=== PATIENT | male | born 1960 | race Caucasian/White ===

== ENCOUNTER 2020-07-27 15:31 | Outpatient (REF) | payer OTHER, SELFPAY ==
--- NOTE | ~2020-07-27 | XR_ITS ---
EXAMINATION: XR ANKLE, RIGHT CLINICAL INFORMATION: Pain and right ankle and right foot. COMPARISON: None TECHNIQUE: AP, lateral, and mortise views of the right ankle. FINDINGS: There is mild lateral malleolar soft tissue swelling. Ankle mortise and subtalar joints are normal. There is small calcaneal heel and retrocalcaneal enthesophytes. XR/XR ankle RT min 3V IMPRESSION: Small calcaneal heel and retrocalcaneal enthesophytes. No visible acute fracture or dislocation. Mild lateral malleolar soft tissue swelling.
== END 2020-07-27 15:32 | disposition home or self-care (01) ==
LOC: HO.HMGCX 15:31
PROVIDERS: PCP Nurse Practitioner Family; Visit Provider Nurse Practitioner Family
DX: M25.571 Pain in right ankle and joints of right foot (principal)
CPT/HCPCS: 73610

== ENCOUNTER 2020-08-01 06:09 | Outpatient (REF) | payer MEDICARE, SELFPAY ==
[2020-08-01 11:32] LABS: Alanine Aminotransferase 35 U/L (0-40); Albumin Level 4.3 g/dL (3.5-5.0); Alkaline Phosphatase 80 U/L (39-117); Anion Gap 16 (12-20); Aspartate Amino Transferase 25 U/L (5-37); Bilirubin Total 0.7 mg/dL (0.0-1.0); Blood Urea Nitrogen 18 mg/dL (9-16); Calcium 9.2 mg/dL (8.4-10.2); Carbon Dioxide 24 mmol/L (22-29); Chloride 106 mmol/L (96-108); Cholesterol 185 mg/dL; Estimated Glomerular Filt Rate > 60; Glucose Fasting 90 mg/dL (60-99); HDL Cholesterol 33 mg/dL; LDL Cholesterol Calculated 135 mg/dl; Potassium 4.5 mmol/L (3.3-5.1); Sodium 141 mmol/L (135-145); Total Protein 7.4 g/dL (6.5-8.0); Triglycerides 89 mg/dL
[2020-08-01 11:57] LABS: Prostate Specific Antigen Scr 5.77 ng/mL (<0.05-4.0); TSH reflex Free T4 3.51 uIU/mL (0.32-4.0)
== END 2020-08-01 06:10 | disposition home or self-care (01) ==
LOC: HO.HMGCLDS 06:09
PROVIDERS: PCP Nurse Practitioner Family; Visit Provider Nurse Practitioner Family
DX: I10 Essential (primary) hypertension (principal); Z12.5 Encounter for screening for malignant neoplasm of prostate
CPT/HCPCS: 36415; 80053; 80061; 84153; 84443

== ENCOUNTER → 2020-09-29 10:08 | Outpatient (BNVA) | payer MEDICARE, SELFPAY | PROVIDERS: PCP Nurse Practitioner Family; Visit Provider Internal Medicine | DX: E66.01 Morbid (severe) obesity due to excess calories (principal); G47.30 Sleep apnea, unspecified | CPT/HCPCS: 99202 ==

== ENCOUNTER 2020-10-05 06:10 | Outpatient (REF) | payer MEDICARE, SELFPAY ==
[2020-10-05 12:26] LABS: Alanine Aminotransferase 29 U/L (0-40); Albumin Level 4.4 g/dL (3.5-5.0); Alkaline Phosphatase 79 U/L (39-117); Anion Gap 16 (12-20); Aspartate Amino Transferase 23 U/L (5-37); Bilirubin Total 0.5 mg/dL (0.0-1.0); Blood Urea Nitrogen 31 mg/dL (9-16); Calcium 9.5 mg/dL (8.4-10.2); Carbon Dioxide 21 mmol/L (22-29); Chloride 109 mmol/L (96-108); Cholesterol 183 mg/dL; Estimated Glomerular Filt Rate > 60; Glucose Fasting 107 mg/dL (60-99); HDL Cholesterol 32 mg/dL; LDL Cholesterol Calculated 134 mg/dl; Potassium 4.7 mmol/L (3.3-5.1); Sodium 141 mmol/L (135-145); Total Protein 7.4 g/dL (6.5-8.0); Triglycerides 85 mg/dL
[2020-10-05 12:39] LABS: Prostate Specific Antigen Scr 7.94 ng/mL (<0.05-4.0); TSH reflex Free T4 2.17 uIU/mL (0.32-4.0)
== END 2020-10-05 06:11 | disposition home or self-care (01) ==
LOC: HO.HMGCLDS 06:10
PROVIDERS: PCP Nurse Practitioner Family; Visit Provider Nurse Practitioner Family
DX: Z00.00 Encounter for general adult medical examination without abnormal findings (principal); Z12.5 Encounter for screening for malignant neoplasm of prostate
CPT/HCPCS: 36415; 80053; 80061; 84153; 84443

== ENCOUNTER → 2020-10-11 12:49 | Outpatient (REF) | payer OTHER, SELFPAY | LOC: HO.SL 12:49 | PROVIDERS: PCP Nurse Practitioner Family; Visit Provider Internal Medicine | DX: G47.33 Obstructive sleep apnea (adult) (pediatric) (principal); E66.01 Morbid (severe) obesity due to excess calories | CPT/HCPCS: 95806 ==

== ENCOUNTER → 2020-11-14 14:11 | Outpatient (BNVA) | payer OTHER, SELFPAY | PROVIDERS: PCP Nurse Practitioner Family; Visit Provider Internal Medicine | DX: E66.01 Morbid (severe) obesity due to excess calories (principal); G47.30 Sleep apnea, unspecified | CPT/HCPCS: 99212 ==

== ENCOUNTER 2021-04-07 06:10 | Outpatient (REF) | payer OTHER, SELFPAY ==
[2021-04-07 11:50] LABS: Appearance Urine CLEAR; Color Urine YELLOW; Glucose Urine UA NEG (NEG); Leukocyte Esterase Urine NEG (NEG); Nitrite Urine NEG (NEG); PH 5.5 (5.0-8.0); Specific Gravity - Urine >= 1.030 (1.005-1.025); UACC Culture Trigger NO; Urine Blood NEG (NEG); Urine Ketones NEG (NEG); Urine Protein 1+ MG/DL (NEG-TRACE)
[2021-04-07 12:20] LABS: Alanine Aminotransferase 36 U/L (0-40); Albumin Level 4.2 g/dL (3.5-5.0); Alkaline Phosphatase 73 U/L (39-117); Anion Gap 13 (12-20); Aspartate Amino Transferase 24 U/L (5-37); Bilirubin Total 0.5 mg/dL (0.0-1.0); Blood Urea Nitrogen 17 mg/dL (9-16); Calcium 9.4 mg/dL (8.4-10.2); Carbon Dioxide 23 mmol/L (22-29); Chloride 111 mmol/L (96-108); Cholesterol 165 mg/dL; Estimated Glomerular Filt Rate > 60; Glucose Fasting 98 mg/dL (60-99); HDL Cholesterol 28 mg/dL; LDL Cholesterol Calculated 118 mg/dl; Potassium 4.2 mmol/L (3.3-5.1); Sodium 143 mmol/L (135-145); Total Protein 7.2 g/dL (6.5-8.0); Triglycerides 99 mg/dL
[2021-04-07 12:29] LABS: RBC Urine 0 /HPF (0); WBC Urine 0 /HPF (0-4)
[2021-04-07 12:30] LABS: Mucus Urine 1+ /LPF; Squamous Epithelial Cell Urine TRACE /LPF
[2021-04-07 12:40] LABS: TSH reflex Free T4 2.95 uIU/mL (0.32-4.0)
== END 2021-04-07 06:11 | disposition home or self-care (01) ==
LOC: HO.HMGCLDS 06:10
PROVIDERS: PCP Nurse Practitioner Family; Visit Provider Nurse Practitioner Family
DX: I10 Essential (primary) hypertension (principal)
CPT/HCPCS: 36415; 80053; 80061; 81001; 81003; 84443

== ENCOUNTER 2021-05-15 11:52 | Outpatient (REF) | payer OTHER, SELFPAY ==
[2021-05-15 14:37] LABS: Prostate Specific Antigen Scr 7.42 ng/mL (<0.05-4.0)
== END 2021-05-15 11:53 | disposition home or self-care (01) ==
LOC: HO.HMGCLDS 11:52
PROVIDERS: PCP Nurse Practitioner Family; Visit Provider Nurse Practitioner Family
DX: Z12.5 Encounter for screening for malignant neoplasm of prostate (principal)
CPT/HCPCS: 36415; 84153

== ENCOUNTER 2021-12-25 10:02 | Outpatient (REF) | payer OTHER, SELFPAY ==
--- NOTE | ~2021-12-25 | XR_ITS ---
EXAMINATION: XR KNEE AP STANDING CLINICAL INFORMATION: Bilateral knee pain COMPARISON: None TECHNIQUE: AP bilateral standing view of the knees was obtained. Weightbearing lateral view left knee FINDINGS: There is severe loss of medial compartment joint space with bone versus bone apposition and moderate periarticular spurring. There is genu varus deformity of both knees. No lytic or sclerotic process seen. There is mild superior patellar spurring. Mild suprapatellar joint effusion is noted on weightbearing lateral view. XR/XR knee standing BI IMPRESSION: Severe degenerative changes bilateral knee medial compartments with sclerosis. Genu of varus deformity bilateral knee. Mild suprapatellar joint effusion with a moderate-sized superior patellar spur.
== END 2021-12-25 10:03 | disposition home or self-care (01) ==
LOC: HO.HMGCX 10:02
PROVIDERS: PCP Nurse Practitioner Family; Visit Provider Nurse Practitioner Family
DX: M25.561 Pain in right knee (principal); M25.562 Pain in left knee
CPT/HCPCS: 73565

== ENCOUNTER → 2022-02-06 08:48 | Outpatient (BNVA) | payer OTHER, SELFPAY | PROVIDERS: PCP Nurse Practitioner Family; Visit Provider Physician Assistant | DX: M17.0 Bilateral primary osteoarthritis of knee (principal) | CPT/HCPCS: 20610; 99202; J1040 ==

== ENCOUNTER 2022-03-06 07:54 | Outpatient (REF) | payer OTHER, SELFPAY ==
[2022-03-06 11:41] LABS: Appearance Urine Clear; Color Urine Yellow; Glucose Urine UA Negative (Negative); Leukocyte Esterase Urine Negative (Negative); Nitrite Urine Negative (Negative); PH 5.5 (5.0-9.0); Urine Blood Negative (Negative); Urine Ketones Negative (Negative); Urine Protein Negative (Neg-Trace)
[2022-03-06 11:49] LABS: MANUAL DIFF FLAG NO
[2022-03-06 11:56] LABS: Basophils Absolute Auto 0.1 X10*3/uL (0.0-0.2); Basophils Percent Auto 1.1 % (0-2); Eosinophils Absolute Auto 0.3 X10*3/uL (0.0-0.4); Eosinophils Percent Auto 4.1 % (0-4); Hematocrit 48.2 % (42.0-52.0); Imm Gran Abs Auto 0.01 X10*3/uL (0.00-0.03); Imm Gran Pct Auto 0.2 % (0.0-0.4); Lymphocytes Absolute Auto 1.7 X10*3/uL (1.2-4.9); Lymphocytes Percent Auto 24.9 % (20-40); Mean Corpuscular HGB Conc 33.2 g/dl (31.0-36.0); Mean Corpuscular Hemoglobin 28.2 pg (27.0-33.0); Mean Platelet Volume 9.4 fL (9.4-12.4); Monocytes Absolute Auto 0.5 X10*3/uL (0.1-1.2); Monocytes Percent Auto 7.5 % (2-11); Neutrophils Absolute Auto 4.2 x10*3/uL (2.0-8.3); Neutrophils Percent Auto 62.2 % (45-73); Platelet Count 203 X10*3/uL (160-400); Red Blood Count 5.67 X10*6/uL (4.60-5.80); Red Cell Distribution Width 14.1 % (11.0-16.0); White Blood Count 6.7 X10*3/uL (4.8-10.8)
[2022-03-06 12:36] LABS: Alanine Aminotransferase 19 U/L (0-40); Albumin Level 4.3 g/dL (3.5-5.0); Alkaline Phosphatase 78 U/L (39-117); Anion Gap 16 (12-20); Aspartate Amino Transferase 17 U/L (5-37); Bilirubin Total 0.4 mg/dL (0.0-1.0); Blood Urea Nitrogen 22 mg/dL (9-16); Calcium 9.5 mg/dL (8.4-10.2); Carbon Dioxide 23 mmol/L (22-29); Chloride 106 mmol/L (96-108); Cholesterol 182 mg/dL; Estimated Glomerular Filt Rate > 60; Glucose Fasting 93 mg/dL (60-99); HDL Cholesterol 38 mg/dL; LDL Cholesterol Calculated 133 mg/dl; Potassium 4.9 mmol/L (3.3-5.1); Sodium 140 mmol/L (135-145); Total Protein 7.5 g/dL (6.5-8.0); Triglycerides 55 mg/dL
[2022-03-06 13:20] LABS: TSH reflex Free T4 2.72 uIU/mL (0.32-4.0)
== END 2022-03-06 07:55 | disposition home or self-care (01) ==
LOC: HO.CHCLDS 07:54
PROVIDERS: PCP Nurse Practitioner Family; Visit Provider Nurse Practitioner Family
DX: I10 Essential (primary) hypertension (principal)
CPT/HCPCS: 36415; 80053; 80061; 81003; 84443; 85025

== ENCOUNTER → 2022-03-23 12:18 | Outpatient (BNVA) | payer OTHER, SELFPAY | PROVIDERS: PCP Nurse Practitioner Family; Visit Provider Physician Assistant | DX: M17.11 Unilateral primary osteoarthritis, right knee (principal); M17.12 Unilateral primary osteoarthritis, left knee | CPT/HCPCS: 20610; J7318 ==

== ENCOUNTER → 2022-08-07 08:01 | Outpatient (BNVA) | payer OTHER, SELFPAY | PROVIDERS: PCP Nurse Practitioner Family; Visit Provider Physician Assistant | DX: M17.0 Bilateral primary osteoarthritis of knee (principal); M21.162 Varus deformity, not elsewhere classified, left knee; M21.161 Varus deformity, not elsewhere classified, right knee; E66.01 Morbid (severe) obesity due to excess calories; Z68.42 Body mass index [BMI] 45.0-49.9, adult | CPT/HCPCS: 20610; 99212; J1040 ==

== ENCOUNTER 2022-09-24 06:03 | Outpatient (REF) | payer OTHER, SELFPAY ==
[2022-09-24 11:30] LABS: MANUAL DIFF FLAG NO
[2022-09-24 11:43] LABS: Appearance Urine Clear; Color Urine Yellow; Glucose Urine UA Negative (Negative); Leukocyte Esterase Urine Negative (Negative); Nitrite Urine Negative (Negative); PH 5.5 (5.0-9.0); UMIC TRIGGER UACC YES; Urine Blood Negative (Negative); Urine Ketones Negative (Negative); Urine Protein 30 (1+) mg/dL (Neg-Trace)
[2022-09-24 11:50] LABS: Bacteria Urine None Seen (None Seen); Basophils Absolute Auto 0.1 X10*3/uL (0.0-0.2); Basophils Percent Auto 1.4 % (0-2); Eosinophils Absolute Auto 0.3 X10*3/uL (0.0-0.4); Eosinophils Percent Auto 4.3 % (0-4); Hematocrit 48.7 % (42.0-52.0); Hemoglobin 16.1 g/dl (14.0-18.0); Hyaline Casts Urine 0-2 /LPF (0-2); Imm Gran Abs Auto 0.03 X10*3/uL (0.00-0.03); Imm Gran Pct Auto 0.4 % (0.0-0.4); Lymphocytes Absolute Auto 2.1 X10*3/uL (1.2-4.9); Lymphocytes Percent Auto 27.7 % (20-40); Mean Corpuscular HGB Conc 33.1 g/dl (31.0-36.0); Mean Corpuscular Hemoglobin 28.2 pg (27.0-33.0); Mean Corpuscular Volume 85.4 fL (80.0-98.0); Mean Platelet Volume 9.8 fL (9.4-12.4); Monocytes Absolute Auto 0.5 X10*3/uL (0.1-1.2); Monocytes Percent Auto 7.3 % (2-11); Neutrophils Absolute Auto 4.4 x10*3/uL (2.0-8.3); Neutrophils Percent Auto 58.9 % (45-73); Platelet Count 237 X10*3/uL (160-400); RBC Urine 0-2 /HPF (0-2); Red Cell Distribution Width 14.4 % (11.0-16.0); Squamous Epithelial Cell Urine 0-2 /HPF (0-2); WBC Urine 0-5 /HPF (0-5); White Blood Count 7.4 X10*3/uL (4.8-10.8)
[2022-09-24 12:09] LABS: Alanine Aminotransferase 21 U/L (0-40); Albumin Level 4.1 g/dL (3.5-5.0); Alkaline Phosphatase 77 U/L (39-117); Anion Gap 12 (12-20); Aspartate Amino Transferase 18 U/L (5-37); Bilirubin Total 0.6 mg/dL (0.0-1.0); Blood Urea Nitrogen 19 mg/dL (9-16); Calcium 9.2 mg/dL (8.4-10.2); Carbon Dioxide 24 mmol/L (22-29); Chloride 108 mmol/L (96-108); Cholesterol 189 mg/dL; Estimated Glomerular Filt Rate > 60; Glucose Fasting 105 mg/dL (60-99); HDL Cholesterol 33 mg/dL; LDL Cholesterol Calculated 142 mg/dl; Potassium 4.4 mmol/L (3.3-5.1); Sodium 140 mmol/L (135-145); Triglycerides 73 mg/dL
[2022-09-24 12:26] LABS: Prostate Specific Antigen Scr 8.11 ng/mL (<0.05-4.0); TSH reflex Free T4 3.59 uIU/mL (0.32-4.0)
[2022-09-25 10:54] LABS: Free Prostate Spec Ag 1.7 ng/mL; Percent Free Prostate Spec Ag 20 % (calc) (>25); Prostate Specific Ag Total 8.6 ng/mL (< OR = 4.0)
== END 2022-09-24 06:04 | disposition home or self-care (01) ==
LOC: HO.HMGCLDS 06:03
PROVIDERS: Absent Provider Physician Assistant; PCP Nurse Practitioner Family; Visit Provider Nurse Practitioner Family
DX: Z12.5 Encounter for screening for malignant neoplasm of prostate (principal); R97.20 Elevated prostate specific antigen [PSA]; I10 Essential (primary) hypertension
CPT/HCPCS: 36415; 80053; 80061; 81001; 84153; 84154; 84443; 85025

== ENCOUNTER 2022-11-29 08:37 | Outpatient (AMB) | payer OTHER, SELFPAY ==
--- NOTE | 2022-11-29 08:44 | A.OFFPC_ITS ---
Vital Signs 11/29/22 08:45 Height 5 ft 11 in Weight 345 lb 4 oz BMI 48.1 BP 130/78 Blood Pressure Location Lt brachial Position Sitting Pulse 89 Pulse Source Pulse Oximeter Pulse Oximetry (%) 96 Oxygen Delivery Method Room Air Intake Visit Reasons: Annual PE Allergies CLEAR TAPE Allergy (Unknown, Uncoded 11/29/22 08:47) RASH Medication List - Last Reconciled 11/29/22 by DELONTE Tejada amlodipine 10 mg PO DAILY 90 days aspirin 1 tab PO DAILY hydrocortisone 2.5% 1 appl topical TID PRN ketoconazole 2% 1 appl topical DAILY 14 days lisinopril 40 mg PO DAILY tadalafil 20 mg PO BEDTIME triamcinolone acetonide 0.1% 1 appl topical DAILY 30 days Tobacco use date assessed: 11/29/22 Dental Screening Dental Screen Date: 11/29/22 Did you have a dental visit in the last 12 months?: Yes Did you have a dental problem in the last 6 months where you did not have access to dental care?: No Was dental information given to patient?: Yes HPI Annual PE HPI Details Pt is here for a PE. Will order labs. PSA is up to date, sees urology. Colon screen is up to date. Pt reports dermatitis to his BLE. ? eczema. He uses triamcinolone cream which helps somewhat, will refill. Refuses pneumonia vaccines. Pt is requesting STD testing, though denies any symptoms, will order. [facility] Medical History Hx of diverticulitis of colon Morbid obesity Surgical History Hx of hernia repair Family History Father Hypertension CVD (cardiovascular disease) Mother Hypertension Social History Housing: House Alcohol intake: current Alcohol intake frequency: holidays/special occasions only Patient Tobacco Use Status: Never used Tobacco e-Cigarette/Vaping Use: Never Used Second Hand Smoke Exposure: No service: No Current occupational status: retired and disabled Cognitive needs: No Hearing needs: No Vision needs: No Questionnaire PHQ-9 Over the last 2 weeks, how often have you been bothered by any of the following problems? 03561 - PHQ-9 Billing: Patient declined-do not bill Source: Developed by Drs. Zackary Pace, Zuri Pickett, Jaime Young and colleagues, with an educational cecilia from [employer]. Thrive Questionnaire Date Thrive assessed: 11/29/22 I am a: Patient What is your living situation today?: I choose not to answer this question Within the past 12 months, did the food you bought not last and you didn't have the money to get more?: I choose not to answer this question Within the past 12 months, did you worry whether your food would run out before you got money to buy more?: I choose not to answer this question Do you have trouble paying for medicines?: I choose not to answer this question Do you have trouble getting transportation to medical appointments?: I choose not to answer this question Do you have trouble paying your heating and electricity bill?: I choose not to answer this question Do you have trouble taking care of your child, family member or friend?: I choose not to answer this question Do you have trouble with day-to-day activities such as bathing, preparing meals, shopping, managing finances, etc.?: I choose not to answer this question Are you currently unemployed and looking for a job?: I choose not to answer this question Are you interested in more education?: I choose not to answer this question Currently or been in a relationship where the following occur: I choose not to answer this question AUDIT C Alcohol Use Questionnaire (AUDIT-C) 1. How often do you have a drink containing alcohol?: Never Total Score: 0 Score Reviewed/Action Taken: Yes SREEKANTH-7 AMB Questionnaire SREEKANTH-7 Date SREEKANTH - 7 assessed: 11/29/22 Source: Developed by Drs. Zackary Pace, Zuri Pickett, Jaime Young and colleagues, with an educational cecilia from [employer]. SREEKANTH-7 Assessment Billing SREEKANTH-7 Assessment Tool: pt declined-do not bill Review of Systems Const Denies chills and Denies fever(s) Eyes Denies blurry vision ENT Denies vertigo, Denies dizziness and Denies sore throat Card Denies chest pain at rest, Denies chest pain with activity, Denies diaphoresis, Denies dyspnea and Denies dyspnea on exertion Resp Denies cough, Denies dyspnea, Denies dyspnea on exertion and Denies wheezing GI Denies abdominal pain, Denies melena, Denies hematochezia, Denies constipation, Denies diarrhea and Denies loose stools Denies hematuria Musc Denies numbness and Denies tingling Skin/Breast Denies lesions Neuro Denies vertigo, Denies dizziness, Denies numbness and Denies tingling Psych Denies anxiety, Denies depression, Denies homicidal ideation, Denies suicidal ideation and Denies other (substance abuse) Aller/Immun Denies wheezing Physical exam (Primary Care) Vital Signs: Last Vital Signs Pulse 89 11/29/22 08:45 BP 130/78 11/29/22 08:45 Pulse Ox 96 11/29/22 08:45 Oxygen Delivery Method Room Air 11/29/22 08:45 BMI result Body Mass Index 48.1 Tobacco/Smoking Status: Tobacco use Status Tobacco use date assessed 11/29/22 11/29/22 08:54 Patient Tobacco Use Status Never used Tobacco 11/29/22 08:54 e-Cigarette/Vaping Use Never Used 11/29/22 08:54 Thrive Assessment: Date of Thrive Assessment Date Thrive assessed 11/29/22 11/29/22 08:54 Currently or been in a relationship where the following occur: I choose not to answer this question Const General: cooperative Nutritional Appearance: obese morbidly obese Orientation/consciousness: patient oriented x3 HENMT Head: Yes normal to inspection, Yes normocephalic and Yes atraumatic Ears: TM's normal bilaterally Eyes General: appearance normal, both eyes and all related structures Alignment and Position: alignment normal and position normal Neck Neck: Yes normal visual inspection and Yes no lymphadenopathy Thyroid: Thyroid normal Resp Effort & Inspection: normal respiratory effort Auscultation: clear to auscultation bilaterally Cardio Rate: regular rate Rhythm: regular rhythm Heart sounds: S1 normal heart sound present, S2 normal heart sound present and no murmurs GI Palpation (GI): Soft to palpation and nontender Auscultation: normal bowel sounds Male General Exam: Yes normal external exam Penis: normal penis Scrotum: scrotum normal, testes descended bilaterally and no inguinal hernias Testes: no testicular mass Skin Other: macular circular slightly raised singular lesions throughout BLE, dry appearing, range in sizes, right hand 3rd finger medial aspect with faint scabbing, cracking, dermatitis, also noted extensively to right 5th finger, extensive healed scarring to abdomen Rashes: no rashes Neuro General: patient oriented x3, moves all extremities, no focal motor deficits and deep tendon reflexes 2+ bilaterally Romberg Test: Negative Psych Appearance: grossly normal Mental Status: mental status grossly normal Speech and movement: Normal speech and movement present Affect: normal affect Attitude: cooperative Thought process: Normal thought process present Thought content: Normal thought content present Insight: Good insight present (Psych) Judgement: Good judgement present (Psych) Assessment and Plan Assessment & Plan (1) Physical exam: Code(s): Z00.00 - Encounter for general adult medical examination without abnormal findings Plan: Labs ordered (2) Screening PSA (prostate specific antigen): Code(s): Z12.5 - Encounter for screening for malignant neoplasm of prostate (3) Screening for STD (sexually transmitted disease): Code(s): Z11.3 - Encounter for screening for infections with a predominantly sexual mode of transmission Plan: Labs ordered Plan The patient agreed to the use of a medical supervisor for this encounter. Scribed for PHOENIX Salamanca by Nohelia Rao medical supervisor, on 11/29/2022 at 09:00 EST. Orders: Orders Comprehensive Met. Panel Today Z00.00 - Encounter for general adult medical examination without abnormal findings Comprehensive [place]. Panel Fast Today Z00.00 - Encounter for general adult medical examination without abnormal findings Lipid Panel Today Z00.00 - Encounter for general adult medical examination without abnormal findings TSH reflex Free T4 Today Z00.00 - Encounter for general adult medical examination without abnormal findings UA CC w/rflx Micro + Cult Today Z00.00 - Encounter for general adult medical examination without abnormal findings CT NG by PCR Today Z11.3 - Encounter for screening for infections with a predominantly sexual mode of transmission Hepatitis A,B,C Profile Today Z11.3 - Encounter for screening for infections with a predominantly sexual mode of transmission HIV Ab/Ag Today Z11.3 - Encounter for screening for infections with a predominantly sexual mode of transmission Syphilis Screen Today Z11.3 - Encounter for screening for infections with a predominantly sexual mode of transmission Medications: Refilled triamcinolone acetonide 0.1% 1 appl topical DAILY 80 grams 0RF 30 days Coding Level of Care Code Est Pt Prev Care 40-64y(76244) Diagnoses Physical exam Z00.00 Screening PSA (prostate specific antigen) Z12.5 Screening for STD (sexually transmitted disease) Z11.3
[2022-11-29 08:45] VITALS: BP 130/78; PULSE 89; O2SAT 96; BMI 48.1
== END 2022-11-29 10:28 | disposition home or self-care (01) ==
PROVIDERS: Visit Provider Nurse Practitioner Family
DX: Z00.00 Encounter for general adult medical examination without abnormal findings (principal); Z12.5 Encounter for screening for malignant neoplasm of prostate; Z11.3 Encounter for screening for infections with a predominantly sexual mode of transmission
CPT/HCPCS: 99396

== ENCOUNTER 2022-12-11 06:15 | Outpatient (REF) | payer OTHER, SELFPAY ==
[2022-12-11 11:44] LABS: Appearance Urine Clear; Color Urine Yellow; Glucose Urine UA Negative (Negative); Leukocyte Esterase Urine Negative (Negative); Nitrite Urine Negative (Negative); UMIC TRIGGER UACC YES; Urine Blood Negative (Negative); Urine Ketones Negative (Negative); Urine Protein 30 (1+) mg/dL (Neg-Trace)
[2022-12-11 11:48] LABS: Bacteria Urine None Seen (None Seen); Hyaline Casts Urine 0-2 /LPF (0-2); RBC Urine 0-2 /HPF (0-2); Squamous Epithelial Cell Urine 0-2 /HPF (0-2); WBC Urine 0-5 /HPF (0-5)
[2022-12-11 13:13] LABS: Alanine Aminotransferase 21 U/L (0-40); Alkaline Phosphatase 71 U/L (39-117); Anion Gap 10 (12-20); Aspartate Amino Transferase 18 U/L (5-37); Bilirubin Total 0.4 mg/dL (0.0-1.0); Blood Urea Nitrogen 17 mg/dL (9-16); Calcium 9.4 mg/dL (8.4-10.2); Carbon Dioxide 24 mmol/L (22-29); Chloride 110 mmol/L (96-108); Cholesterol 180 mg/dL; Estimated Glomerular Filt Rate > 60; Glucose Fasting 105 mg/dL (60-99); Glucose Random 105 mg/dL (60-115); HDL Cholesterol 32 mg/dL; LDL Cholesterol Calculated 133 mg/dl; Potassium 4.2 mmol/L (3.3-5.1); Sodium 140 mmol/L (135-145); Total Protein 7.2 g/dL (6.5-8.0); Triglycerides 78 mg/dL
[2022-12-11 13:47] LABS: CT PCR NOT DETECTED (Not Detect.); NG PCR NOT DETECTED (Not Detect.)
[2022-12-12 03:59] LABS: Syphilis Screen Nonreactive (Nonreactive)
[2022-12-12 04:43] LABS: HBS Num1 4.51 mIU/mL (0-7.99); HBc Num1 0.08 S/CO (0.00-0.79); HBsAGNum1 0.33 S/CO (0.00-0.99); HIV AB/AG Nonreactive (Nonreactive); HIV Num 1 0.05 S/CO (0.00-0.99); Hepatitis A Antibody IgM 0.18 Index (0-0.79); Hepatitis B Core Antibody Nonreactive (Nonreactive); Hepatitis B Surface Antigen Negative (Negative); ~HepC Num1 0.06 S/CO (0.00-0.79); ~Hepatitis A Antibody IgM Nonreactive (Nonreactive); ~Hepatitis B Surface Antibody NONREACTIVE (Nonreactive); ~Hepatitis C Antibody Nonreactive (Nonreactive)
== END 2022-12-11 06:16 | disposition home or self-care (01) ==
LOC: HO.HMGCLDS 06:15
PROVIDERS: PCP Nurse Practitioner Family; Visit Provider Nurse Practitioner Family
DX: Z00.00 Encounter for general adult medical examination without abnormal findings (principal); Z11.4 Encounter for screening for human immunodeficiency virus [HIV]; Z20.2 Contact with and (suspected) exposure to infections with a predominantly sexual mode of transmission; E78.5 Hyperlipidemia, unspecified
CPT/HCPCS: 0353U; 80053; 80061; 81001; 84443; 86704; 86706; 86709; 86780; 86803; 87340; 87389

== ENCOUNTER 2023-01-17 09:30 | Outpatient (AMB) | payer OTHER, SELFPAY ==
[2023-01-17 09:32] VITALS: BMI 48.1
--- NOTE | 2023-01-17 09:32 | A.OFFVIS_ITS ---
Intake Vital Signs 01/17/23 09:32 Height 5 ft 11 in Weight 345 lb BMI 48.1 Intake Visit Reasons: OV - left knee pain Intake Note: Ralph is a 62 year old male who presents today for his follow up visit s/p bilateral knee injection from 08/07/22. States injection lasted about 2 months. He would like to discuss surgery vs injection today. States he needs a pair of new knees. Xrays updated in office. Allergies CLEAR TAPE Allergy (Unknown, Uncoded 01/17/23 09:36) RASH HPI OV - left knee pain HPI Details 62-year-old male who presents in the off ice today for a follow up of bilateral knee pain. The patient had a cortisone injection in the bilateral knees on 08/07/2022. He claims the injections gave him 2 months of relief. He reports the right knee being worse then the left knee. He would like to discuss surgical intervention verse injections while in the office today. He states he can not stand or ambulate for long periods of time. He states he avoids going to the [employer] due to not being able to walk the store. He states he is no longer able to do things that he enjoys doing due to pain in the bilateral knees. He confirms a history of prior surgery to remove bowel due to diverticulitis. He states he has a bad year with eczema. He denies a history of diabetes mellitus or high cholesterol. Patient has a BMI of 48.1 with a weight of 345 lbs while in the office today, 01/17/2023. [facility] Medical History Hx of diverticulitis of colon Morbid obesity Surgical History Hx of hernia repair Family History Father Hypertension CVD (cardiovascular disease) Mother Hypertension Social History Housing: House Alcohol intake: current Alcohol intake frequency: holidays/special occasions only Patient Tobacco Use Status: Never used Tobacco e-Cigarette/Vaping Use: Never Used Second Hand Smoke Exposure: No service: No Current occupational status: retired and disabled Cognitive needs: No Hearing needs: No Vision needs: No Review of Systems Const All systems reviewed & are unremarkable except as noted in HPI and below Physical Exam Vital Signs: BMI result Body Mass Index 48.1 Const General: cooperative, healthy appearing and no acute distress Resp Effort & Inspection: normal respiratory effort and able to speak in complete sentences Cardio Rate: regular rate Peripheral pulses: Peripheral pulses 2+ throughout GI Palpation (GI): Soft to palpation Skin Lesions: no lesions Rashes: no rashes Extrem Other: Bilateral knees: Varus deformity. Ambulates with antalgic gait. Crepitus with ROM. Full ROM. NVI. Assessment & Plan Assessment & Plan (1) Osteoarthritis of right knee: Code(s): M17.11 - Unilateral primary osteoarthritis, right knee Qualifiers: Osteoarthritis type: unspecified Qualified Code(s): M17.11 - Unilateral primary osteoarthritis, right knee (2) Osteoarthritis of left knee: Code(s): M17.12 - Unilateral primary osteoarthritis, left knee Qualifiers: Osteoarthritis type: unspecified Qualified Code(s): M17.12 - Unilateral primary osteoarthritis, left knee Plan Mr. Sutton is a 62-year-old male who presents in the office today for a follow up of bilateral knee pain. The patient had a cortisone injection in the bilateral knees on 08/07/2022. He claims the injections gave him 2 months of relief. He reports the right knee being worse then the left knee. He would like to discuss surgical intervention verse injections while in the office today. He states he can not stand or ambulate for long periods of time. He states he avoids going to the [employer] due to not being able to walk the store. He states he is no longer able to do things that he enjoys doing due to pain in the bilateral knees. He confirms a history of prior surgery to remove bowel due to diverticulitis. He states he has a bad year with eczema. He denies a history of diabetes mellitus or high cholesterol. Patient has a BMI of 48.1 with a weight of 345 lbs while in the office today, 01/17/2023. I discussed in detail of a right total knee arthroplasty and what to expect pre and post operatively. We discussed the risks, benefits and alternatives to the surgery as well as the rehabilitation course. The risks; which include, but are not limited to infection, bleeding, nerve injury, ongoing pain, swelling, and stiffness, perioperative risk of injury to bones and soft tissues, and blood clots. Dr. Blake was available to see the patient with me while in the office today and a collaborative treatment plan was made. His information was given to Oly ashby, our nurse navigator, to begin the process of surgical clearance. Follow up will be at his preoperative appointment, or sooner if needed. X-rays of the left knee which were obtained while in the office today and were reviewed by me, Maddi Jade PA-C, revealed left knee osteoarthritis. Orders: Orders XR knee LT 2V Today M25.569 - Pain in unspecified knee XR knee standing BI Today M25.569 - Pain in unspecified knee Patient Instructions: Scribed for Maddi Jade PA-C by Grace Callejas medical claims examiner, on 01/17/2023 at 9:32 am, EST. Coding Level of Care Code Est Pt Level 4 (35930) Diagnoses Osteoarthritis of right knee, unspecified osteoarthritis type M17.11 Osteoarthritis type: unspecified Osteoarthritis of left knee, unspecified osteoarthritis type M17.12 Osteoarthritis type: unspecified
== END 2023-01-17 10:29 | disposition home or self-care (01) ==
PROVIDERS: PCP Nurse Practitioner Family; Visit Provider Physician Assistant
DX: M17.0 Bilateral primary osteoarthritis of knee (principal)
CPT/HCPCS: 99214

== ENCOUNTER 2023-01-17 17:21 | Outpatient (REF) | payer OTHER, SELFPAY ==
--- NOTE | ~2023-01-17 | XR_ITS ---
EXAMINATION: XR KNEE, LEFT XR KNEE AP STANDING CLINICAL INFORMATION: Pain. COMPARISON: Radiographs dated 07/17/2020. TECHNIQUE: Four views of the left knee. AP bilateral standing view of the knees was obtained. FINDINGS: Bony alignment and mineralization are normal. There is moderately severe asymmetric narrowing of the medial joint space compartment of the right knee, and the lateral joint space compartment is well-maintained. The lateral and medial joint space compartments show peripheral osteophyte formation. There is marked asymmetric narrowing of the medial joint space compartment of the left knee. The left lateral and patellofemoral joint space compartment are well-maintained. There is left tricompartment peripheral osteophyte formation. No fracture, dislocation or significant joint effusion is seen. There is no foreign body. There is a moderate right and marked left valgus configuration. XR/XR knee standing BI IMPRESSION: 1. There is moderately severe degenerative change of the medial joint space compartment of the right knee, and mild degenerative change is seen of the lateral joint space compartment. 2. There is tricompartment osteoarthritic change of the left knee, most pronounced of the medial joint space compartment, where it is marked. 3. There is a moderate right and marked left valgus configuration.
--- NOTE | ~2023-01-17 | XR_ITS ---
EXAMINATION: XR KNEE, LEFT XR KNEE AP STANDING CLINICAL INFORMATION: Pain. COMPARISON: Radiographs dated 07/17/2020. TECHNIQUE: Four views of the left knee. AP bilateral standing view of the knees was obtained. FINDINGS: Bony alignment and mineralization are normal. There is moderately severe asymmetric narrowing of the medial joint space compartment of the right knee, and the lateral joint space compartment is well-maintained. The lateral and medial joint space compartments show peripheral osteophyte formation. There is marked asymmetric narrowing of the medial joint space compartment of the left knee. The left lateral and patellofemoral joint space compartment are well-maintained. There is left tricompartment peripheral osteophyte formation. No fracture, dislocation or significant joint effusion is seen. There is no foreign body. There is a moderate right and marked left valgus configuration. XR/XR knee LT 2V IMPRESSION: 1. There is moderately severe degenerative change of the medial joint space compartment of the right knee, and mild degenerative change is seen of the lateral joint space compartment. 2. There is tricompartment osteoarthritic change of the left knee, most pronounced of the medial joint space compartment, where it is marked. 3. There is a moderate right and marked left valgus configuration.
== END 2023-01-17 17:22 | disposition home or self-care (01) ==
LOC: HO.HOSX 17:21
PROVIDERS: Visit Provider Physician Assistant
DX: M17.0 Bilateral primary osteoarthritis of knee (principal)
CPT/HCPCS: 73560; 73565; 99212

== ENCOUNTER → 2023-03-19 12:34 | Outpatient (BNVA) | payer OTHER, SELFPAY | PROVIDERS: PCP Nurse Practitioner Family; Visit Provider Orthopaedic Surgery ==

== ENCOUNTER 2023-03-29 08:17 | Outpatient (REF) | payer OTHER, SELFPAY ==
[2023-03-29 10:25] LABS: MANUAL DIFF FLAG NO
[2023-03-29 10:29] LABS: Basophils Absolute Auto 0.1 X10*3/uL (0.0-0.2); Basophils Percent Auto 1.4 % (0-2); Eosinophils Absolute Auto 0.3 X10*3/uL (0.0-0.4); Eosinophils Percent Auto 5.9 % (0-4); Hematocrit 49.1 % (42.0-52.0); Hemoglobin 16.7 g/dl (14.0-18.0); Imm Gran Abs Auto 0.02 X10*3/uL (0.00-0.03); Imm Gran Pct Auto 0.4 % (0.0-0.4); Lymphocytes Absolute Auto 1.4 X10*3/uL (1.2-4.9); Lymphocytes Percent Auto 25.7 % (20-40); Mean Corpuscular Hemoglobin 28.3 pg (27.0-33.0); Mean Corpuscular Volume 83.1 fL (80.0-98.0); Monocytes Absolute Auto 0.5 X10*3/uL (0.1-1.2); Monocytes Percent Auto 8.2 % (2-11); Neutrophils Absolute Auto 3.3 x10*3/uL (2.0-8.3); Neutrophils Percent Auto 58.4 % (45-73); Platelet Count 235 X10*3/uL (160-400); Red Blood Count 5.91 X10*6/uL (4.60-5.80); Red Cell Distribution Width 13.4 % (11.0-16.0); White Blood Count 5.6 X10*3/uL (4.8-10.8)
[2023-03-29 10:41] LABS: Appearance Urine Turbid; Color Urine Yellow; Glucose Urine UA Negative (Negative); Leukocyte Esterase Urine Negative (Negative); Nitrite Urine Negative (Negative); PH 5.5 (5.0-9.0); UMIC TRIGGER UACC YES; Urine Blood Negative (Negative); Urine Ketones Negative (Negative); Urine Protein 30 (1+) mg/dL (Neg-Trace)
[2023-03-29 10:43] LABS: Bacteria Urine None Seen (None Seen); Hyaline Casts Urine 0-2 /LPF (0-2); RBC Urine 0-2 /HPF (0-2); Squamous Epithelial Cell Urine 0-2 /HPF (0-2); WBC Urine 0-5 /HPF (0-5)
[2023-03-29 10:53] LABS: Alanine Aminotransferase 18 U/L (0-40); Albumin Level 4.2 g/dL (3.5-5.0); Alkaline Phosphatase 75 U/L (39-117); Anion Gap 11 (12-20); Aspartate Amino Transferase 20 U/L (5-37); Bilirubin Total 0.4 mg/dL (0.0-1.0); Blood Urea Nitrogen 16 mg/dL (9-16); Calcium 9.5 mg/dL (8.4-10.2); Carbon Dioxide 23 mmol/L (22-29); Chloride 111 mmol/L (96-108); Cholesterol 178 mg/dL (<200); Estimated Glomerular Filt Rate > 60; Glucose Fasting 108 mg/dL (60-99); HDL Cholesterol 26 mg/dL (>40); LDL Cholesterol Calculated 135 mg/dL (<100); Potassium 4.3 mmol/L (3.3-5.1); Sodium 141 mmol/L (135-145); Total Protein 7.7 g/dL (6.5-8.0); Triglycerides 85 mg/dL (<150)
[2023-03-29 11:08] LABS: TSH reflex Free T4 1.89 uIU/mL (0.32-4.0)
[2023-03-29 11:26] LABS: PSA,Total (Free>4and<10) 7.96 ng/mL (0.00-4.00)
[2023-04-01 10:13] LABS: Free Prostate Spec Ag 1.6 ng/mL; Percent Free Prostate Spec Ag 21 % (calc) (>25); Prostate Specific Ag Total 7.8 ng/mL (< OR = 4.0)
== END 2023-03-29 08:18 | disposition home or self-care (01) ==
LOC: HO.HMGCLDS 08:17
PROVIDERS: PCP Nurse Practitioner Family; Visit Provider Nurse Practitioner Primary Care
DX: Z00.00 Encounter for general adult medical examination without abnormal findings (principal); Z12.5 Encounter for screening for malignant neoplasm of prostate; I10 Essential (primary) hypertension
CPT/HCPCS: 36415; 80053; 80061; 81001; 84153; 84154; 84443; 85025

== ENCOUNTER 2023-04-01 07:32 | Outpatient (AMB) | payer OTHER, SELFPAY ==
--- NOTE | 2023-04-01 08:05 | MHC.PC.OV ---
Vital Signs 04/01/23 08:10 Height 5 ft 11 in Weight 336 lb BMI 46.9 BP 122/68 Blood Pressure Location Rt brachial Position Sitting Pulse 84 Pulse Source Pulse Oximeter Pulse Oximetry (%) 95 Oxygen Delivery Method Room Air Intake Visit Reasons: PreOp- right total knee replacement(EKG&labs) Intake Note: Pt is here today for a pre-op for Rt total knee replacement with Dr. Blake on 04/23/23 Allergies CLEAR TAPE Allergy (Unknown, Uncoded 04/01/23 08:08) RASH Medication List - Last Reconciled 04/01/23 by GARRETT Shea amlodipine 10 mg PO DAILY 90 days aspirin 1 tab PO DAILY hydrocortisone 2.5% 1 appl topical TID PRN ketoconazole 2% 1 appl topical DAILY 14 days lisinopril 40 mg PO DAILY tadalafil 20 mg PO BEDTIME triamcinolone acetonide 0.1% 1 appl topical DAILY 30 days walker Folding Front wheeled walker Tobacco use date assessed: 04/01/23 Dental Screening Dental Screen Date: 04/01/23 Did you have a dental visit in the last 12 months?: Yes Did you have a dental problem in the last 6 months where you did not have access to dental care?: No Was dental information given to patient?: Patient has dentist HPI HPI Comments History of Present Illness Details Patient is 62-year-old male in today for preoperative visit for right knee replacement scheduled to take place on 04/23/2023. He has a past medical history significant for primary hypertension, obesity, and sleep apnea. He has a past surgical history significant for colon resection and hernia repair. He has no significant cardiac history. Patient had in office EKG which demonstrates no changes from prior EKG taken on 03/27/23. He is currently taking aspirin 81 mg which he has been educated to hold 5 days prior to his surgical appointment. At the time of the appointment the patient has no complaints. [facility] Medical History Hx of diverticulitis of colon Morbid obesity Surgical History Hx of hernia repair Family History Father Hypertension CVD (cardiovascular disease) Mother Hypertension Housing: House Alcohol intake: current Alcohol intake frequency: holidays/special occasions only Patient Tobacco Use Status: Never used Tobacco e-Cigarette/Vaping Use: Never Used Second Hand Smoke Exposure: No service: No Current occupational status: retired and disabled Cognitive needs: No Hearing needs: No Vision needs: No Questionnaire Thrive Questionnaire Date Thrive assessed: 11/29/22 SREEKANTH-7 AMB Questionnaire SREEKANTH-7 Date SREEKANTH - 7 assessed: 11/29/22 Source: Developed by Drs. Zackary Pace, Zuri Pickett, Jaime Young and colleagues, with an educational cecilia from [employer]. Review of Systems Const Details: Constitutional : No Weight loss, No Fever, No Chills, No Fatigue, No Malaise Cardiovascular : No Chest Pain, No SOB, No Dyspnea on Exertion, No Orthopnea, No Edema, No Palpitations Respiratory : No Cough, No Sputum, No Wheezing Gastrointestinal : No Nausea, No Vomiting, No Diarrhea, No Constipation, No abdominal Pain, No Hematochezia, No Melena Musculoskeletal : Admits joint pain. Neuro : No Weakness, No Numbness, No Dizziness, No Headache Heme/Lymph: No Bruising, No Bleeding,No Lymphadenopathy All other systems reviewed and are negative Physical exam (Primary Care) Vital Signs: Last Vital Signs Pulse 84 04/01/23 08:10 BP 122/68 04/01/23 08:10 Pulse Ox 95 04/01/23 08:10 Oxygen Delivery Method Room Air 04/01/23 08:10 Vital signs reviewed and stable. BMI result Body Mass Index 46.9 Tobacco/Smoking Status: Tobacco use Status Tobacco use date assessed 04/01/23 04/01/23 08:10 Patient Tobacco Use Status Never used Tobacco 04/01/23 08:05 e-Cigarette/Vaping Use Never Used 04/01/23 08:05 Thrive Assessment: Date of Thrive Assessment Date Thrive assessed 11/29/22 04/01/23 08:05 Const Other: Appearance: Alert.? Oriented X3.? No acute distress.? Head: Normocephalic Neck: Normal inspection.? Neck supple.? CVS: Normal heart rate and rhythm.? Pulses normal.? Respiratory: No respiratory distress.? Breath sounds normal.? Abdomen: Soft and nontender.?Multiple scars from surgery. Skin: Skin warm and dry.? Normal skin color.? Normal skin turgor.? Extremities: Right knee weakness. Neuro: Oriented X 3.? No motor deficit.? No sensory deficit. CN 2-12 intact Results Reviewed Results Reviewed: Results reviewed with patient. Assessment and Plan Assessment & Plan (1) Pre-op evaluation: Code(s): Z01.818 - Encounter for other preprocedural examination Plan: Patient is scheduled to have right knee replacement on 04/23/2023. Reviewed patients current medication regimen, will recommend discontinuing aspirin use 5 days prior to his surgical appointment. In office EKG has been completed and documented with no change from previous EKG. Patient had no complaints at the time appointment. No need for prophylactic antibiotic treatment. Coding Level of Care Code Est Pt Level 3 (51934) Diagnoses Pre-op evaluation Z01.818 Time Spent (min) 25
[2023-04-01 08:10] VITALS: BP 122/68; PULSE 84; O2SAT 95; BMI 46.9
== END 2023-04-01 13:29 | disposition home or self-care (01) ==
PROVIDERS: PCP Nurse Practitioner Family; Visit Provider Nurse Practitioner Primary Care
DX: Z01.818 Encounter for other preprocedural examination (principal)
CPT/HCPCS: 99213

== ENCOUNTER 2023-04-18 09:12 | Outpatient (AMB) | payer OTHER, SELFPAY ==
--- NOTE | 2023-04-18 09:30 | MHC.OFFVIS ---
Intake Vital Signs 04/18/23 09:32 Height 5 ft 11 in Weight 336 lb BMI 46.9 Intake Visit Reasons: Preop RT TKA 04/23/23 Intake Note: Ralph johnson 62 year old male presents today for a preoperative right TKA, DOS 04/23/23. Pain management agreement reviewed and signed. Allergies CLEAR TAPE Allergy (Unknown, Uncoded 04/18/23 09:39) RASH Medication List - Last Reconciled 04/18/23 by Leah Ledbetter PA-C amlodipine 10 mg PO DAILY 90 days aspirin 1 tab PO DAILY lisinopril 40 mg PO DAILY tadalafil 20 mg PO BEDTIME PRN triamcinolone acetonide 0.1% 1 appl topical DAILY 30 days walker Folding Front wheeled walker HPI HPI Comments History of Present Illness Details Mr Sutton presents to the office today for preop visit. He is scheduled for right total knee arthroplasty with Dr. Blake. He continues to have ongoing pain and difficulty with ambulation in the right knee, which is affecting his quality of life; therefore, he has elected to move forward with surgery. He does live alone and does have family support. He does have a walker. He will be on one floor in the house he will reside on while recovering. [facility] Medical History (Updated 04/16/23 @ 12:22 by Trisha Quinn RN) Eczema HTN (hypertension) GERD (gastroesophageal reflux disease) Sleep apnea Morbid obesity Hx of diverticulitis of colon Surgical History (Updated 04/16/23 @ 12:21 by Trisha Quinn RN) H/O colonoscopy History of colon resection Hx of hernia repair Family History (Reviewed 11/29/22 @ 12:49 by Paul Bonilla [facility]) Father Hypertension CVD (cardiovascular disease) Mother Hypertension Social History (Reviewed 01/17/23 @ 10:02 by Ashwini Meneses [facility]) Housing: House Are you a primary home care attendant to a significant other at home: No Do you presently have visiting nurse or other home services: Yes (screen handler) Alcohol intake: current Alcohol intake frequency: does not drink Patient Tobacco Use Status: Never used Tobacco e-Cigarette/Vaping Use: Never Used Second Hand Smoke Exposure: No service: No Current occupational status: retired and disabled Cognitive needs: No Hearing needs: No Vision needs: No Review of Systems Const All systems reviewed & are unremarkable except as noted in HPI and below Physical Exam Vital Signs: BMI result Body Mass Index 46.9 Const General: cooperative and no acute distress Orientation/consciousness: patient oriented x3 HEENT Head: Yes normal to inspection, Yes normocephalic and Yes atraumatic Eyes General: appearance normal, both eyes and all related structures Neck Neck: Yes normal visual inspection and Yes no lymphadenopathy Resp Effort & Inspection: normal respiratory effort and able to speak in complete sentences Cardio Rate: regular rate Peripheral pulses: Peripheral pulses 2+ throughout GI Inspection: Yes normal to inspection Palpation (GI): Soft to palpation Skin General skin exam: no rashes or lesions noted Neuro General: patient oriented x3 Extrem Other: Right knee: Skin is intact. No abrasion or open wound. He does have some evidence of old scars from psoriasis. ROM is 0-100 degrees. Quad function is intact. He does have a varus deformity. Calf supple, nontender. NVI. Psych Appearance: grossly normal Mental Status: mental status grossly normal Assessment & Plan Assessment & Plan (1) Osteoarthritis of right knee: Code(s): M17.11 - Unilateral primary osteoarthritis, right knee Qualifiers: Osteoarthritis type: unspecified Qualified Code(s): M17.11 - Unilateral primary osteoarthritis, right knee Plan: I discussed in detail the procedure and what to expect pre and post operatively. We discussed the risks, benefits and alternatives to the surgery as well as the rehabilitation course. The risks; which include, but are not limited to infection, bleeding, nerve injury, ongoing pain, swelling, and stiffness, perioperative risk of injury to bones and soft tissues, and blood clots. I?ve answered all questions and with their understanding they have consented to move forward with Right total knee arthroplasty with Dr. Blake Patient Instructions: Scribed for Leah Ledbetter PA-C, by Arnie Lubin medical engineer, on 04/18/2023 at 9:45 AM EST. I, Leah Ledbetter PA-C, have personally reviewed and agree with the information entered by the scribe. Coding Level of Care Code Est Pt Level 3 (81412) Diagnoses Osteoarthritis of right knee, unspecified osteoarthritis type M17.11 Osteoarthritis type: unspecified
[2023-04-18 09:32] VITALS: BMI 46.9
== END 2023-04-18 10:14 | disposition home or self-care (01) ==
PROVIDERS: PCP Nurse Practitioner Family; Visit Provider Physician Assistant
DX: M17.11 Unilateral primary osteoarthritis, right knee (principal)
CPT/HCPCS: 99024

== ENCOUNTER → 2023-04-18 09:12 | Outpatient (BNVA) | payer OTHER, SELFPAY | PROVIDERS: PCP Nurse Practitioner Family; Visit Provider Physician Assistant | DX: Z01.818 Encounter for other preprocedural examination (principal); M17.11 Unilateral primary osteoarthritis, right knee | CPT/HCPCS: 99212 ==

== ENCOUNTER → 2023-04-23 07:30 | Outpatient (BNV) | payer OTHER, SELFPAY | PROVIDERS: Admitting Provider Orthopaedic Surgery; PCP Nurse Practitioner Family; Visit Provider Orthopaedic Surgery | DX: Z47.1 Aftercare following joint replacement surgery (principal); Z96.651 Presence of right artificial knee joint | CPT/HCPCS: 27447; 99024 ==

== ENCOUNTER 2023-04-23 09:45 | Inpatient (IN) | payer OTHER, SELFPAY ==
[2023-04-16 12:31] VITALS: BP 162/83; PULSE 78; RESP 20; O2SAT 95; BMI 46.6
--- NOTE | 2023-04-16 12:51 | P.CONAN_ITS ---
Documented by User: Joleen Molina NP 04/16/23 12:58 HPI - Anesthesia Eval Consult details Narrative: 62yo M for Right Knee Replacement Total Medically optimized No recent illness No CP/SOB with minimal activity. Limited to pain. STEFAN. Pt denies. GERD. PRN rolaids PMFSH Active Problems Active Problems: All Active Problems (Updated 04/16/23 @ 12:22 by Trisha Quinn RN) Screening for STD (sexually transmitted disease) (Acute) Atopic contact dermatitis (Acute) Tinea pedis (Acute) Osteoarthritis of left knee (Acute) Osteoarthritis of right knee (Acute) Bilateral knee pain (Acute) Right knee pain (Acute) GERD (gastroesophageal reflux disease) (Acute) Encounter for annual wellness visit (AWV) in Medicare patient (Acute) Screening PSA (prostate specific antigen) (Acute) Physical exam (Acute) Elevated PSA (Acute) Right ankle pain (Acute) Screening PSA (prostate specific antigen) (Acute) Sleep apnea (Acute) Essential (primary) hypertension (Acute) Morbid obesity (Acute) Past Medical History Medical History (Updated 04/16/23 @ 12:22 by Trisha Quinn RN) Eczema HTN (hypertension) GERD (gastroesophageal reflux disease) Sleep apnea Morbid obesity Hx of diverticulitis of colon Family History Family History Father Hypertension CVD (cardiovascular disease) Mother Hypertension Family history of problems with anesthesia: No Surgical History Surgical History (Updated 04/16/23 @ 12:21 by Trisha Quinn RN) H/O colonoscopy History of colon resection Hx of hernia repair History of Problems with Anesthesia: No Social History Social History Housing: House Are you a primary critical care physician assistant to a significant other at home: No Do you presently have visiting nurse or other home services: Yes (visiting housekeeper) Alcohol intake: current Alcohol intake frequency: does not drink Patient Tobacco Use Status: Never used Tobacco e-Cigarette/Vaping Use: Never Used Second Hand Smoke Exposure: No service: No Current occupational status: retired and disabled Cognitive needs: No Hearing needs: No Vision needs: No Meds Allergies Allergy/AdvReac Type Severity Reaction Status Date / Time CLEAR TAPE Allergy Unknown RASH Uncoded 04/18/23 09:39 Home Medications Medication Instructions Recorded Confirmed Last Taken Type aspirin 81 mg chewable tablet 1 tab PO DAILY 07/27/20 04/18/23 04/16/23 History tadalafil 20 mg tablet 20 mg PO BEDTIME PRN Erectile 08/23/21 04/18/23 Unknown History Dysfunction Exam Height,Weight and Vital Signs: Height 5 ft 11 in Weight 151.5 kg Last Vital Signs Pulse 78 04/16/23 12:31 Resp 20 04/16/23 12:31 BP 162/83 H 04/16/23 12:31 Pulse Ox 95 04/16/23 12:31 O2 Del Method Room Air 04/16/23 12:31 Pertinent Lab Results Pertinent Lab Results: Laboratory Tests 03/29/23 08:22 WBC 5.6 Hgb 16.7 Hct 49.1 Plt Count 235 Sodium 141 Potassium 4.3 Chloride 111 H Carbon Dioxide 23 BUN 16 Creatinine 1.07 Narrative Narrative: EKG 03/2023 NSR LAD Low Volt QRS ? inferior-posterior infarct Unchanged from previous per MD reading Airway Mallampati Class: II TM Dist: >3cm Neck ROM: Full Loose/Missing/Broken Teeth: Yes (Upper front missing) Heart: RRR Lungs: CTAB Assessment and Plan Assessment Anesthesia Assessment: Anesthesia Plan Discussed and PAT Visit Final Anesthetic Review Family History of Problems with Anesthesia: No History of Problems with Anesthesia: No Documented by User: Sukhdev Borrero MD 04/23/23 07:58 COUNTS INCLUDE 234 BEDS AT THE [facility] Past Medical History Medical History (Updated 04/16/23 @ 12:22 by Trisha Quinn RN) Eczema HTN (hypertension) GERD (gastroesophageal reflux disease) Sleep apnea Morbid obesity Hx of diverticulitis of colon Family History Family History Father Hypertension CVD (cardiovascular disease) Mother Hypertension Surgical History Surgical History (Updated 04/16/23 @ 12:21 by Trisha Quinn RN) H/O colonoscopy History of colon resection Hx of hernia repair Social History Social History Housing: House Are you a primary critical care physician assistant to a significant other at home: No Do you presently have visiting nurse or other home services: Yes (visiting housekeeper) Alcohol intake: current Alcohol intake frequency: does not drink Patient Tobacco Use Status: Never used Tobacco e-Cigarette/Vaping Use: Never Used Second Hand Smoke Exposure: No service: No Current occupational status: retired and disabled Cognitive needs: No Hearing needs: No Vision needs: No Meds Allergies Allergy/AdvReac Type Severity Reaction Status Date / Time CLEAR TAPE Allergy Unknown RASH Uncoded 04/18/23 09:39 Home Medications Medication Instructions Recorded Confirmed Last Taken Type aspirin 81 mg chewable tablet 1 tab PO DAILY 07/27/20 04/18/23 04/16/23 History tadalafil 20 mg tablet 20 mg PO BEDTIME PRN Erectile 08/23/21 04/18/23 Unknown History Dysfunction Assessment and Plan Final Anesthetic Review ASA Class: III Final Preanesthetic Review: No Changes in Pt Med Stat, Meds/Allgs Chart Reviewed, Consent Obtained/Reviewed and Anes Risks/Benef Reviewed Patient Risk: Intermediate Procedure Risk: Intermediate Anesthetic Plan Anesthetic Plan: Spinal, Regional Block and Agree w/ Assess. and Plan Disposition: Standard PACU
[2023-04-16 14:30] LABS: MRSA Nasal PCR NEGATIVE (Negative); SA Nasal PCR NEGATIVE (Negative)
[2023-04-23] VITALS (18 sets, daily range): BP systolic 95–167; BP diastolic 51–89; PULSE 71–97; RESP 14–18; TEMP 36–36.8; O2SAT 94–99; BMI 46.5
--- NOTE | ~2023-04-23 | XR_ITS ---
EXAMINATION: XR KNEE, RIGHT CLINICAL INFORMATION: Postop right knee COMPARISON: None available. TECHNIQUE: Four views of the right knee. FINDINGS: There is a total right knee prosthesis in satisfactory alignment. Immediate postoperative changes are present with gas in the suprapatellar bursa and arthur along the anterior skin line. XR/XR knee RT 2V IMPRESSION: Total right knee prosthesis in satisfactory alignment. Immediate postoperative changes are present.
[2023-04-23 06:42] LABS: Hematocrit 48.4 % (42.0-52.0); Hemoglobin 16.4 g/dl (14.0-18.0)
[2023-04-23] MEDS: Lactated Ringers 1,000 ML 100 ML IVCONT ×3 (06:53→20:59)
--- NOTE | 2023-04-23 07:43 | MHC.SHP ---
Pre-Procedural Eval Section A Date of Service: 04/23/23 The patient is an INPATIENT: No Changes since office visit: No Cold of Flu in the past 2 weeks, No New Medical Problems, No Changes in Medication and No Patient answered all questions The History & Physical has been completed within 30 days and I have reviewed it.: Yes Section B Chief Complaint: Unilateral primary osteoarthritis, right knee Allergies: Allergies Allergy/AdvReac Type Severity Reaction Status Date / Time CLEAR TAPE Allergy Unknown RASH Uncoded 04/18/23 09:39 Plan I have reviewed the history and physical and performed a pertinent physical examination on my patient. No changes have occurred unless specified. Time Spent With Patient Time: Total time managing care of this patient today ____ minutes.
--- NOTE | 2023-04-23 09:47 | P.BOP_ITS ---
Brief Operative Note Date of Service: 04/23/23 Pre-op diagnosis: right knee OA Post-op diagnosis: same Procedure: Right TKA Implants: [place] Triathlon posterior stabilized cemented 10/09/13ps/35a Surgeon: Morgan Blake MD Anesthesia: GETA Was an Instrument Processing Tech used for this Procedure?: Yes Instrument Processing Tech: Leah Ledbetter Estimated blood loss (mL): 50 Tourniquet time (min): 70 IV fluids (mL): 1,100 Pathology: other Condition: stable Disposition: PACU
[2023-04-23] MEDS: fentaNYL citrate/PF 100 MCG/2 ML VIAL 25 MCG IVPUSH ×4 (09:56→10:11)
--- NOTE | 2023-04-23 09:56 | W.PM.OPN ---
Operative Note Operative Note Date of Service: 04/23/23 Narrative: Date of Service: 04/23/23 Pre-op diagnosis: right knee OA Post-op diagnosis: same Procedure: Right TKA Implants: [place] Triathlon posterior stabilized cemented 10/09/13ps/35a Surgeon: Morgan Blake MD Anesthesia: GETA Was an Stain Remover used for this Procedure?: Yes Stain Remover: Leah Ledbetter Estimated blood loss (mL): 50 Tourniquet time (min): 70 IV fluids (mL): 1,100 Pathology: other Condition: stable Disposition: PACU Procedure in detail: The patient was brought to the operating room and prepped and draped in standard sterile fashion. A time-out was called to identify proper site proper procedure proper surgeon and IV antibiotics were administered. 1 g of IV tranexamic acid was administered. I began by making a midline incision to the retinaculum and performed a medial parapatellar arthrotomy. The patella was translated laterally and the knee was flexed up. The medial compartment was eburnated and the medial tibial plateau was eroded posteriorly. I performed a small medial peel and resected the infrapatellar fat pad. Bernardino's line was then used to drill my intramedullary femoral guide and my distal femur cut of 12 mm was made in 5 degrees of valgus while protecting the soft tissues. I then measured a # 6 femur and placed my cutting guide and made my anterior posterior and chamfer cuts protecting the soft tissues at all times. I then made my box but removing the PCL. Once I was satisfied with my cuts I turned my attention to the tibia. I removed the meniscus medially and laterally and , using an external cutting guide, in line with the tibial crest and the third ray, I made my distal tibial cut in 0 deg slope of while protecting the posterior soft tissues at all times. There was a far posteromedial uncontained defect. An extension block was used to confirm appropriate amount of bony resection. The #6 tibia was sitting on a flat bony surface. The posteromedial defect was not involved and minimal. I then sized a #6 tibia and once I was satisfied that there was complete tibial coverage I placed my trial and with the trial femur in place took the knee through range of motion. I was satisfied with the extension and flexion as well as the stability at 0, 30 and 90 degrees. I then turned my attention to the patella where I removed 1 cm from the undersurface of the patella and then trialed a 35a patellar button. Again the knee was taken through range of motion I was satisfied with the tracking. I then returned to the femur and prepared the tibia. A femoral bone plug was placed and the knee was irrigated copiously. I then cemented the patella, tibia and femur in standard fashion while applying axial compression. I trialed different inserts until I selected a #14 insert. The final insert was placed and local TXA was administered. Copious irrigation was performed The knee was then closed with a running Quill suture, a 3 0 Vicryl and arthur on the skin. Patient was then placed in sterile dressing and brought to recovery room in stable condition there were no known complications.
[2023-04-23] MEDS: oxyCODONE HCl Immed Release 5 MG TABLET PO ×5 (10:04→23:28)
[2023-04-23] MEDS: HYDROmorphone HCl 0.5 MG/0.5 ML SYRINGE 0.25 MG IVPUSH ×4 (10:41→20:50)
--- NOTE | 2023-04-23 11:25 | HO.PM.IMCN ---
History of Present Illness Data of Consult Service Date: 04/23/23 Requesting physician: Leah Ledbetter Primary Care Provider: Paul Bonilla [facility] HPI Reason for consult: medical management 62 year old male with history of htn, GERD, STEFAN not on CPAP, morbid obesity with BMI >46 who is a regular marijuana smoker admitted to orthopedic surgery for management of OA right knee s/p right TKA with consult placed hospitalist service for medical management. The patient denies any diagnosis of STEFAN. However on review chart, was diagnosed with moderate to severe obstructive sleep apnea with nocturnal hypoxemia with Dr. Wright in 11/2020, recommended for CPAP and overnight oximetry but patient did not proceed with this. He reports that he is working on weight loss. Denies cigarette smoking, illicit drug use, or etoh use. He reports pain is currently manageable at a 5/10 and has no other complaints at this time. Review of Systems Review of Systems: Yes all other systems are reviewed and are negative [facility] Medical History Eczema HTN (hypertension) GERD (gastroesophageal reflux disease) Sleep apnea Morbid obesity Hx of diverticulitis of colon Family History Father Hypertension CVD (cardiovascular disease) Mother Hypertension Surgical History (Updated 04/23/23 @ 11:44 by ZANE Sanderson) S/P total knee arthroplasty H/O colonoscopy History of colon resection Hx of hernia repair Social History Housing: House Are you a primary career technical counselor to a significant other at home: No Do you presently have visiting nurse or other home services: Yes (accounts officer) Alcohol intake: current Alcohol intake frequency: does not drink Comment: COUNTS CORRECT Patient Tobacco Use Status: Never used Tobacco e-Cigarette/Vaping Use: Never Used Second Hand Smoke Exposure: No Use of substances other than those prescribed or required for medical reasons: Yes Substance Use Frequency: Daily Have you been hit, kicked, punched, or otherwise hurt by someone within the past year? If so, by whom?: No Advance Directives: No Advance Directives Information Provided: No Advance Directives on File: No Recently lost weight without trying: No How much weight loss: 2-13 pounds Eating poorly because of decreased appetite: No Nutrition screen score: 1 Nutrition Risks: No Nutritional Risk Poor oral hygiene: Yes (missing teeth) service: No Current occupational status: retired and disabled Cognitive needs: No Hearing needs: No Vision needs: No Meds Allergies Allergy/AdvReac Type Severity Reaction Status Date / Time CLEAR TAPE Allergy Unknown RASH Uncoded 04/18/23 09:39 Active Medications: Current Medications Acetaminophen (Acetaminophen 325 Mg Tablet) 650 mg PO Q6H PRN PRN Reason: Pain, Mild (Pain Scale 1-3) Aspirin (Aspirin 325 Mg Tablet) 325 mg PO BID ESTEFANIA Celecoxib (Celecoxib 200 Mg Capsule) 200 mg PO BID ESTEFANIA Docusate Sodium (Docusate Sodium 100 Mg Capsule) 100 mg PO BID ESTEFANIA Hydromorphone HCl (Hydromorphone Hcl 0.5 Mg/0.5 Ml Syringe) 0.25 mg IVPUSH Q4H PRN; Protocol PRN Reason: Pain, Severe (Pain Scale 7-10) Lactated Ringer's (Lr) 1,000 mls @ 100 mls/hr IVCONT .Q10H ESTEFANIA Stop: 04/24/23 09:47 Cefazolin Sodium/Dextrose (Ancef) 2 gm in 50 mls @ 100 mls/hr IV POSTOP ONE Stop: 04/23/23 11:42 Non-Formulary Medication (Tadalafil) 20 mg PO BEDTIME PRN PRN Reason: Erectile Dysfunction Ondansetron HCl (Ondansetron Hcl 4 Mg/2 Ml Vial) 4 mg IVPUSH Q8H PRN PRN Reason: Nausea and Vomiting Oxycodone HCl (Oxycodone Hcl Immed Release 5 Mg Tablet) 5 mg PO Q4H PRN PRN Reason: Pain, Moderate(Pain Scale 4-6) Last Admin: 04/23/23 10:04 Dose: 5 mg Oxycodone HCl (Oxycodone Hcl Er 10 Mg Tab.Er.12h) 10 mg PO BID [facility] Sodium Chloride (0.9 % Sodium Chloride Flush 3 Ml Syringe) 3 ml IVFLUSH QSHIFT [facility] Triamcinolone Acetonide (Triamcinolone Acet 0.1 % Cream 15 Gm Tube) 1 appl TOPICAL DAILY ESTEFANIA; Protocol Home Medications Medication Instructions Recorded Confirmed Last Taken Type aspirin 81 mg chewable tablet 1 tab PO DAILY 07/27/20 04/18/23 04/16/23 History tadalafil 20 mg tablet 20 mg PO BEDTIME PRN Erectile 08/23/21 04/18/23 Unknown History Dysfunction Physical Exam Vital Signs and Narrative: Vital Signs: Last Vital Signs Temp 96.9 F 04/23/23 11:13 Pulse 72 04/23/23 11:13 Resp 18 04/23/23 11:13 BP 125/77 04/23/23 10:51 Pulse Ox 97 04/23/23 11:13 O2 Del Method Room Air 04/23/23 11:13 O2 Flow Rate 0 04/23/23 10:51 BMI result Body Mass Index 46.6 Constitutional - Awake and Alert, No apparent distress Eyes - PERRLA, EOMI Cardiovascular - S1S2, RRR, No edema. 2+ pedal pulses Respiratory - Normal lung expansion, Normal respiratory effort, No respiratory distress, CTA bilaterally Gastrointestinal - NT / ND; +BS; No rebound or guarding Extremities - no calf tenderness bilaterally, no swelling, warm Skin - Warm/Dry Neurological - Alert & oriented x3, sensation in tact Psychological - Appropriate affect Results Labs 04/23/23 06:30 Imaging Radiologist's Impressions: Impressions Knee X-Ray 04/23/23 10:35 IMPRESSION: Total right knee prosthesis in satisfactory alignment. Immediate postoperative changes are present. Assessment and Plan (1) Osteoarthritis of right knee: Qualifiers: Osteoarthritis type: unspecified Qualified Code(s): M17.11 - Unilateral primary osteoarthritis, right knee Status: Acute Plan 62 year old male with history of htn, GERD, STEFAN not on CPAP, morbid obesity with BMI >46 who is a regular marijuana smoker admitted to orthopedic surgery for management of OA right knee s/p right TKA with consult placed hospitalist service for medical management. #OA right knee s/p TKA POD0 -plan per ortho surgery #HTN -bp reasonably controlled -resume amlodipine tomorrow am -resume lisinopril on dc #gerd -tums prn #STEFAN -not on cpap. reviewed pulmonology findings of mod-severe STEFAN with nocturnal hypoxemia. Pt does not agree with findings. Educated on the importance of managing STEFAN to prevent complications/morbidity/mortality -also counseled on the importance of weight loss #Marijuana use -advised against smoking marijuana, consider alternative routes DVT prophylaxis- per ortho surgery Thank you for allowing me to participate in this consult. Signing off at this time. Please do not hesitate to call for further questions.
--- NOTE | 2023-04-23 11:34 | PHA.MEDREC ---
Pharmacy Consult ? Medication Reconciliation Pharmacy has completed the medication reconciliation with the patient and verified through claims hx.
[2023-04-23] MEDS: ceFAZolin Sodium/Dextrose,Iso 2 GM/50 ML PIGGYBACK IV (14:58)
[2023-04-23] MEDS: ondansetron HCL 4 MG/2 ML VIAL IVPUSH (16:24)
[2023-04-23] MEDS: oxyCODONE HCl ER 10 MG TAB.ER.12H PO (20:49)
[2023-04-23] MEDS: Celecoxib 200 MG CAPSULE PO (20:50)
[2023-04-23] MEDS: Docusate Sodium 100 MG CAPSULE PO (20:50)
[2023-04-23] MEDS: Acetaminophen 325 MG TABLET 650 MG PO (23:28)
[2023-04-24] MEDS: HYDROmorphone HCl 0.5 MG/0.5 ML SYRINGE 0.25 MG IVPUSH ×2 (00:42→05:21)
[2023-04-24 03:15] VITALS: BP 146/80; PULSE 90; RESP 14; TEMP 36.6; O2SAT 94
[2023-04-24] MEDS: oxyCODONE HCl Immed Release 5 MG TABLET PO ×2 (03:48→08:39)
[2023-04-24 06:30] LABS: MANUAL DIFF FLAG NO
[2023-04-24 06:35] LABS: Basophils Percent Auto 0.5 % (0-2); Eosinophils Absolute Auto 0.1 X10*3/uL (0.0-0.4); Eosinophils Percent Auto 0.6 % (0-4); Hematocrit 40.5 % (42.0-52.0); Hemoglobin 13.8 g/dl (14.0-18.0); Imm Gran Abs Auto 0.02 X10*3/uL (0.00-0.03); Imm Gran Pct Auto 0.2 % (0.0-0.4); Lymphocytes Absolute Auto 1.2 X10*3/uL (1.2-4.9); Lymphocytes Percent Auto 14.1 % (20-40); Mean Corpuscular HGB Conc 34.1 g/dl (31.0-36.0); Mean Corpuscular Hemoglobin 28.6 pg (27.0-33.0); Mean Corpuscular Volume 83.9 fL (80.0-98.0); Neutrophils Absolute Auto 6.2 x10*3/uL (2.0-8.3); Neutrophils Percent Auto 72.6 % (45-73); Platelet Count 203 X10*3/uL (160-400); Red Blood Count 4.83 X10*6/uL (4.60-5.80); Red Cell Distribution Width 13.5 % (11.0-16.0); White Blood Count 8.5 X10*3/uL (4.8-10.8)
[2023-04-24 06:50] LABS: Anion Gap 10 (12-20); Blood Urea Nitrogen 14 mg/dL (9-16); Calcium 8.6 mg/dL (8.4-10.2); Carbon Dioxide 24 mmol/L (22-29); Chloride 107 mmol/L (96-108); Estimated Glomerular Filt Rate > 60; Glucose Fasting 129 mg/dL (60-99); Potassium 3.9 mmol/L (3.3-5.1); Sodium 137 mmol/L (135-145)
[2023-04-24 07:27] VITALS: BP 146/80; PULSE 90; O2SAT 94
[2023-04-24 07:49] VITALS: BP 157/83; PULSE 87; RESP 18; TEMP 36.4; O2SAT 96
--- NOTE | 2023-04-24 07:50 | P.DS_ITS ---
DS: Providers Provider Date of Service: 04/24/23 Date of admission: 04/23/23 09:45 Primary care physician: DELONTE Fried Consults: 04/23/23 11:13 Consult to Hospitalist Routine Comment: Consulting Provider: Hospitalist Reason For Exam: medical managment DS: Diagnosis Discharge Diagnosis (1) Osteoarthritis of right knee: Status: Acute DS: Summary Hospital Course Hospital Course: The patient underwent a successful right total knee arthroplasty, they were transferred to PACU and then to the floor to recover. During their stay, their vitals were stable, afebrile at 97.8. Labs were unremarkable, H/H 13.8/40.5. POD 1 they were started on Aspirin 325mg po bid for DVT ppx, they also received Physical Therapy services twice a day. Prior to discharge, their dressing was clean dry and intact and the plan was to be discharged home with VNA services. Time Attestation Discharge coordination time: Less than 30 minutes Quality: Safe Use of Opioids Does Pt have an Active Cancer Diagnosis on the Problem List?: No Quality: Stroke Does the patient have a stroke diagnosis?: No Physical Exam Vital Signs: Vital Signs: Last Vital Signs Temp 97.8 F 04/24/23 03:15 Pulse 90 04/24/23 07:27 Resp 14 04/24/23 03:15 BP 146/80 H 04/24/23 07:27 Pulse Ox 94 04/24/23 07:27 O2 Del Method Room Air 04/24/23 03:15 O2 Flow Rate 0 04/23/23 10:51 BMI result Body Mass Index 46.5 Const: General: cooperative and no acute distress Orientation/consc iousness: patient oriented x3 HEENT: Head: Yes normal to inspection, Yes normocephalic and Yes atraumatic Eyes: General: appearance normal, both eyes and all related structures Neck: Neck: Yes normal visual inspection and Yes no lymphadenopathy Resp: Effort & Inspection: normal respiratory effort and able to speak in complete sentences Cardio: Rate: regular rate Peripheral pulses: Peripheral pulses 2+ throughout GI: Inspection: Yes normal to inspection Palpation (GI): Soft to palpation Skin: General skin exam: no rashes or lesions noted Neuro: General: patient oriented x3 Extrem: Other: Right knee dressing is c/d/i. Able to dorsi/plantar flex. Calf is supple and nontender. Sensation intact. Pedal pulse intact. Psych: Appearance: grossly normal Mental Status: mental status grossly normal DS: Data Data Completed and Pending Pending studies at discharge: Pending at discharge 04/23/23 09:22 Surgical [PTH] Routine Labs on day of discharge: Laboratory Results - last 24 hr 04/24/23 05:43 WBC 8.5 RBC 4.83 Hgb 13.8 L Hct 40.5 L MCV 83.9 MCH 28.6 MCHC 34.1 RDW 13.5 Plt Count 203 MPV 10.0 Immature Gran % (Auto) 0.2 Neut % (Auto) 72.6 Lymph % (Auto) 14.1 L [place] % (Auto) 12.0 H Eos % (Auto) 0.6 Baso % (Auto) 0.5 Lymph # (Auto) 1.2 [place] # (Auto) 1.0 Eos # (Auto) 0.1 Baso # (Auto) 0.0 Abs Immat Gran (auto) 0.02 Absolute Neuts (auto) 6.2 Absolute Nucleated RBC 0.000 Nucleated RBC % (auto) 0.0 Sodium 137 Potassium 3.9 Chloride 107 Carbon Dioxide 24 Anion Gap 10 L BUN 14 Creatinine 0.85 Estim Creat Clear Calc 133.0 Estimated GFR > 60 Fasting Glucose 129 H Calcium 8.6 D Discharge Plan Discharge Anticipated Discharge Date/Time: 04/24/23 07:45 Patient Disposition: Home Health Service Discharge Diagnosis: s/p RTKA Referrals: Maddi Jade PA-C [Physician Fitness Floor Attendant] - 05/09/23 1:45 pm Discharge Medications: New acetaminophen 325 mg Tablet 650 mg PO Q6H PRN (Reason: Pain, Mild (Pain Scale 1-3)) 30 Days Qty: 240 0RF aspirin 325 mg Tablet 325 mg PO BID 42 Days Qty: 84 0RF celecoxib 200 mg Capsule 200 mg PO BID 30 Days Qty: 60 0RF docusate sodium 100 mg Capsule 100 mg PO BID 30 Days Qty: 60 0RF oxycodone 5 mg Tablet 5 mg PO Q4H PRN (Reason: Pain, Moderate(Pain Scale 4-6)) 7 Days Qty: 42 0RF Rx Instructions: Partial Fill upon patient request. Continued (PETRA) asif Edmondson See Rx Instructions .MEDSUPPLY Qty: 1 0RF Rx Instructions: Folding Front wheeled walker lisinopril 40 mg tablet 40 mg PO DAILY Qty: 90 1RF amlodipine 10 mg tablet 10 mg PO DAILY 90 Days Qty: 90 1RF triamcinolone acetonide 0.1 % cream 1 appl topical DAILY 30 Days Qty: 80 0RF aspirin 81 mg tablet,chewable 1 tab PO DAILY tadalafil 20 mg tablet 20 mg PO BEDTIME PRN (Reason: Erectile Dysfunction) Discharge Orders: Discharge Order (Routine); Ordered 04/24/23 Ordered By: Maddi Jade Diet: Advance to usual diet Activity on Discharge: Use cane or walker Stand Alone Forms: Patient Portal Discharge page Care Plan Goals: restore fxn to right knee Health Concerns: None Plan of Treatment: Physical Therapy for ROM 0-120, quad strength, gait training. Use walker for ambulation Limit stair climbing, No shower, No tub bath, No driving Continue anticoagulant Keep Aquacel dressing clean, dry and intact. Follow up with orthopedics in 2 weeks Assessment: Stable for discharge
[2023-04-24] MEDS: Aspirin 325 MG TABLET PO (08:38)
[2023-04-24] MEDS: Celecoxib 200 MG CAPSULE PO (08:38)
[2023-04-24] MEDS: amLODIPine Besylate 10 MG TABLET PO (08:38)
[2023-04-24] MEDS: oxyCODONE HCl ER 10 MG TAB.ER.12H PO (08:38)
[2023-04-24] MEDS: Docusate Sodium 100 MG CAPSULE PO (08:38)
[2023-04-24] MEDS: Lactated Ringers 1,000 ML 100 ML IVCONT (08:40)
--- NOTE | 2023-04-24 09:00 | MHC.CM.PN ---
Addendum entered by Chyna Sullivan 04/24/23 15:30: Patient discharged today. Original Note: IMM 04/24/23 Male 62 S/P RTKA He lives by himself. His sister will stay with him to assist post op. He is independent at baseline. He declined the offer to document a HCP. A referral has been sent to [facility] at the patients request.
--- NOTE | 2023-04-24 09:44 | HO.POSTANES ---
Post Anesthesia Evaluation Post Anesthesia Evaluation Date of Service: 04/24/23 Vital Signs: Vital Signs Temp Pulse Resp BP Pulse Ox O2 Del Method 04/24/23 07:49 97.5 F 87 18 157/83 H 96 Room Air 04/24/23 07:27 90 146/80 H 94 04/24/23 03:15 97.8 F 90 14 146/80 H 94 Room Air Anesthesia: Spinal and Nerve Block Mental Status: Awake Pain Control: Satisfactory Nausea/Vomiting: None Hydration: Adequate Anesthesia-Related Issues: No Anes. Related Issues
[2023-04-24] MEDS: Acetaminophen 325 MG TABLET 650 MG PO (10:45)
== END 2023-04-24 11:23 | disposition home health service (06) | DRG 470 ==
LOC: HO.SSSA 10:27 → HO.S3 10:29
PROVIDERS: Orthopaedic Surgery; Admitting Provider Physician Assistant; PCP Nurse Practitioner Family; Visit Provider Physician Assistant
PROC: 0SRC0J9 Replacement of Right Knee Joint with Synthetic Substitute, Cemented, Open Approach (ICD-10-PCS; CPT 27447; principal; 2023-04-23 07:30)
DX: M17.11 Unilateral primary osteoarthritis, right knee (principal); Z68.42 Body mass index [BMI] 45.0-49.9, adult; I10 Essential (primary) hypertension; K21.9 Gastro-esophageal reflux disease without esophagitis; G47.33 Obstructive sleep apnea (adult) (pediatric); E66.01 Morbid (severe) obesity due to excess calories; G89.18 Other acute postprocedural pain; Z79.82 Long term (current) use of aspirin; Z79.899 Other long term (current) drug therapy
CPT/HCPCS: 36415; 73560; 80048; 85014; 85018; 85025; 86850; 86900; 86901; 87640; 87641; 88305; 88311; 97110; 97116; 97162; C1713; C1776; J0131; J0665; J0690; J1170; J1885; J2405; J2598; J2704; J2795; J3010; J7120

== ENCOUNTER → 2023-04-23 09:45 | Outpatient (BNV) | payer OTHER, SELFPAY | PROVIDERS: Admitting Provider Physician Assistant; PCP Nurse Practitioner Family; Visit Provider Physician Assistant | DX: M17.11 Unilateral primary osteoarthritis, right knee (principal); Z96.651 Presence of right artificial knee joint | CPT/HCPCS: 99222 ==

== ENCOUNTER 2023-05-09 13:09 | Outpatient (AMB) | payer OTHER, SELFPAY ==
--- NOTE | 2023-05-09 13:11 | MHC.OFFVIS ---
Intake Intake Visit Reasons: PO-RT TKA 04/23/23 Intake Note: Ralph is a 62 year old male who presents today for a post operative appointment s/p right, TKA 04/23/23 NE. Patient reports he is doing well Allergies CLEAR TAPE Allergy (Unknown, Uncoded 04/18/23 09:39) RASH HPI PO-RT TKA 04/23/23 HPI Details 62-year-old male who presents in the office today 2 weeks status post right total knee arthroplasty, which was performed on 04/23/[address] Blake. The patient reports he is doing well and has discontinued all narcotic medications. [facility] Medical History (Updated 04/26/23 @ 00:03 by Sunni Salmon) Osteoarthritis of right knee Eczema HTN (hypertension) GERD (gastroesophageal reflux disease) Sleep apnea Morbid obesity Hx of diverticulitis of colon Surgical History (Updated 05/09/23 @ 13:24 by Grace Callejas) S/P total knee arthroplasty H/O colonoscopy History of colon resection Hx of hernia repair Family History Father Hypertension CVD (cardiovascular disease) Mother Hypertension Social History Household Members: Spouse Housing: House Are you a primary janitor caretaker to a significant other at home: No Do you presently have visiting nurse or other home services: No Unable to assess alcohol history related to: Unknown Alcohol intake: current Alcohol intake frequency: does not drink Comment: COUNTS CORRECT Patient Tobacco Use Status: Never used Tobacco e-Cigarette/Vaping Use: Never Used Second Hand Smoke Exposure: No service: No Current occupational status: retired and disabled Cognitive needs: No Hearing needs: No Vision needs: No Review of Systems Const All systems reviewed & are unremarkable except as noted in HPI and below Physical Exam Const General: cooperative, healthy appearing and no acute distress Resp Effort & Inspection: normal respiratory effort and able to speak in complete sentences Cardio Rate: regular rate Peripheral pulses: Peripheral pulses 2+ throughout GI Palpation (GI): Soft to palpation Skin Lesions: no lesions Rashes: no rashes Extrem Other: Right knee: Incision site is clean, dry, and intact. Squire intact. No surrounding erythema or drainage. No signs of infection. ROM is 0-110. NVI. Assessment & Plan Assessment & Plan (1) Status post total knee replacement, right: Comment: 04/23/2023 Dr. Morgan Blake Code(s): Z96.651 - Presence of right artificial knee joint Plan Mr. Sutton is a 62-year-old male who presents in the office today 2 weeks status post right total knee arthroplasty, which was performed on 04/23/[address] Blake. The patient reports he is doing well. The patient reports he is doing well and has discontinued all narcotic medications. Pardeep were removed steri-stripes were applied. He will attend out patient physical therapy and an order was placed today. He was educated he is unable to drive for 6 weeks. Follow up will be in [address] Blake, or sooner if needed. Orders: Orders PT Evaluation and Treatment Today Z96.651 - Presence of right artificial knee joint Patient Instructions: Scribed for Maddi Jade PA-C by Grace Callejas medical stenographer, on 05/09/2023 at 1:11 pm, EST. Coding Level of Care Code Global (67072) Diagnoses Status post total knee replacement, right Z96.651
== END 2023-05-09 14:24 | disposition home or self-care (01) ==
PROVIDERS: PCP Nurse Practitioner Family; Visit Provider Physician Assistant
DX: Z96.651 Presence of right artificial knee joint (principal)
CPT/HCPCS: 99024

== ENCOUNTER → 2023-05-09 13:09 | Outpatient (BNVA) | payer OTHER, SELFPAY | PROVIDERS: PCP Nurse Practitioner Family; Visit Provider Physician Assistant | DX: Z47.1 Aftercare following joint replacement surgery (principal); Z96.651 Presence of right artificial knee joint | CPT/HCPCS: 99212 ==

== ENCOUNTER 2023-05-30 13:00 | Outpatient (RCR) | payer OTHER, SELFPAY ==
--- NOTE | 2023-05-17 12:46 | MHC.PT.EP ---
[facility] [place] Office [place] Office [place] Office [address] [phone] F: [phone] F: [phone] F: [phone] F: [phone] Physical Therapy Plan of Care Date of Evaluation: 05/17/23 Date of Surgery: Diagnosis: R TKA Assessment: Patient is a 62 year old R handed male who presents with s/s consistent with R TKA and R knee pain. He does not work but likes to walk at the mall and stay active. He lives by himself but has a sister close by. Patient past medical history includes hernia repair, GERD, sleep apnea and L knee OA. Current impairments include pain, balance, gait mechanics, ROM, strength, activity tolerance and functional mobility. Functional limitations include decreased ability to walk, stand, negotiate stairs, transfer, get in and out of shower and perform longer duration of weight bearing activities. Patient is motivated with good rehab potential. Skilled PT will address impairments and functional limitations in order to achieve goals. 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 Manual therapy to restore motion and function. Therapeutic exercise to improve strength and flexibility. Neuromuscular re-education for posture and balance. Therapeutic activities to return to functional activities of daily living. Electronically signed by: Joss Metz, PT Please sign and return to therapist. Thank you for your referral.
--- NOTE | 2024-01-09 09:10 | MHC.PT.EP ---
[facility] [place] Office [place] Office [place] Office [address] [phone] F: [phone] F: [phone] F: [phone] F: [phone] Physical Therapy Plan of Care Date of Evaluation: 05/17/23 Date of Surgery: Diagnosis: R TKA Assessment: Patient is a 62 year old R handed male who presents with s/s consistent with R TKA and R knee pain. He does not work but likes to walk at the mall and stay active. He lives by himself but has a sister close by. Patient past medical history includes hernia repair, GERD, sleep apnea and L knee OA. Current impairments include pain, balance, gait mechanics, ROM, strength, activity tolerance and functional mobility. Functional limitations include decreased ability to walk, stand, negotiate stairs, transfer, get in and out of shower and perform longer duration of weight bearing activities. Patient is motivated with good rehab potential. Skilled PT will address impairments and functional limitations in order to achieve goals. Frequency and Duration: The patient will be seen 2x/week for 5 weeks Short Term Goals: I with HEP - 2 weeks Symmetrical gait with no AD - 3 weeks AROM 0-125 - 3 weeks Plywood Scarfer Tender Goals: Symmetrical stair negotiation with 1 HH assist - 5 weeks Able to walk > 20 minutes without increased pain - 5 weeks LEFS 56/80 - 5 weeks Knee and hip strength 4+/5 grossly - 5 weeks Treatment Plan: Modalities to reduce pain, spasms and effusion. Manual therapy to restore motion and function. Therapeutic exercise to improve strength and flexibility. Neuromuscular re-education for posture and balance. Therapeutic activities to return to functional activities of daily living. Electronically signed by: Joss Metz, PT Please sign and return to therapist. Thank you for your referral.
--- NOTE | 2024-01-09 09:14 | MHC.PT.DC ---
[facility] [place] Office [place] Office [place] Office [address] [phone] F: [phone] F: [phone] F: [phone] F: [phone] Physical Therapy Discharge Report Diagnosis: R TKA Date of Surgery: Date of Evaluation: 05/17/23 Date of Discharge: 08/12/23 Treatments to Date: 3 Cancellations to Date: No Shows to Date: Discharge Status: Independent with HEP Patient Elected to Stop Discharge Summary: 05/30/23: continues to progress well and maintain ROM. stair mechanics cued for contra hip drop. 05/28/23: pt progressing very well with skilled PT. AAROM flexion to 130. still would like to see improvement with stair mechanics as descent control is lacking as well as CKC knee flexion. Patient is a 62 year old R handed male who presents with s/s consistent with R TKA and R knee pain. He does not work but likes to walk at the mall and stay active. He lives by himself but has a sister close by. Patient past medical history includes hernia repair, GERD, sleep apnea and L knee OA. Current impairments include pain, balance, gait mechanics, ROM, strength, activity tolerance and functional mobility. Functional limitations include decreased ability to walk, stand, negotiate stairs, transfer, get in and out of shower and perform longer duration of weight bearing activities. Patient is motivated with good rehab potential. Skilled PT will address impairments and functional limitations in order to achieve goals. Electronically signed by: Joss Metz, PT Please sign and return to therapist. Thank you for your referral.
== END 2024-01-09 09:10 | disposition home or self-care (01) ==
LOC: HO.PTCHIC 13:00
PROVIDERS: PCP Nurse Practitioner Family; Visit Provider Physician Assistant
DX: Z96.651 Presence of right artificial knee joint (principal)
CPT/HCPCS: 97110; 97162

== ENCOUNTER 2023-06-06 09:44 | Outpatient (AMB) | payer OTHER, SELFPAY ==
--- NOTE | 2023-06-06 09:56 | A.OFFVIS_ITS ---
Intake Intake Visit Reasons: PO-RT TKA 04/23/23 Intake Note: Ralph is a 62 year old male who presents today for a post operative appointment 6 weeks s/p right, TKA 04/23/23 NE. Patient reports that he is doing well, he has some numbness. He feels that the knee is strong, he is ambulating stairs normally now. He has been working therapy which is going well, has occasional flair up in pain after the session. Allergies CLEAR TAPE Allergy (Unknown, Uncoded 04/18/23 09:39) RASH HPI PO-RT TKA 04/23/23 HPI Details Ralph is a 62 year old man who presents ~6 weeks S/P right TKA. He says he is doing well, he feels his knee is strong and he is happy with the results of his surgery. He reports having some mild numbness about his incision site, and he says he has some flare-ups of increased pain after activity, usually following PT. He says this is tolerable. [facility] Medical History Osteoarthritis of right knee Eczema HTN (hypertension) GERD (gastroesophageal reflux disease) Sleep apnea Morbid obesity Hx of diverticulitis of colon Surgical History S/P total knee arthroplasty H/O colonoscopy History of colon resection Hx of hernia repair Family History Father Hypertension CVD (cardiovascular disease) Mother Hypertension Social History Household Members: Spouse Housing: House Are you a primary childcare administrator to a significant other at home: No Do you presently have visiting nurse or other home services: No Unable to assess alcohol history related to: Unknown Alcohol intake: current Alcohol intake frequency: does not drink Comment: COUNTS CORRECT Patient Tobacco Use Status: Never used Tobacco e-Cigarette/Vaping Use: Never Used Second Hand Smoke Exposure: No service: No Current occupational status: retired and disabled Cognitive needs: No Hearing needs: No Vision needs: No Review of Systems Const All systems reviewed & are unremarkable except as noted in HPI and below Physical Exam Const General: no acute distress, alert and awake Orientation/consciousness: patient oriented x3 HEENT Head: Yes normocephalic and Yes atraumatic Eyes EOM: EOMs intact bilaterally Resp Effort & Inspection: normal respiratory effort and able to speak in complete sentences Cardio Jugular venous distension: no JVD Skin General skin exam: turgor normal Rashes: no rashes Neuro General: patient oriented x3 Extrem Other: inc c/d/i 0-130 motion nl gait no effusion Psych Appearance: grossly normal Affect: normal affect Attitude: cooperative Assessment & Plan Assessment & Plan (1) Status post total knee replacement, right: Comment: 04/23/2023 Dr. Morgan Blake Code(s): Z96.651 - Presence of right artificial knee joint Plan: Doing great cont activity as tolerated dental prophylaxis strengthening exercises f/u 6 weeks Plan Prepared for Morgan Blake MD by Panchito Coppola, internist medical doctor md, on 06/06/23 at 10:02 AM, EST. Coding Level of Care Code Global (49544) Diagnoses Status post total knee replacement, right Z96.651
== END 2023-06-06 10:21 | disposition home or self-care (01) ==
PROVIDERS: PCP Nurse Practitioner Family; Visit Provider Orthopaedic Surgery
DX: Z96.651 Presence of right artificial knee joint (principal)
CPT/HCPCS: 99024

== ENCOUNTER → 2023-06-06 09:44 | Outpatient (BNVA) | payer OTHER, SELFPAY | PROVIDERS: PCP Nurse Practitioner Family; Visit Provider Orthopaedic Surgery | DX: Z47.1 Aftercare following joint replacement surgery (principal); Z96.651 Presence of right artificial knee joint | CPT/HCPCS: 99212 ==

== ENCOUNTER 2023-07-18 09:16 | Outpatient (AMB) | payer OTHER, SELFPAY ==
--- NOTE | 2023-07-18 09:48 | A.OFFVIS_ITS ---
Intake Intake Visit Reasons: OV-RT TKA 04/23/23- Confirmed Intake Note: Ralph is a 62 year old male who presents today for a post operative appointment s/p right, TKA 04/23/23 NE. Patient reports that he is doing well. He has returned to the gym for swimming and stationary biking. Ambulating well with no concerns. Booked for Left TKA 08/27/23 Allergies CLEAR TAPE Allergy (Unknown, Uncoded 07/18/23 09:53) RASH HPI OV-RT TKA 04/23/23- Confirmed HPI Details Ralph is a 62 year old male who presents today for a post operative appointment s/p right, TKA 04/23/23 NE. Patient reports that he is doing well. He has returned to the gym for swimming and stationary biking. He is ambulating well with no concerns. Booked for Left TKA 08/27/23 PFSH Medical History Osteoarthritis of right knee Eczema HTN (hypertension) GERD (gastroesophageal reflux disease) Sleep apnea Morbid obesity Hx of diverticulitis of colon Surgical History S/P total knee arthroplasty H/O colonoscopy History of colon resection Hx of hernia repair Family History Father Hypertension CVD (cardiovascular disease) Mother Hypertension Social History Household Members: Spouse Housing: House Are you a primary career technical supervisor to a significant other at home: No Do you presently have visiting nurse or other home services: No Unable to assess alcohol history related to: Unknown Alcohol intake: current Alcohol intake frequency: does not drink Comment: COUNTS CORRECT Patient Tobacco Use Status: Never used Tobacco e-Cigarette/Vaping Use: Never Used Second Hand Smoke Exposure: No service: No Current occupational status: retired and disabled Cognitive needs: No Hearing needs: No Vision needs: No Physical Exam Extrem Other: inc c/d/i 0-130 deg motion walking well Assessment & Plan Assessment & Plan (1) Status post total knee replacement, right: Comment: 04/23/2023 Dr. Morgan Blake Code(s): Z96.651 - Presence of right artificial knee joint Plan: Doing well Continue weight loss and ambulation and strengthening Coding Level of Care Code Global (17140) Diagnoses Status post total knee replacement, right Z96.651
== END 2023-07-18 13:29 | disposition home or self-care (01) ==
PROVIDERS: PCP Nurse Practitioner Family; Visit Provider Orthopaedic Surgery
DX: Z96.651 Presence of right artificial knee joint (principal)
CPT/HCPCS: 99024

== ENCOUNTER → 2023-07-18 09:16 | Outpatient (BNVA) | payer OTHER, SELFPAY | PROVIDERS: PCP Nurse Practitioner Family; Visit Provider Orthopaedic Surgery | DX: Z47.1 Aftercare following joint replacement surgery (principal); Z96.651 Presence of right artificial knee joint | CPT/HCPCS: 99212 ==

== ENCOUNTER 2023-08-07 15:13 | Outpatient (AMB) | payer OTHER, SELFPAY ==
--- NOTE | 2023-08-07 15:14 | MHC.PC.OV ---
Vital Signs 08/07/23 15:17 Height 5 ft 11 in Weight 334 lb BMI 46.6 BP 130/80 Blood Pressure Location Rt brachial Position Sitting Pulse 98 Pulse Source Pulse Oximeter Pulse Oximetry (%) 98 Oxygen Delivery Method Room Air Intake Visit Reasons: pre-op left TKA 08/27/23 - needs EKG,BMP,CBCwDIFF Intake Note: Patient here for Pre Op clearance for Left knee replacement. Allergies CLEAR TAPE Allergy (Unknown, Uncoded 08/07/23 17:21) RASH Medication List - Last Reconciled 08/07/23 by DELONTE Tejada acetaminophen 650 mg (2 x 325 mg) PO Q6H PRN 30 days amlodipine 10 mg PO DAILY 90 days aspirin 1 tab PO DAILY lisinopril 40 mg PO DAILY tadalafil 20 mg PO BEDTIME PRN triamcinolone acetonide 0.1% 1 appl topical DAILY PRN walker Folding Front wheeled walker Tobacco use date assessed: 08/07/23 Dental Screening Dental Screen Date: 08/07/23 Did you have a dental visit in the last 12 months?: No Did you have a dental problem in the last 6 months where you did not have access to dental care?: No Was dental information given to patient?: Patient has dentist HPI pre-op left TKA 08/27/23 - needs EKG,BMP,CBCwDIFF HPI Details Pt is here for a pre-op evaluation. He is scheduled to undergo a left TKA on 08/26. Will do an EKG in office. Will order labs. pt knows to stop ASA 7 days before surg PFSH Medical History Osteoarthritis of right knee Eczema HTN (hypertension) GERD (gastroesophageal reflux disease) Sleep apnea Morbid obesity Hx of diverticulitis of colon Surgical History S/P total knee arthroplasty H/O colonoscopy History of colon resection Hx of hernia repair Family History Father Hypertension CVD (cardiovascular disease) Mother Hypertension Social History Household Members: Spouse Housing: House Are you a primary career development engineer to a significant other at home: No Do you presently have visiting nurse or other home services: No Unable to assess alcohol history related to: Unknown Alcohol intake: current Alcohol intake frequency: does not drink Comment: COUNTS CORRECT Patient Tobacco Use Status: Never used Tobacco e-Cigarette/Vaping Use: Never Used Second Hand Smoke Exposure: No service: No Current occupational status: retired and disabled Cognitive needs: No Hearing needs: No Vision needs: No Questionnaire Thrive Questionnaire Date Thrive assessed: 04/24/23 SREEKANTH-7 AMB Questionnaire SREEKANTH-7 Date SREEKANTH - 7 assessed: 11/29/22 Source: Developed by Drs. Zackary Pace, Zuri Pickett, Jaime Young and colleagues, with an educational cecilia from [employer]. Review of Systems Const Denies chills and Denies fever(s) Eyes Denies blurry vision ENT Denies vertigo, Denies dizziness and Denies sore throat Card Denies chest pain at rest, Denies chest pain with activity, Denies diaphoresis, Denies dyspnea and Denies dyspnea on exertion Resp Denies cough, Denies dyspnea, Denies dyspnea on exertion and Denies wheezing GI Denies abdominal pain, Denies melena, Denies hematochezia, Denies constipation, Denies diarrhea and Denies loose stools Denies hematuria Musc Denies numbness and Denies tingling Skin/Breast Denies lesions Neuro Denies vertigo, Denies dizziness, Denies numbness and Denies tingling Psych Denies anxiety, Denies depression, Denies homicidal ideation, Denies suicidal ideation and Denies other (substance abuse) Aller/Immun Denies wheezing Physical exam (Primary Care) Vital Signs: Last Vital Signs Pulse 98 08/07/23 15:17 BP 130/80 08/07/23 15:17 Pulse Ox 98 08/07/23 15:17 Oxygen Delivery Method Room Air 08/07/23 15:17 BMI result Body Mass Index 46.6 Tobacco/Smoking Status: Tobacco use Status Tobacco use date assessed 08/07/23 08/07/23 15:20 Patient Tobacco Use Status Never used Tobacco 08/07/23 15:15 e-Cigarette/Vaping Use Never Used 08/07/23 15:15 Thrive Assessment: Date of Thrive Assessment Date Thrive assessed 04/24/23 08/07/23 15:15 Const General: cooperative Nutritional Appearance: obese morbidly obese Orientation/consciousness: patient oriented x3 Neck Neck: Yes no lymphadenopathy Resp Effort & Inspection: normal respiratory effort Auscultation: clear to auscultation bilaterally Cardio Rate: regular rate Rhythm: regular rhythm Heart sounds: S1 normal heart sound present, S2 normal heart sound present and no murmurs Neuro General: patient oriented x3 Psych Appearance: grossly normal Mental Status: mental status grossly normal Speech and movement: Normal speech and movement present Affect: normal affect Attitude: cooperative Thought process: Normal thought process present Thought content: Normal thought content present Insight: Good insight present (Psych) Judgement: Good judgement present (Psych) Assessment and Plan Assessment & Plan (1) Pre-op evaluation: Code(s): Z01.818 - Encounter for other preprocedural examination Plan: Labs ordered, EKG done in office Plan The patient agreed to the use of a medical parasitologist for this encounter. Scribed for GARRETT Salamanca-LAZARO by Nohelia Rao medical parasitologist, on 08/07/2023 at 15:50 EST. Orders: Orders Lipid Panel Today Z01.818 - Encounter for other preprocedural examination Complete Blood Count Auto Diff Today Z01.818 - Encounter for other preprocedural examination Comprehensive Banks. Panel Fast Today Z01.818 - Encounter for other preprocedural examination TSH reflex Free T4 Today Z01.818 - Encounter for other preprocedural examination UA CC w/rflx Micro + Cult Today Z01.818 - Encounter for other preprocedural examination Medications: Refilled triamcinolone acetonide 0.1% 1 appl topical DAILY PRN 80 grams 4RF dermatitis Coding Level of Care Code Est Pt Prev Care 40-64y(82312) Diagnoses Pre-op evaluation Z01.818
[2023-08-07 15:17] VITALS: BP 130/80; PULSE 98; O2SAT 98; BMI 46.6
== END 2023-08-07 17:09 | disposition home or self-care (01) ==
PROVIDERS: PCP Nurse Practitioner Family; Visit Provider Nurse Practitioner Family
DX: Z00.00 Encounter for general adult medical examination without abnormal findings (principal)
CPT/HCPCS: 99396

== ENCOUNTER 2023-08-12 06:23 | Outpatient (REF) | payer OTHER, SELFPAY ==
[2023-08-12 10:15] LABS: MANUAL DIFF FLAG NO
[2023-08-12 10:17] LABS: Appearance Urine Clear; Color Urine Yellow; Glucose Urine UA Negative (Negative); Leukocyte Esterase Urine Negative (Negative); Nitrite Urine Negative (Negative); PH 5.5 (5.0-9.0); Specific Gravity - Urine 1.015 (1.005-1.025); UMIC TRIGGER UACC YES; Urine Blood Negative (Negative); Urine Ketones Negative (Negative); Urine Protein 30 (1+) mg/dL (Neg-Trace)
[2023-08-12 10:22] LABS: Bacteria Urine None Seen (None Seen); Hyaline Casts Urine 0-2 /LPF (0-2); RBC Urine 0-2 /HPF (0-2); Squamous Epithelial Cell Urine 0-2 /HPF (0-2); WBC Urine 0-5 /HPF (0-5)
[2023-08-12 10:25] LABS: Basophils Absolute Auto 0.1 X10*3/uL (0.0-0.2); Basophils Percent Auto 1.2 % (0-2); Eosinophils Absolute Auto 0.3 X10*3/uL (0.0-0.4); Eosinophils Percent Auto 4.8 % (0-4); Hematocrit 48.4 % (42.0-52.0); Hemoglobin 16.1 g/dl (14.0-18.0); Imm Gran Abs Auto 0.02 X10*3/uL (0.00-0.03); Imm Gran Pct Auto 0.3 % (0.0-0.4); Lymphocytes Percent Auto 30.6 % (20-40); Mean Corpuscular HGB Conc 33.3 g/dl (31.0-36.0); Mean Corpuscular Hemoglobin 27.4 pg (27.0-33.0); Mean Corpuscular Volume 82.5 fL (80.0-98.0); Mean Platelet Volume 9.4 fL (9.4-12.4); Monocytes Absolute Auto 0.5 X10*3/uL (0.1-1.2); Monocytes Percent Auto 8.1 % (2-11); Neutrophils Absolute Auto 3.5 x10*3/uL (2.0-8.3); Platelet Count 251 X10*3/uL (160-400); Red Blood Count 5.87 X10*6/uL (4.60-5.80); Red Cell Distribution Width 13.6 % (11.0-16.0); White Blood Count 6.4 X10*3/uL (4.8-10.8)
[2023-08-12 11:08] LABS: Alanine Aminotransferase 15 U/L (0-40); Alkaline Phosphatase 76 U/L (39-117); Anion Gap 11 (12-20); Aspartate Amino Transferase 15 U/L (5-37); Bilirubin Total 0.4 mg/dL (0.0-1.0); Blood Urea Nitrogen 14 mg/dL (9-16); Calcium 8.9 mg/dL (8.4-10.2); Carbon Dioxide 23 mmol/L (22-29); Chloride 108 mmol/L (96-108); Cholesterol 165 mg/dL (<200); Estimated Glomerular Filt Rate > 60; Glucose Fasting 99 mg/dL (60-99); HDL Cholesterol 28 mg/dL (>40); LDL Cholesterol Calculated 120 mg/dL (<100); Potassium 4.1 mmol/L (3.3-5.1); Sodium 138 mmol/L (135-145); Total Protein 7.3 g/dL (6.5-8.0); Triglycerides 86 mg/dL (<150)
[2023-08-12 11:31] LABS: TSH reflex Free T4 3.64 uIU/mL (0.32-4.0)
== END 2023-08-12 06:24 | disposition home or self-care (01) ==
LOC: HO.HMGCLDS 06:23
PROVIDERS: PCP Nurse Practitioner Family; Visit Provider Nurse Practitioner Family
DX: Z01.818 Encounter for other preprocedural examination (principal); Z13.6 Encounter for screening for cardiovascular disorders
CPT/HCPCS: 36415; 80053; 80061; 81001; 84443; 85025

== ENCOUNTER 2023-08-22 12:15 | Outpatient (REF) | payer OTHER, SELFPAY ==
--- NOTE | ~2023-08-22 | XR_ITS ---
EXAMINATION: XR KNEE, LEFT CLINICAL INFORMATION: Pain in left knee Preop COMPARISON: Left knee 01/17/2023 TECHNIQUE: AP standing views of both knees and lateral sunrise view of the left knee FINDINGS: The right total knee prosthesis as a satisfactory appearance on the AP view. No fracture. Left knee: No fracture. There is severe narrowing of the medial joint compartment of the left knee with bone on bone appearance and medial translation of the femoral condyles with respect to the tibial plateau. There is moderate narrowing of the patellofemoral joint compartment. Small ossific or calcific densities are seen medial to the medial tibial plateau. Heterotopic bone formation is seen anterior and posterior to the femoral condyles on the lateral view. There are large marginal osteophytes most notable in the lateral and patellofemoral joint compartments. XR/XR knee LT 3V IMPRESSION: 1. Right total knee prosthesis without evidence of complication. 2. Severe osteoarthritis of the left knee.
== END 2023-08-22 12:16 | disposition home or self-care (01) ==
LOC: HO.HOSX 12:15
PROVIDERS: Visit Provider Physician Assistant
DX: T84.84XD Pain due to internal orthopedic prosthetic devices, implants and grafts, subsequent encounter (principal); Z96.652 Presence of left artificial knee joint
CPT/HCPCS: 73562; 99212

== ENCOUNTER 2023-08-22 12:16 | Outpatient (AMB) | payer OTHER, SELFPAY ==
--- NOTE | 2023-08-22 12:31 | MHC.OFFVIS ---
Vital Signs 08/22/23 12:32 Height 5 ft 11 in Weight 334 lb BMI 46.6 Intake Visit Reasons: Pre Op LT TKA 08/27/23 [place] Intake Note: Ralph is a 62 year old male who presents today for a pre operative appointment. He is scheduled for a Left TKA 08/27/[address] Morgan Blake. I have provided him with the pain management agreement form to review with provider. Allergies CLEAR TAPE Allergy (Unknown, Uncoded 08/22/23 12:32) RASH HPI Comments Details: Mr. Sutton presents to the office today for preop visit. He is scheduled for left total knee arthroplasty with Dr. Blake. He continues to have ongoing pain and difficulty with ambulation in the left knee, which is affecting his quality of life; therefore, he has elected to move forward with surgery. [facility] Medical History Osteoarthritis of right knee Eczema HTN (hypertension) GERD (gastroesophageal reflux disease) Sleep apnea Morbid obesity Hx of diverticulitis of colon Surgical History S/P total knee arthroplasty H/O colonoscopy History of colon resection Hx of hernia repair Family History Father Hypertension CVD (cardiovascular disease) Mother Hypertension Social History Household Members Other:: sister Housing: House Are you a primary direct care worker to a significant other at home: No Do you presently have visiting nurse or other home services: Yes ([facility] 1 x week) Unable to assess alcohol history related to: Unknown Alcohol intake: current Alcohol intake frequency: holidays/special occasions only Comment: COUNTS CORRECT Patient Tobacco Use Status: Never used Tobacco e-Cigarette/Vaping Use: Never Used Second Hand Smoke Exposure: No Use of substances other than those prescribed or required for medical reasons: Yes Substance Use Type: Marijuana Substance Use Frequency: Daily Substance Use Frequency Other:: Marijuana daily smoked or edibles Advance Directives: No Advance Directives Information Provided: Yes Advance Directives on File: No Healthcare Proxy: No service: No Current occupational status: retired and disabled Cognitive needs: No Hearing needs: No Vision needs: No Review of Systems Const All systems reviewed & are unremarkable except as noted in HPI and below Physical Exam Vital Signs: BMI result Body Mass Index 46.6 Const General: cooperative, healthy appearing, comfortable, no acute distress, well developed and alert Orientation/consciousness: patient oriented x3 HEENT Head: Yes normal to inspection, Yes normocephalic and Yes atraumatic Eyes General: appearance normal, both eyes and all related structures Neck Neck: Yes normal visual inspection and Yes no lymphadenopathy Resp Effort & Inspection: normal respiratory effort and able to speak in complete sentences Cardio Rate: regular rate Peripheral pulses: Peripheral pulses 2+ throughout GI Inspection: Yes normal to inspection Palpation (GI): Soft to palpation Skin General skin exam: no rashes or lesions noted Neuro General: patient oriented x3 Extrem Other: Left knee skin is intact there is no open wounds or abrasions ROM 0-95 Calf supple non tender NVI Psych Appearance: grossly normal Mental Status: mental status grossly normal Results Reviewed Results Reviewed: X-rays of the left knee obtained in the office today for preop planning significant for end-stage osteoarthritis with varus deformity Assessment & Plan Assessment & Plan (1) Osteoarthritis of left knee: Code(s): M17.12 - Unilateral primary osteoarthritis, left knee Category: Medical Qualifiers: Osteoarthritis type: unspecified Qualified Code(s): M17.12 - Unilateral primary osteoarthritis, left knee Plan: I discussed in detail the procedure and what to expect pre and post operatively. We discussed the risks, benefits and alternatives to the surgery as well as the rehabilitation course. The risks; which include, but are not limited to infection, bleeding, nerve injury, ongoing pain, swelling, and stiffness, perioperative risk of injury to bones and soft tissues, and blood clots. I?ve answered all questions and with their understanding they have consented to move forward with Left total knee arthroplasty with Dr. Blake Patient is requesting 10mg Oxycodone post op PT ordered:[facility] [place] Orders: Orders XR knee LT 3V Today M25.562 - Pain in left knee PT Evaluation and Treatment Today Z96.652 - Presence of left artificial knee joint
[2023-08-22 12:32] VITALS: BMI 46.6
== END 2023-08-22 13:22 | disposition home or self-care (01) ==
PROVIDERS: PCP Nurse Practitioner Family; Visit Provider Physician Assistant
DX: M17.12 Unilateral primary osteoarthritis, left knee (principal)
CPT/HCPCS: 99213

== ENCOUNTER 2023-08-28 05:59 | Inpatient (IN) | payer OTHER, SELFPAY ==
[2023-08-20 13:55] VITALS: BP 134/59; PULSE 94; RESP 16; O2SAT 95; BMI 47.7
[2023-08-20 16:00] LABS: MRSA Nasal PCR NEGATIVE (Negative); SA Nasal PCR NEGATIVE (Negative)
--- NOTE | 2023-08-27 09:00 | HO.ANESPROP2 ---
Documented by User: Joleen Molina NP 08/27/23 09:06 HPI - Anesthesia Eval Consult details Narrative: 62yo M for Left Knee Replacement Total Medically optimized by PCP PAT with Dr Callejas 08/20/23 [facility] Active Problems Active Problems: All Active Problems Status post total left knee replacement (Acute) Pre-op evaluation (Acute) Status post total knee replacement, right (Acute) Screening for STD (sexually transmitted disease) (Acute) Atopic contact dermatitis (Acute) Tinea pedis (Acute) Osteoarthritis of left knee (Acute) Bilateral knee pain (Acute) Right knee pain (Acute) GERD (gastroesophageal reflux disease) (Acute) Encounter for annual wellness visit (AWV) in Medicare patient (Acute) Screening PSA (prostate specific antigen) (Acute) Physical exam (Acute) Elevated PSA (Acute) Right ankle pain (Acute) Screening PSA (prostate specific antigen) (Acute) Sleep apnea (Acute) Essential (primary) hypertension (Acute) Morbid obesity (Acute) Past Medical History Medical History Osteoarthritis of right knee Eczema HTN (hypertension) GERD (gastroesophageal reflux disease) Sleep apnea Morbid obesity Hx of diverticulitis of colon Family History Family History Father Hypertension CVD (cardiovascular disease) Mother Hypertension Family history of problems with anesthesia: No Surgical History Surgical History S/P total knee arthroplasty H/O colonoscopy History of colon resection Hx of hernia repair History of Problems with Anesthesia: No Social History Social History Household Members Other:: sister Housing: House Are you a primary career development consultant to a significant other at home: No Do you presently have visiting nurse or other home services: Yes ([facility] [employer] 1 x week) Unable to assess alcohol history related to: Unknown Alcohol intake: current Alcohol intake frequency: holidays/special occasions only Comment: COUNTS CORRECT Patient Tobacco Use Status: Never used Tobacco e-Cigarette/Vaping Use: Never Used Second Hand Smoke Exposure: No Use of substances other than those prescribed or required for medical reasons: Yes Substance Use Type: Marijuana Substance Use Type Other:: medical canibis daily Have you been hit, kicked, punched, or otherwise hurt by someone within the past year? If so, by whom?: No Are you DNR?: No Advance Directives: No Advance Directives Information Provided: Yes Advance Directives on File: No Recently lost weight without trying: No Nutrition Risks: No Nutritional Risk service: No Current occupational status: retired and disabled Cognitive needs: No Hearing needs: No Vision needs: No Meds Allergies Allergy/AdvReac Type Severity Reaction Status Date / Time CLEAR TAPE Allergy Unknown RASH Uncoded 08/22/23 12:32 Home Medications ?Medication ?Instructions ?Recorded ?Confirmed ?Last Taken ?Type aspirin 81 mg chewable tablet 1 tab PO DAILY 07/27/20 08/20/23 08/21/23 History tadalafil 20 mg tablet 20 mg PO BEDTIME PRN Erectile 08/23/21 08/20/23 Unknown History Dysfunction Exam Height,Weight and Vital Signs: Height 5 ft 11 in Weight 155 kg Last Vital Signs Pulse 94 08/20/23 13:55 Resp 16 08/20/23 13:55 BP 134/59 L 08/20/23 13:55 Pulse Ox 95 08/20/23 13:55 O2 Del Method Room Air 08/20/23 13:55 Pertinent Lab Results Pertinent Lab Results: Laboratory Tests 08/20/23 08/20/23 14:15 14:30 Nasal Screen MRSA (PCR) NEGATIVE Nasal S. aureus Screen NEGATIVE Nasal MRSA/S.aureus Interp SEE NOTE Blood Type A Positive Antibody Screen NEGATIVE Laboratory Tests 08/12/23 06:28 WBC 6.4 Hgb 16.1 Hct 48.4 Plt Count 251 Sodium 138 Potassium 4.1 Chloride 108 Carbon Dioxide 23 BUN 14 Creatinine 0.97 Narrative Narrative: EKG 08/2023 NSR @ 90 LAD Low volt QRS Inferior-posterior infarct No change per pcp interpret Assessment and Plan Assessment Anesthesia Assessment: Chart Reviewed Final Anesthetic Review Family History of Problems with Anesthesia: No History of Problems with Anesthesia: No Documented by User: Francois Valera MD 08/28/23 07:16 [facility] Past Medical History Medical History Osteoarthritis of right knee Eczema HTN (hypertension) GERD (gastroesophageal reflux disease) Sleep apnea Morbid obesity Hx of diverticulitis of colon Family History Family History Father Hypertension CVD (cardiovascular disease) Mother Hypertension Surgical History Surgical History S/P total knee arthroplasty H/O colonoscopy History of colon resection Hx of hernia repair Social History Social History Household Members Other:: sister Housing: House Are you a primary career development consultant to a significant other at home: No Do you presently have visiting nurse or other home services: Yes ([facility] 1 x week) Unable to assess alcohol history related to: Unknown Alcohol intake: current Alcohol intake frequency: holidays/special occasions only Comment: COUNTS CORRECT Patient Tobacco Use Status: Never used Tobacco e-Cigarette/Vaping Use: Never Used Second Hand Smoke Exposure: No Use of substances other than those prescribed or required for medical reasons: Yes Substance Use Type: Marijuana Substance Use Type Other:: medical canibis daily Have you been hit, kicked, punched, or otherwise hurt by someone within the past year? If so, by whom?: No Are you DNR?: No Advance Directives: No Advance Directives Information Provided: Yes Advance Directives on File: No Recently lost weight without trying: No Nutrition Risks: No Nutritional Risk service: No Current occupational status: retired and disabled Cognitive needs: No Hearing needs: No Vision needs: No Meds Allergies Allergy/AdvReac Type Severity Reaction Status Date / Time CLEAR TAPE Allergy Unknown RASH Uncoded 08/22/23 12:32 Home Medications ?Medication ?Instructions ?Recorded ?Confirmed ?Last Taken ?Type aspirin 81 mg chewable tablet 1 tab PO DAILY 07/27/20 08/20/23 08/21/23 History tadalafil 20 mg tablet 20 mg PO BEDTIME PRN Erectile 08/23/21 08/20/23 Unknown History Dysfunction Exam Airway Mallampati Class: III TM Dist: <=3cm Neck ROM: Full Loose/Missing/Broken Teeth: Yes (8) Heart: rrr Lungs: cta Assessment and Plan Assessment Anesthesia Assessment: Anesthesia Plan Discussed Final Anesthetic Review NPO: Yes ASA Class: III Final Preanesthetic Review: No Changes in Pt Med Stat, Meds/Allgs Chart Reviewed, Consent Obtained/Reviewed and Anes Risks/Benef Reviewed Patient Risk: Intermediate Procedure Risk: Intermediate Assessment/Block/Sedation in SS: Assess/Block/Sedation-SS Anesthetic Plan Anesthetic Plan: Spinal and Regional Block Disposition: Standard PACU
[2023-08-28] VITALS (16 sets, daily range): BP systolic 103–175; BP diastolic 56–86; PULSE 68–100; RESP 14–20; TEMP 36.5–37; O2SAT 91–96
--- NOTE | ~2023-08-28 | XR_ITS ---
EXAMINATION: XR KNEE, LEFT CLINICAL INFORMATION: Post knee replacement COMPARISON: Previous x-ray 08/22/2023 TECHNIQUE: Two views of the left knee. FINDINGS: There is a new 3 component left knee replacement in satisfactory position. No fracture or dislocation. Postoperative changes to the soft tissues. XR/XR knee LT 2V IMPRESSION: Satisfactory appearance of left knee replacement.
[2023-08-28] MEDS: Lactated Ringers 1,000 ML 100 ML IVCONT ×3 (06:50→21:28)
--- NOTE | 2023-08-28 06:50 | PC.NURSE ---
pt noted to have superficial scabbed scratches on left iwlson. photo taken and sent to Dr. Blake - who okayed skin condition.
--- NOTE | 2023-08-28 07:12 | PHA.MEDREC ---
Pharmacy Consult ? Medication Reconciliation Pharmacy has completed the medication reconciliation. Reviewed med rec done by nursing
--- NOTE | 2023-08-28 07:29 | MHC.SHP ---
Pre-Procedural Eval Section A - 24 Hr Update-Section A only Date of Service: 08/28/23 The patient is an INPATIENT: No Changes since office visit: No Cold of Flu in the past 2 weeks, No New Medical Problems, No Changes in Medication and No Patient answered all questions The patient has been examined within 24 hours of the surgical procedure. The History & Physical has been completed within 30 days and I have reviewed it.: Yes Section B - Complete if H&P > 30 days Chief Complaint: lt tka Allergies: Allergies Allergy/AdvReac Type Severity Reaction Status Date / Time CLEAR TAPE Allergy Unknown RASH Uncoded 08/22/23 12:32 Plan I have reviewed the history and physical and performed a pertinent physical examination on my patient. No changes have occurred unless specified. Time Spent With Patient Time: Total time managing care of this patient today ____ minutes.
--- NOTE | 2023-08-28 07:31 | PC.NURSE ---
text to dr. lilly per request of dr. avalos anesthesiologist to come back to pt regarding testicular concern of pt. [id number]
--- NOTE | 2023-08-28 07:34 | PC.NURSE ---
dr. lilly at bedside with disccusion to pt
--- NOTE | 2023-08-28 09:54 | PM.OP ---
Brief Operative Note Date of Service: 08/28/23 Pre-op diagnosis: Left Knee OA Post-op diagnosis: same Procedure: Left TKA Implants: [place] [employer] /19ps/3a cemented Surgeon: Morgan Blake MD Anesthesia: regional and spinal Was an Financial Investment Adviser used for this Procedure?: Yes Financial Investment Adviser: Maddi Jade Estimated blood loss (mL): 25 Tourniquet time (min): 75 IV fluids (mL): 1,000 Pathology: other Condition: stable Disposition: PACU
[2023-08-28 10:40] LABS: MANUAL DIFF FLAG NO
[2023-08-28 10:43] LABS: Basophils Percent Auto 0.4 % (0-2); Eosinophils Absolute Auto 0.1 X10*3/uL (0.0-0.4); Eosinophils Percent Auto 0.9 % (0-4); Hematocrit 45.3 % (42.0-52.0); Hemoglobin 15.4 g/dl (14.0-18.0); Imm Gran Abs Auto 0.01 X10*3/uL (0.00-0.03); Imm Gran Pct Auto 0.1 % (0.0-0.4); Lymphocytes Absolute Auto 0.6 X10*3/uL (1.2-4.9); Lymphocytes Percent Auto 9.3 % (20-40); Mean Corpuscular Hemoglobin 27.6 pg (27.0-33.0); Mean Corpuscular Volume 81.2 fL (80.0-98.0); Mean Platelet Volume 9.2 fL (9.4-12.4); Monocytes Absolute Auto 0.1 X10*3/uL (0.1-1.2); Monocytes Percent Auto 1.6 % (2-11); Neutrophils Absolute Auto 6.1 x10*3/uL (2.0-8.3); Neutrophils Percent Auto 87.7 % (45-73); Platelet Count 216 X10*3/uL (160-400); Red Blood Count 5.58 X10*6/uL (4.60-5.80); Red Cell Distribution Width 13.7 % (11.0-16.0); White Blood Count 6.9 X10*3/uL (4.8-10.8)
--- NOTE | 2023-08-28 10:59 | PHA.MEDREC ---
Pharmacy Consult ? Medication Reconciliation Pharmacy has completed the medication reconciliation. Reviewed med rec done by nursing
[2023-08-28] MEDS: oxyCODONE HCl Immed Release 5 MG TABLET PO ×3 (12:48→23:25)
[2023-08-28] MEDS: Acetaminophen 325 MG TABLET 650 MG PO (12:48)
[2023-08-28] MEDS: oxyCODONE HCl ER 10 MG TAB.ER.12H PO ×2 (12:48→19:39)
[2023-08-28] MEDS: HYDROmorphone HCl 0.5 MG/0.5 ML SYRINGE 0.25 MG IVPUSH ×3 (13:42→21:06)
[2023-08-28] MEDS: ceFAZolin Sodium 3 GM in 0.9 % Sodium Chloride 100 ML IV (14:21)
--- NOTE | 2023-08-28 14:54 | HO.PM.IMCN ---
History of Present Illness Data of Consult Service Date: 08/28/23 Primary Care Provider: Paul Bonilla, [facility]- HPI 62-year-old man admitted with left knee osteoarthritis, status post left total knee arthroplasty. Surgery was unremarkable. Patient has been able to eat and drink without any nausea or vomiting. Patient is hemodynamically stable, vital signs stable he has new acute medical complaints at this time. Review of Systems Review of Systems: Denies any recent fever chills or decrease in appetite respiratory denies any shortness of breath or cough cardiovascular denies chest pain gastrointestinal denies any dysphagia abdominal pain nausea vomiting or diarrhea genitourinary denies any dysuria frequency or hematuria musculoskeletal surgical pain neuropsych denies any weakness or seizures all other systems reviewed are negative [facility] Medical History Osteoarthritis of right knee Eczema HTN (hypertension) GERD (gastroesophageal reflux disease) Sleep apnea Morbid obesity Hx of diverticulitis of colon Family History Father Hypertension CVD (cardiovascular disease) Mother Hypertension Surgical History S/P total knee arthroplasty H/O colonoscopy History of colon resection Hx of hernia repair Social History Household Members: None Household Members Other:: sister Housing: House Are you a primary residential care facility manager to a significant other at home: No Do you presently have visiting nurse or other home services: No Unable to assess alcohol history related to: Unknown Alcohol intake: current Alcohol intake frequency: holidays/special occasions only Comment: COUNTS CORRECT Patient Tobacco Use Status: Never used Tobacco e-Cigarette/Vaping Use: Never Used Second Hand Smoke Exposure: No Substance Use Type: Marijuana service: No Current occupational status: retired and disabled Cognitive needs: No Hearing needs: No Vision needs: No Meds Allergies Allergy/AdvReac Type Severity Reaction Status Date / Time CLEAR TAPE Allergy Unknown RASH Uncoded 08/22/23 12:32 Active Medications: Current Medications Acetaminophen (Acetaminophen 325 Mg Tablet) 650 mg PO Q6H PRN PRN Reason: Pain, Mild (Pain Scale 1-3) Last Admin: 08/28/23 12:48 Dose: 650 mg Amlodipine Besylate (Amlodipine Besylate 10 Mg Tablet) 10 mg PO DAILY [facility]; Protocol Aspirin (Aspirin 325 Mg Tablet) 325 mg PO BID [facility] Celecoxib (Celecoxib 200 Mg Capsule) 200 mg PO BID [facility] Docusate Sodium (Docusate Sodium 100 Mg Capsule) 100 mg PO BID [facility] Hydromorphone HCl (Hydromorphone Hcl 0.5 Mg/0.5 Ml Syringe) 0.25 mg IVPUSH Q4H PRN; Protocol PRN Reason: Pain, Severe (Pain Scale 7-10) Last Admin: 08/28/23 13:42 Dose: 0.25 mg Lactated Ringer's (Lr) 1,000 mls @ 100 mls/hr IVCONT .Q10H [facility] Last Admin: 08/28/23 12:49 Dose: 100 mls/hr Lisinopril (Lisinopril 40 Mg Tablet) 40 mg PO DAILY [facility]; Protocol Ondansetron HCl (Ondansetron Hcl 4 Mg/2 Ml Vial) 4 mg IVPUSH Q8H PRN PRN Reason: Nausea and Vomiting Oxycodone HCl (Oxycodone Hcl Immed Release 5 Mg Tablet) 5 mg PO Q4H PRN PRN Reason: Pain, Moderate(Pain Scale 4-6) Last Admin: 08/28/23 12:48 Dose: 5 mg Oxycodone HCl (Oxycodone Hcl Er 10 Mg Tab.Er.12h) 10 mg PO BID [facility] Last Admin: 08/28/23 12:48 Dose: 10 mg Sodium Chloride (0.9 % Sodium Chloride Flush 3 Ml Syringe) 3 ml IVFLUSH QSHIFT [facility] Triamcinolone Acetonide (Triamcinolone Acet 0.1 % Cream 15 Gm Tube) 1 appl TOPICAL DAILY PRN; Protocol PRN Reason: dermatitis Home Medications ?Medication ?Instructions ?Recorded ?Confirmed ?Last Taken ?Type tadalafil 20 mg tablet 20 mg PO BEDTIME PRN Erectile 08/23/21 08/20/23 Unknown History Dysfunction Physical Exam Vital Signs and Narrative: Vital Signs: Last Vital Signs Temp 98 F 08/28/23 12:35 Pulse 75 08/28/23 13:27 Resp 16 08/28/23 12:35 BP 159/80 H 08/28/23 13:27 Pulse Ox 91 L 08/28/23 13:27 O2 Del Method Room Air 08/28/23 12:35 BMI result Body Mass Index 47.7 Appearing in no acute distress head is normocephalic atraumatic eyes pupils are PERRLA sclera is anicteric mouth throat mucous membranes are intact and moist neck is supple no lymphadenopathy, no JVD noted lung sounds are clear to auscultation heart regular rate rhythm, clear S1, S2 positive bowel sounds, abdomen is soft, nontender neuro patient is alert x3, no focal deficits Left knee surgical dressing intact, surgical incision not visualized Results Labs 08/29/23 05:50 08/29/23 05:50 Labs: Laboratory Results - last 24 hr 08/28/23 10:36 MCV 81.2 MCH 27.6 MCHC 34.0 RDW 13.7 Plt Count 216 MPV 9.2 L Immature Gran % (Auto) 0.1 Neut % (Auto) 87.7 H Lymph % (Auto) 9.3 L Brown % (Auto) 1.6 L Eos % (Auto) 0.9 Baso % (Auto) 0.4 Lymph # (Auto) 0.6 L Brown # (Auto) 0.1 Eos # (Auto) 0.1 Baso # (Auto) 0.0 Abs Immat Gran (auto) 0.01 Absolute Neuts (auto) 6.1 Absolute Nucleated RBC 0.000 Nucleated RBC % (auto) 0.0 Imaging Radiologist's Impressions: Impressions Knee X-Ray 08/28/23 11:31 IMPRESSION: Satisfactory appearance of left knee replacement. Assessment and Plan (1) Status post total left knee replacement: Status: Acute Plan 62-year-old man admitted for left total knee arthroplasty Left total knee arthroplasty Management as per surgical team Pain management Hypertension Stable blood pressure Continue amlodipine, lisinopril Morbid obesity. BMI 47.7 Discussed importance of weight management as this may be contributing to worsening of other comorbidities DVT prophylaxis with full-dose aspirin Medical consultation complete. Will sign
[2023-08-28] MEDS: Docusate Sodium 100 MG CAPSULE PO (19:41)
[2023-08-28] MEDS: Celecoxib 200 MG CAPSULE PO (19:41)
[2023-08-28] MEDS: Calcium Carbonate 750 MG TAB.CHEW PO (21:28)
[2023-08-29] MEDS: HYDROmorphone HCl 0.5 MG/0.5 ML SYRINGE 0.25 MG IVPUSH ×3 (01:18→09:11)
[2023-08-29 02:33] VITALS: BP 155/79; PULSE 99; RESP 18; TEMP 36.6; O2SAT 93
[2023-08-29] MEDS: oxyCODONE HCl Immed Release 5 MG TABLET PO ×2 (03:03→12:32)
[2023-08-29] MEDS: Lactated Ringers 1,000 ML 100 ML IVCONT (05:25)
[2023-08-29 06:55] LABS: MANUAL DIFF FLAG NO
[2023-08-29 07:00] VITALS: BP 170/73; PULSE 93; RESP 18; TEMP 36.6; O2SAT 90
[2023-08-29 07:11] LABS: Basophils Percent Auto 0.1 % (0-2); Hemoglobin 15.3 g/dl (14.0-18.0); Imm Gran Abs Auto 0.03 X10*3/uL (0.00-0.03); Imm Gran Pct Auto 0.3 % (0.0-0.4); Lymphocytes Percent Auto 9.5 % (20-40); Mean Corpuscular Volume 82.4 fL (80.0-98.0); Mean Platelet Volume 9.9 fL (9.4-12.4); Monocytes Absolute Auto 0.9 X10*3/uL (0.1-1.2); Monocytes Percent Auto 8.1 % (2-11); Neutrophils Absolute Auto 8.8 x10*3/uL (2.0-8.3); Platelet Count 205 X10*3/uL (160-400); Red Blood Count 5.46 X10*6/uL (4.60-5.80); Red Cell Distribution Width 13.6 % (11.0-16.0); White Blood Count 10.7 X10*3/uL (4.8-10.8)
[2023-08-29 07:23] VITALS: BP 170/73; PULSE 93; O2SAT 90
[2023-08-29 07:27] LABS: Anion Gap 12 (12-20); Blood Urea Nitrogen 16 mg/dL (9-16); Calcium 9.3 mg/dL (8.4-10.2); Carbon Dioxide 23 mmol/L (22-29); Chloride 106 mmol/L (96-108); Creatinine Clr Calc Pharmacy 128.7; Estimated Glomerular Filt Rate > 60; Glucose Fasting 126 mg/dL (60-99); Potassium 4.8 mmol/L (3.3-5.1); Sodium 136 mmol/L (135-145)
[2023-08-29 07:39] VITALS: BP 170/73
[2023-08-29] MEDS: Celecoxib 200 MG CAPSULE PO (07:39)
[2023-08-29] MEDS: Docusate Sodium 100 MG CAPSULE PO (07:39)
[2023-08-29] MEDS: 0.9 % Sodium Chloride Flush 3 ML SYRINGE IVFLUSH (07:39)
[2023-08-29] MEDS: amLODIPine Besylate 10 MG TABLET PO (07:39)
[2023-08-29] MEDS: lisinopriL 40 MG TABLET PO (07:39)
[2023-08-29] MEDS: Aspirin 325 MG TABLET PO (07:39)
[2023-08-29] MEDS: oxyCODONE HCl ER 10 MG TAB.ER.12H PO (07:41)
--- NOTE | 2023-08-29 09:24 | P.DS_ITS ---
DS: Providers Provider Date of Service: 08/29/23 Date of admission: 08/28/23 05:59 Primary care physician: DELONTE Fried Consults: 08/28/23 12:18 Consult to Hospitalist Routine Comment: Consulting Provider: Hospitalist Reason For Exam: routine medical management DS: Diagnosis Discharge Diagnosis (1) Status post total left knee replacement: Status: Acute DS: Summary Hospital Course Hospital Course: The patient underwent a successful left total knee arthroplasty on 08/28/23, was transferred to PACU and then to the floor to recover. During their stay, their vitals were stable, Labs were unremarkable. POD 1 he was started on ASA 325 mg tabs for DVT ppx, they also received Physical Therapy services twice a day. Physical therapy should include gait training, ROM to tolerance and quad strength. He is WBAT. Prior to discharge, his dressing was changed, incision clean dry and intact, new Aquacel dressing applied. The Aquacel dressing should remain intact and dry at all times. Any concerns with the dressing, please contact orthopedic office. No showering. The plan is to be discharged home with vna services Time Attestation Discharge Coordination Time (in mins): 30 Quality: Safe Use of Opioids Does Pt have an Active Cancer Diagnosis on the Problem List?: No Quality: Stroke Does the patient have a stroke diagnosis?: No Physical Exam Vital Signs: Vital Signs: Last Vital Signs Temp 98 F 08/29/23 07:00 Pulse 93 08/29/23 07:23 Resp 18 08/29/23 07:00 BP 170/73 H 08/29/23 07:39 Pulse Ox 90 L 08/29/23 07:23 O2 Del Method Room Air 08/29/23 07:00 BMI result Body Mass Index 47.7 DS: Data Data Completed and Pending Completed studies during hospitalization [Text1]: Procedures Introduction of Anesthetic Agent into Peripheral Nerves and Plexi, Percutaneous Approach (04/23/23) Replacement of Right Knee Joint with Synthetic Substitute, Cemented, Open Approach (04/23/23) Pending studies at discharge: Pending at discharge 08/28/23 08:20 Surgical [PTH] Routine Labs on day of discharge: Laboratory Results - last 24 hr 08/28/23 08/29/23 10:36 05:50 WBC 6.9 10.7 RBC 5.58 5.46 Hgb 15.4 15.3 Hct 45.3 45.0 MCV 81.2 82.4 MCH 27.6 28.0 MCHC 34.0 34.0 RDW 13.7 13.6 Plt Count 216 205 MPV 9.2 L 9.9 Immature Gran % (Auto) 0.1 0.3 Neut % (Auto) 87.7 H 82.0 H Lymph % (Auto) 9.3 L 9.5 L Blair % (Auto) 1.6 L 8.1 Eos % (Auto) 0.9 0.0 Baso % (Auto) 0.4 0.1 Lymph # (Auto) 0.6 L 1.0 L Blair # (Auto) 0.1 0.9 Eos # (Auto) 0.1 0.0 Baso # (Auto) 0.0 0.0 Abs Immat Gran (auto) 0.01 0.03 Absolute Neuts (auto) 6.1 8.8 H Absolute Nucleated RBC 0.000 0.000 Nucleated RBC % (auto) 0.0 0.0 Sodium 136 Potassium 4.8 Chloride 106 Carbon Dioxide 23 Anion Gap 12 BUN 16 Creatinine 0.89 Estim Creat Clear Calc 128.7 Estimated GFR > 60 Fasting Glucose 126 H Calcium 9.3 Discharge Plan Discharge Anticipated Discharge Date/Time: 08/29/23 08:46 Patient Disposition: Home Health Service Discharge Diagnosis: LT TKA Referrals: Paul Bonilla, AUTO TRANSPORT DRIVER- [Primary Care Provider] - 1 Week Leah Ledbetter PA-C [Physician Electrostatic Paint Operator] - 2 Weeks (09/12/23 12:30 [facility] Leah Ledbetter PA-C) Discharge Medications: New celecoxib 200 mg Capsule 200 mg PO BID 30 Days Qty: 60 0RF acetaminophen 325 mg Tablet 650 mg PO Q6H PRN (Reason: Pain, Mild (Pain Scale 1-3)) 30 Days Qty: 240 0RF aspirin 325 mg Tablet 325 mg PO BID 42 Days Qty: 84 0RF docusate sodium 100 mg Capsule 100 mg PO BID 14 Days Qty: 28 0RF oxycodone 5 mg Tablet 5 mg PO Q4H PRN (Reason: Pain, Moderate(Pain Scale 4-6)) 7 Days Qty: 42 0RF Rx Instructions: Partial Fill upon patient request. Vick (PETRA) walker Misc See Rx Instructions .MEDSUPPLY Qty: 1 0RF Rx Instructions: Folding Front wheeled walker lisinopril 40 mg tablet 40 mg PO DAILY Qty: 90 1RF amlodipine 10 mg tablet 10 mg PO DAILY 90 Days Qty: 90 1RF triamcinolone acetonide 0.1 % cream 1 appl topical DAILY PRN (Reason: dermatitis) Qty: 80 4RF tadalafil 20 mg tablet 20 mg PO BEDTIME PRN (Reason: Erectile Dysfunction) Discontinued acetaminophen 325 mg Tablet 650 mg PO Q6H PRN (Reason: Pain, Mild (Pain Scale 1-3)) 30 Days Qty: 240 0RF aspirin 81 mg tablet,chewable 1 tab PO DAILY Discharge Orders: Discharge Order (Routine); Ordered 08/29/23 Ordered By: Leah Ledbetter Activity on Discharge: Use cane or walker Stand Alone Forms: Patient Portal Discharge page Print Language: Amharic Care Plan Goals: Restore function of joint Health Concerns: none Plan of Treatment: Physical Therapy Pain management DVT prophylaxis Assessment: Physical Therapy for Total knee arthroplasty: WBAT, gait training, ROM 0-12, quad strength * Limit stair climbing * No showering, no tub bath-keep dressing clean, dry and intact * No driving x6 weeks * Continue Aspirin twice a day x 6 weeks * Follow up with [facility] Orthopedics in 2 weeks:
--- NOTE | 2023-08-29 09:25 | P.F2F_ITS ---
Service Date Service Date: 08/29/23 Encounter Date of encounter: 08/29/23 Reasons for Services Signs and symptoms assessed: Weakness, poor balance, poor gait mechanics Reason for physical therapy: home safety and mobility, therapeutic exercises, restore joint function, gait/transfer training, ADL training and energy conservation Reason for occupational therapy: home safety and mobility, therapeutic exercises, restore joint function, gait/transfer training and energy conservation Homebound: Leaving the home is medically contraindicated at this time without the asist of a device and/or another person due th the listed conditions above and below. Reason homebound: pain with ambulation, poor balance / fall risk and unable to drive Homebound supporting statement: Pt. is considered home bound due to recent surgery. Unable to drive, poor balance, poor gait mechanics. Certification: Based on the above findings, I certify that this patient is confined to the home and needs intermittent senior care care, physical therapy and/or speech therapy, or continues to need occupational therapy. The patient is under my care, and I have initiated the establishment of the plan of care. The patient will be followed by a physician who will periodically review the plan of care. Time Spent With Patient Time: Total time managing care of this patient today ____ minutes.
--- NOTE | 2023-08-29 10:30 | MHC.CM.PN ---
IMM DELIVERED PT LIVES ALONE. 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 USES CANE/WALKER PRN FOR MOBILITY. +HCP PCP DR. ABDIFATAH GONZALEZ DP: PT HAS BEEN MEDICALLY CLEARED FOR DC HOME WITH NEW [facility] (FIRST CHOICE) FOR P.T. AND O.T. REFERRAL SENT. PT HAS OWN RIDE HOME.
--- NOTE | 2023-08-29 11:43 | HO.POSTANES ---
Post Anesthesia Evaluation Post Anesthesia Evaluation Date of Service: 08/28/23 Vital Signs: Vital Signs Temp Pulse Resp BP Pulse Ox O2 Del Method 08/29/23 07:39 170/73 H 08/29/23 07:23 93 170/73 H 90 L 08/29/23 07:00 98 F 93 18 170/73 H 90 L Room Air 08/29/23 02:33 98 F 99 18 155/79 H 93 Room Air Anesthesia: Spinal Mental Status: Awake Pain Control: Satisfactory Nausea/Vomiting: None Hydration: Adequate Anesthesia-Related Issues: No Anes. Related Issues
[2023-08-29] MEDS: Calcium Carbonate 750 MG TAB.CHEW PO (12:32)
--- NOTE | 2023-09-02 08:53 | W.PM.OPN ---
Operative Note Operative Note Date of Service: 08/28/23 Narrative: Date of Service: 08/28/23 Pre-op diagnosis: Left Knee OA Post-op diagnosis: same Procedure: Left TKA Implants: Plummer Triathlon 10/09/ps/35a cemented Surgeon: Morgan Blake MD Anesthesia: regional and spinal Was an Cullet Crusher And Washer used for this Procedure?: Yes Cullet Crusher And Washer: Maddi Jade Estimated blood loss (mL): 25 Tourniquet time (min): 75 IV fluids (mL): 1,000 Pathology: other Condition: stable Disposition: PACU Procedure in detail: The patient was brought to the operating room and prepped and draped in standard sterile fashion. A time-out was called to identify proper site proper procedure proper surgeon and IV antibiotics were administered. 1 g of IV tranexamic acid was administered. I began by making a midline incision to the retinaculum and performed a medial parapatellar arthrotomy. The patella was translated laterally and the knee was flexed up. There was loss of medial tibial bone and severe arthrosis. I performed a small medial peel and resected the infrapatellar fat pad. Bernardino's line was then used to drill my intramedullary femoral guide and my distal femur cut of 12 mm was made in 5 degrees of valgus while protecting the soft tissues. I then measured a #6 femur and placed my cutting guide and made my anterior posterior and chamfer cuts protecting the soft tissues at all times. I then made my box but removing the PCL. Once I was satisfied with my cuts I turned my attention to the tibia. I removed the meniscus medially and laterally and , using an external cutting guide, in line with the tibial crest and the third ray, I made my distal tibial cut in 0 deg slope of while protecting the posterior soft tissues at all times. An extension block was used to confirm appropriate amount of bony resection. I then sized a #6 tibia and once I was satisfied that there was complete tibial coverage I placed my trial and with the trial femur in place took the knee through range of motion. I was satisfied with the extension and flexion as well as the balance at 0, 30 and 90 degrees. I then turned my attention to the patella where I removed 1 cm from the undersurface of the patella and then trialed a 35a patellar button. Again the knee was taken through range of motion I was satisfied with the tracking. I then prepared the tibia with a drill and punch. A femoral bone plug was placed and the knee was irrigated copiously. Two bags of bone cement was prepared on the back table using third gen cementation technique. I then cemented the patella, tibia and femur in standard fashion. Axial compression and a clamp were used while the cement dried. Once the cement was hard on the back table all excess cement was removed and I trialed different inserts until I selected a #19ps insert. The final insert was placed and local TXA was administered. The knee was then closed with a running Quill suture, a 3 0 Vicryl and arthur on the skin. Patient was then placed in sterile dressing and brought to recovery room in stable condition there were no known complications.
== END 2023-08-29 13:21 | disposition home health service (06) | DRG 470 ==
LOC: HO.SSSA 06:04 → HO.S3 11:56
PROVIDERS: Physician Assistant; Admitting Provider Orthopaedic Surgery; PCP Nurse Practitioner Family; Visit Provider Orthopaedic Surgery
PROC: 0SRD0J9 Replacement of Left Knee Joint with Synthetic Substitute, Cemented, Open Approach (ICD-10-PCS; CPT 27447; principal; 2023-08-28 07:30)
DX: M17.12 Unilateral primary osteoarthritis, left knee (principal); Z68.42 Body mass index [BMI] 45.0-49.9, adult; G89.18 Other acute postprocedural pain; E66.01 Morbid (severe) obesity due to excess calories; I10 Essential (primary) hypertension; K21.9 Gastro-esophageal reflux disease without esophagitis; Z79.899 Other long term (current) drug therapy
CPT/HCPCS: 27447; 36415; 73560; 80048; 85025; 86850; 86900; 86901; 87640; 87641; 88304; 88311; 97110; 97116; 97162; C1713; C1776; J0131; J0665; J0690; J1100; J1170; J2250; J2371; J2405; J2704; J3010; J7120

== ENCOUNTER → 2023-08-28 05:59 | Outpatient (BNV) | payer OTHER, SELFPAY | PROVIDERS: Admitting Provider Orthopaedic Surgery; PCP Nurse Practitioner Family; Visit Provider Orthopaedic Surgery | DX: Z47.1 Aftercare following joint replacement surgery (principal); Z96.652 Presence of left artificial knee joint | CPT/HCPCS: 27447; 99024; G0180 ==

== ENCOUNTER → 2023-08-28 05:59 | Outpatient (BNV) | payer OTHER, SELFPAY | PROVIDERS: Admitting Provider Orthopaedic Surgery; PCP Nurse Practitioner Family; Visit Provider Nurse Practitioner Acute Care | DX: Z96.652 Presence of left artificial knee joint (principal) | CPT/HCPCS: 99221 ==

== ENCOUNTER 2023-09-12 12:12 | Outpatient (AMB) | payer OTHER, SELFPAY ==
--- NOTE | 2023-09-12 12:33 | A.OFFVIS_ITS ---
Intake Visit Reasons: PO LT TKA 08/28/23 NE Intake Note: Ralph a 62 year old male who presents today for a post operative left TKA, DOS 08/28/23 NE. Patient reports he is doing well, states his current pain level is 1 out of 10. States the he will begin outpatient therapy tomorrow. Allergies CLEAR TAPE Allergy (Unknown, Uncoded 09/12/23 12:39) RASH HPI HPI PO LT TKA 08/28/23 NE: Details: 62-year-old male who returns to the office today for post-op left TKA, 08/28/[address] Blake. He states he his current pain level is 1 on the scale of 0-10. He will begin outpatient therapy tomorrow. He is doing well overall and has no concerns today. [facility] Medical History Osteoarthritis of right knee Eczema HTN (hypertension) GERD (gastroesophageal reflux disease) Sleep apnea Morbid obesity Hx of diverticulitis of colon Surgical History S/P total knee arthroplasty H/O colonoscopy History of colon resection Hx of hernia repair Family History Father Hypertension CVD (cardiovascular disease) Mother Hypertension Social History Household Members: None Household Members Other:: sister Housing: House Are you a primary career coach to a significant other at home: No Do you presently have visiting nurse or other home services: No Unable to assess alcohol history related to: Unknown Alcohol intake: current Alcohol intake frequency: holidays/special occasions only Comment: COUNTS CORRECT Patient Tobacco Use Status: Never used Tobacco e-Cigarette/Vaping Use: Never Used Second Hand Smoke Exposure: No Substance Use Type: Marijuana service: No Current occupational status: retired and disabled Cognitive needs: No Hearing needs: No Vision needs: No Review of Systems Const All systems reviewed & are unremarkable except as noted in HPI and below Physical Exam Extrem Other: Left knee: Incision clean, dry and intact. No erythema or drainage around incision. He does have swelling and edema over the LLE with tenderness along the medial aspect of calf. Negative Coronado?s. Assessment & Plan Assessment & Plan (1) Status post total left knee replacement: Code(s): Z96.652 - Presence of left artificial knee joint Category: Surgical (2) Edema: Code(s): R60.9 - Edema, unspecified Category: Medical Plan Pardeep removed, steri strips applied. He will begin to transition to Outpatient PT to continue working on Gait training, ROM and quad strength. No driving for another 4 weeks. He will require ppx abx for dental procedures. He will f/u in 4 weeks, sooner if needed. An order for stat US of the LLE was also ordered in the office today. Orders: Orders US venous duplex LE LT Today R60.9 - Edema, unspecified Patient Instructions: Scribed for Leah Ledbetter PA-C, by Arnie Lubin medical research associate, on 09/12/2023 at 12:30 PM EST. I, Leah Ledbetter PA-C, have personally reviewed and agree with the information entered by the scribe. Coding Level of Care Code Global (54444) Diagnoses Status post total left knee replacement Z96.652 Edema R60.9
== END 2023-09-12 13:22 | disposition home or self-care (01) ==
PROVIDERS: PCP Nurse Practitioner Family; Visit Provider Physician Assistant
DX: Z96.652 Presence of left artificial knee joint (principal); R60.9 Edema, unspecified
CPT/HCPCS: 99024

== ENCOUNTER 2023-09-12 12:12 | Outpatient (REF) | payer OTHER, SELFPAY ==
--- NOTE | ~2023-09-12 | US_ITS ---
EXAMINATION: US VENOUS ULTRASOUND WITH DOPPLER LOWER EXTREMITY, LEFT CLINICAL INFORMATION: Edema COMPARISON: None available. TECHNIQUE: Ultrasound of the deep veins is performed from the hip to the calf with compression sonography and color and pulse Doppler assessment. Spectral analysis with color-flow imaging is performed. FINDINGS: There is normal venous compression and respiratory variation and augmented flow. The visualized common femoral vein, superficial femoral vein, profunda femoral vein, popliteal vein, and the trifurcation region shows no evidence of deep venous thrombosis. There is no significant popliteal fossa cyst. If the patient's symptoms persist, followup ultrasound in 5 days 7 days might be of value to exclude proximal propagation from a non-visualized calf vein. US/US venous duplex LE LT IMPRESSION: No DVT demonstrated in the left lower extremity.
== END 2023-09-12 12:13 | disposition home or self-care (01) ==
LOC: HO.US 12:12
PROVIDERS: PCP Nurse Practitioner Family; Visit Provider Physician Assistant
DX: R60.0 Localized edema (principal)
CPT/HCPCS: 93971; 99212

== ENCOUNTER 2023-10-04 10:00 | Outpatient (RCR) | payer OTHER, SELFPAY ==
--- NOTE | 2023-09-13 10:37 | MHC.PT.EP ---
[facility] [place] Office [place] Office [place] Office [address] Keyana Harden [address] [phone] F: [phone] F: [phone] F: [phone] F: [phone] Physical Therapy Plan of Care Date of Evaluation: 09/13/23 Date of Surgery: 08/28/23 Diagnosis: L TKA Assessment: Patient is a 62 year old R handed male who presents with s/s consistent with L TKA on 08/28/23. He does not work but does enjoy staying active and wants to be able to increase his activity level. Patient past medical history includes GERD, HTN and R TKA on 04/22/23. Current impairments include pain, balance, ROM, strength, activity tolerance and functional mobility. Functional limitations include decreased ability to stand and walk longer periods of time, get in and out of cars and lower seats, and negotiate stairs. Patient is motivated with good rehab potential. Skilled PT will address impairments and functional limitations in order to achieve goals. Frequency and Duration: The patient will be seen 2x/week for 5 weeks Short Term Goals: I with HEP -2 weeks AROM 0-120 - 3 weeks Symmetrical pattern with amb and stairs (no AD) - 3 weeks Retirement Goals: LEFS 60/80 - 5 weeks STrength 4+/5 grossly - 5 weeks Normal gastroc and HS flex - 5 weeks Pain free return to daily activities - 5 weeks Treatment Plan: Modalities to reduce pain, spasms and effusion. Manual therapy to restore motion and function. Therapeutic exercise to improve strength and flexibility. Neuromuscular re-education for posture and balance. Therapeutic activities to return to functional activities of daily living. Electronically signed by: Joss Metz, PT Please sign and return to therapist. Thank you for your referral.
--- NOTE | 2024-01-01 10:59 | MHC.PT.DC ---
[facility] [place] Office [place] Office [place] Office [address] Keyana Harden [address] [phone] F: [phone] F: [phone] F: [phone] F: [phone] Physical Therapy Discharge Report Diagnosis: L TKA Date of Surgery: 08/28/23 Date of Evaluation: 09/13/23 Date of Discharge: 10/13/23 Treatments to Date: 4 Cancellations to Date: No Shows to Date: Discharge Status: Independent with HEP Discharge Summary: 10/01/23: AROM flexion to 120. AAROM flexion to 124. continue to progress as tolerated. 09/23/23: pt progressing well with skilled PT. progressed balance and strength today. no adverse reactions. 09/18/23: pt progressing well with skilled PT. no adverse reactions from above program. progress ROM, strength and function while managing swelling as pt still has significant edema. Patient is a 62 year old R handed male who presents with s/s consistent with L TKA on 08/28/23. He does not work but does enjoy staying active and wants to be able to increase his activity level. Patient past medical history includes GERD, HTN and R TKA on 04/22/23. Current impairments include pain, balance, ROM, strength, activity tolerance and functional mobility. Functional limitations include decreased ability to stand and walk longer periods of time, get in and out of cars and lower seats, and negotiate stairs. Patient is motivated with good rehab potential. Skilled PT will address impairments and functional limitations in order to achieve goals. Electronically signed by: Joss Metz, PT Please sign and return to therapist. Thank you for your referral.
== END 2024-01-09 09:11 | disposition home or self-care (01) ==
LOC: HO.PTCHIC 10:00
PROVIDERS: PCP Nurse Practitioner Family; Visit Provider Physician Assistant
DX: Z47.1 Aftercare following joint replacement surgery (principal); Z96.652 Presence of left artificial knee joint
CPT/HCPCS: 97110; 97112; 97162

== ENCOUNTER 2023-10-07 12:01 | Outpatient (AMB) | payer OTHER, SELFPAY ==
--- NOTE | 2023-10-07 12:15 | MHC.OFFVIS ---
Intake Visit Reasons: PO 6 week LT TKA 08/27/23 NE Intake Note: Ralph is a 62 year old male who presents today for a post operative appointment s/p left TKA, DOS 08/28/23 NE. Allergies CLEAR TAPE Allergy (Unknown, Uncoded 09/12/23 12:39) RASH HPI HPI PO 6 week LT TKA 08/27/23 NE: Details: 6 weeks post op doing well He has no complaints He is walking well PFSH Medical History Osteoarthritis of right knee Eczema HTN (hypertension) GERD (gastroesophageal reflux disease) Sleep apnea Morbid obesity Hx of diverticulitis of colon Surgical History S/P total knee arthroplasty H/O colonoscopy History of colon resection Hx of hernia repair Family History Father Hypertension CVD (cardiovascular disease) Mother Hypertension Social History Household Members: None Household Members Other:: sister Housing: House Are you a primary point of care specialist to a significant other at home: No Do you presently have visiting nurse or other home services: No Unable to assess alcohol history related to: Unknown Alcohol intake: current Alcohol intake frequency: holidays/special occasions only Comment: COUNTS CORRECT Patient Tobacco Use Status: Never used Tobacco e-Cigarette/Vaping Use: Never Used Second Hand Smoke Exposure: No Substance Use Type: Marijuana service: No Current occupational status: retired and disabled Cognitive needs: No Hearing needs: No Vision needs: No Physical Exam Extrem Other: inc c/d/i 0-125 Assessment & Plan Assessment & Plan (1) Status post total left knee replacement: Code(s): Z96.652 - Presence of left artificial knee joint Category: Surgical Plan: Doing well Continue strengthening and activity as tolerated f/u 6 weeks Coding Level of Care Code Global (88251) Diagnoses Status post total left knee replacement Z96.652
== END 2023-10-07 12:39 | disposition home or self-care (01) ==
PROVIDERS: PCP Nurse Practitioner Family; Visit Provider Orthopaedic Surgery
DX: Z96.652 Presence of left artificial knee joint (principal)
CPT/HCPCS: 99024

== ENCOUNTER → 2023-10-07 12:01 | Outpatient (BNVA) | payer OTHER, SELFPAY | PROVIDERS: PCP Nurse Practitioner Family; Visit Provider Orthopaedic Surgery | DX: Z96.652 Presence of left artificial knee joint (principal) | CPT/HCPCS: 99212 ==

== ENCOUNTER 2023-10-25 11:36 | Outpatient (AMB) | payer OTHER, SELFPAY ==
[2023-10-25 11:40] VITALS: BP 142/64; PULSE 96; TEMP 36.4; O2SAT 92; BMI 47.0
--- NOTE | 2023-10-25 11:40 | AM.OFFWIN_ITS ---
Intake Vital Signs 10/25/23 11:40 Height 5 ft 11 in Weight 337 lb BMI 47.0 BP 142/64 H Blood Pressure Location Lt brachial Position Sitting Pulse 96 Pulse Source Pulse Oximeter Temp 97.5 F Temp Source Temporal Artery Scan Pulse Oximetry (%) 92 Oxygen Delivery Method Room Air Intake Visit Reasons: EP- Blood Pressure Check Intake Note: pt is here today for blood pressure check Patient Tobacco Use Status: Never used Tobacco Allergies CLEAR TAPE Allergy (Unknown, Uncoded 10/25/23 11:45) RASH Medication List - Last Reconciled 10/25/23 by Avis Ivory MD acetaminophen 650 mg (2 x 325 mg) PO Q6H PRN 30 days amlodipine 10 mg PO DAILY 90 days aspirin 325 mg PO BID 42 days celecoxib 200 mg PO BID 30 days docusate sodium 100 mg PO BID 14 days lisinopril 40 mg PO DAILY oxycodone 5 mg PO Q4H PRN 7 days tadalafil 20 mg PO BEDTIME PRN triamcinolone acetonide 0.1% 1 appl topical DAILY PRN walker Folding Front wheeled walker Do you need a note to return to daycare/school/sports/work: No HPI EP- Blood Pressure Check HPI Details Patient is 62 year gentleman came in today to have his blood pressure check and medication refilled Patient says that his blood pressure has been running around 120s to 130s systolic He was last seen August by his PCP Labs were done at that visit as well Is on amlodipine 10 mg and lisinopril 40 mg Patient is tolerating medications no side effects Review system revealed no headache no dizziness no chest pain no shortness a breath no nausea no vomiting no diarrhea no abdominal pain. Medication refill sent [facility] Medical History Osteoarthritis of right knee Eczema HTN (hypertension) GERD (gastroesophageal reflux disease) Sleep apnea Morbid obesity Hx of diverticulitis of colon Surgical History S/P total knee arthroplasty H/O colonoscopy History of colon resection Hx of hernia repair Family History Father Hypertension CVD (cardiovascular disease) Mother Hypertension Social History Household Members: None Household Members Other:: sister Housing: House Are you a primary child care counselor to a significant other at home: No Do you presently have visiting nurse or other home services: No Unable to assess alcohol history related to: Unknown Alcohol intake: current Alcohol intake frequency: holidays/special occasions only Comment: COUNTS CORRECT Patient Tobacco Use Status: Never used Tobacco e-Cigarette/Vaping Use: Never Used Second Hand Smoke Exposure: No Substance Use Type: Marijuana service: No Current occupational status: retired and disabled Cognitive needs: No Hearing needs: No Vision needs: No Review of Systems Const All systems reviewed & are unremarkable except as noted in HPI and below Physical Exam Vital Signs: Last Vital Signs Temp 97.5 F 10/25/23 11:40 Pulse 96 10/25/23 11:40 BP 142/64 H 10/25/23 11:40 Pulse Ox 92 10/25/23 11:40 Oxygen Delivery Method Room Air 10/25/23 11:40 BMI result Body Mass Index 47.0 Const General: no acute distress Orientation/consciousness: patient oriented x3 Eyes General: appearance normal, both eyes and all related structures Resp Effort & Inspection: normal respiratory effort and able to speak in complete sentences Auscultation: clear to auscultation bilaterally Cardio Other: S1 S2 Neuro General: patient oriented x3 Psych Mental Status: mental status grossly normal Assessment & Plan Assessment & Plan (1) Essential (primary) hypertension: Code(s): I10 - Essential (primary) hypertension Plan Patient is 62 year gentleman came in today to have his blood pressure check and medication refilled Patient says that his blood pressure has been running around 120s to 130s systolic He was last seen August by his PCP Labs were done at that visit as well Is on amlodipine 10 mg and lisinopril 40 mg Patient is tolerating medications no side effects Review system revealed no headache no dizziness no chest pain no shortness a breath no nausea no vomiting no diarrhea no abdominal pain. Medication refill sent Medications: Refilled amlodipine 10 mg PO DAILY 90 days 90 tabs 0RF I10 - Essential (primary) hypertension lisinopril 40 mg PO DAILY 90 tabs 0RF I10 - Essential (primary) hypertension Coding Level of Care Code Est Pt Level 3 (00276) Diagnoses Essential (primary) hypertension I10
== END 2023-10-25 12:51 | disposition home or self-care (01) ==
PROVIDERS: PCP Nurse Practitioner Family; Visit Provider Internal Medicine
DX: I10 Essential (primary) hypertension (principal)
CPT/HCPCS: 99213

== ENCOUNTER 2024-01-31 12:09 | Outpatient (AMB) | payer OTHER, SELFPAY ==
--- NOTE | 2024-01-31 12:10 | MHC.OFFVIS ---
Vital Signs 01/31/24 12:11 Height 5 ft 11 in Weight 337 lb BMI 47.0 Intake Visit Reasons: OV bilat knee pain Intake Note: Ralph is a 63 year old male who presents today for a follow up of bilateral knee pain, he is s/p Left TKA 08/28/23 & Right TKA 04/23/23. Patient reports that he is doing well. Allergies CLEAR TAPE Allergy (Unknown, Uncoded 01/31/24 12:12) RASH HPI HPI OV bilat knee pain: Details: Can is status post bilateral knee replacements. He actually feels great. He is walking and has been engaging in activities that he has not been able to do without pain for years. He is extremely happy with his knee replacements. [facility] Medical History Osteoarthritis of right knee Eczema HTN (hypertension) GERD (gastroesophageal reflux disease) Sleep apnea Morbid obesity Hx of diverticulitis of colon Surgical History S/P total knee arthroplasty H/O colonoscopy History of colon resection Hx of hernia repair Family History Father Hypertension CVD (cardiovascular disease) Mother Hypertension Social History Household Members: None Household Members Other:: sister Housing: House Are you a primary landcare officer to a significant other at home: No Do you presently have visiting nurse or other home services: No Unable to assess alcohol history related to: Unknown Alcohol intake: current Alcohol intake frequency: holidays/special occasions only Comment: COUNTS CORRECT Patient Tobacco Use Status: Never used Tobacco e-Cigarette/Vaping Use: Never Used Second Hand Smoke Exposure: No Substance Use Type: Marijuana service: No Current occupational status: retired and disabled Cognitive needs: No Hearing needs: No Vision needs: No Physical Exam Vital Signs: BMI result Body Mass Index 47.0 Extrem Other: inc c/d/i 0-125 Assessment & Plan Assessment & Plan (1) Status post total knee replacement, right: Comment: 04/23/2023 Dr. Morgan Blake Code(s): Z96.651 - Presence of right artificial knee joint Category: Surgical Plan: Right knee is doing very well. Full range of motion. Stable arc of motion. No pain with ambulation or on physical exam. (2) Status post total left knee replacement: Code(s): Z96.652 - Presence of left artificial knee joint Category: Surgical Plan: Left knee is doing very well. Full range of motion. Stable arc of motion. No pain with ambulation or on physical exam. Coding Level of Care Code Est Pt Level 3 (07395) Diagnoses Status post total knee replacement, right Z96.651 Status post total left knee replacement Z96.652
[2024-01-31 12:11] VITALS: BMI 47.0
== END 2024-01-31 13:16 | disposition home or self-care (01) ==
PROVIDERS: PCP Nurse Practitioner Family; Visit Provider Orthopaedic Surgery
DX: Z47.1 Aftercare following joint replacement surgery (principal); Z96.653 Presence of artificial knee joint, bilateral
CPT/HCPCS: 99212

== ENCOUNTER → 2024-01-31 12:09 | Outpatient (BNVA) | payer OTHER, SELFPAY | PROVIDERS: PCP Nurse Practitioner Family; Visit Provider Orthopaedic Surgery | DX: Z96.651 Presence of right artificial knee joint (principal); Z96.652 Presence of left artificial knee joint | CPT/HCPCS: 99212 ==

== ENCOUNTER 2024-05-22 06:11 | Outpatient (REF) | payer OTHER, SELFPAY ==
[2024-05-22 10:17] LABS: MANUAL DIFF FLAG NO
[2024-05-22 10:24] LABS: Appearance Urine Clear; Color Urine Yellow; Glucose Urine UA Negative (Negative); Leukocyte Esterase Urine Negative (Negative); Nitrite Urine Negative (Negative); PH 5.5 (5.0-9.0); UMIC TRIGGER UACC YES; Urine Blood Negative (Negative); Urine Ketones Negative (Negative); Urine Protein 30 (1+) mg/dL (Neg-Trace)
[2024-05-22 10:25] LABS: Basophils Absolute Auto 0.1 X10*3/uL (0.0-0.2); Eosinophils Absolute Auto 0.3 X10*3/uL (0.0-0.4); Eosinophils Percent Auto 5.8 % (0-4); Hematocrit 48.9 % (42.0-52.0); Hemoglobin 16.8 g/dl (14.0-18.0); Imm Gran Abs Auto 0.01 X10*3/uL (0.00-0.03); Imm Gran Pct Auto 0.2 % (0.0-0.4); Lymphocytes Absolute Auto 1.1 X10*3/uL (1.2-4.9); Lymphocytes Percent Auto 21.9 % (20-40); Mean Corpuscular HGB Conc 34.4 g/dl (31.0-36.0); Mean Corpuscular Hemoglobin 28.4 pg (27.0-33.0); Mean Corpuscular Volume 82.7 fL (80.0-98.0); Mean Platelet Volume 10.2 fL (9.4-12.4); Monocytes Absolute Auto 0.5 X10*3/uL (0.1-1.2); Monocytes Percent Auto 10.4 % (2-11); Neutrophils Absolute Auto 3.1 x10*3/uL (2.0-8.3); Neutrophils Percent Auto 60.7 % (45-73); Platelet Count 176 X10*3/uL (160-400); Red Blood Count 5.91 X10*6/uL (4.60-5.80); Red Cell Distribution Width 14.4 % (11.0-16.0)
[2024-05-22 10:29] LABS: Bacteria Urine None Seen (None Seen); Hyaline Casts Urine 0-2 /LPF (0-2); RBC Urine 0-2 /HPF (0-2); Squamous Epithelial Cell Urine 0-2 /HPF (0-2); WBC Urine 0-5 /HPF (0-5)
[2024-05-22 10:51] LABS: Alanine Aminotransferase 24 U/L (0-40); Albumin Level 4.2 g/dL (3.5-5.0); Alkaline Phosphatase 79 U/L (39-117); Anion Gap 9 (12-20); Aspartate Amino Transferase 21 U/L (5-37); Bilirubin Total 0.5 mg/dL (0.0-1.0); Blood Urea Nitrogen 17 mg/dL (9-16); Calcium 8.7 mg/dL (8.4-10.2); Carbon Dioxide 25 mmol/L (22-29); Chloride 110 mmol/L (96-108); Cholesterol 176 mg/dL (<200); Estimated Glomerular Filt Rate > 60; Glucose Fasting 94 mg/dL (60-99); HDL Cholesterol 32 mg/dL (>40); LDL Cholesterol Calculated 125 mg/dL (<100); Potassium 4.2 mmol/L (3.3-5.1); Sodium 140 mmol/L (135-145); Total Protein 7.9 g/dL (6.5-8.0); Triglycerides 97 mg/dL (<150)
[2024-05-22 10:55] LABS: TSH reflex Free T4 3.02 uIU/mL (0.32-4.0)
[2024-05-22 10:57] LABS: Syphilis Screen Nonreactive (Nonreactive)
[2024-05-22 10:58] LABS: HBS Num1 4.17 mIU/mL (0-7.99); HBc Num1 0.12 S/CO (0.00-0.79); HBsAGNum1 0.42 S/CO (0.00-0.99); HIV AB/AG Nonreactive (Nonreactive); HIV Num 1 0.06 S/CO (0.00-0.99); Hepatitis A Antibody IgM 0.16 Index (0-0.79); Hepatitis B Core Antibody Nonreactive (Nonreactive); Hepatitis B Surface Antigen Negative (Negative); ~HepC Num1 0.11 S/CO (0.00-0.79); ~Hepatitis A Antibody IgM Nonreactive (Nonreactive); ~Hepatitis B Surface Antibody NONREACTIVE (Nonreactive); ~Hepatitis C Antibody Nonreactive (Nonreactive)
[2024-05-22 12:16] LABS: CT PCR NOT DETECTED (Not Detect.); NG PCR NOT DETECTED (Not Detect.)
== END 2024-05-22 06:12 | disposition home or self-care (01) ==
LOC: HO.HMGCLDS 06:11
PROVIDERS: PCP Nurse Practitioner Family; Visit Provider Nurse Practitioner Family
DX: Z11.3 Encounter for screening for infections with a predominantly sexual mode of transmission (principal); R60.9 Edema, unspecified; G47.30 Sleep apnea, unspecified; E66.01 Morbid (severe) obesity due to excess calories; R97.20 Elevated prostate specific antigen [PSA]; Z12.5 Encounter for screening for malignant neoplasm of prostate
CPT/HCPCS: 80053; 80061; 81001; 84153; 84443; 85025; 86704; 86706; 86709; 86780; 86803; 87340; 87389; 87491; 87591

== ENCOUNTER 2024-06-04 11:30 | Outpatient (AMB) | payer OTHER, SELFPAY ==
[2024-06-04 11:38] VITALS: BP 150/80; PULSE 86; O2SAT 95; BMI 48.4
--- NOTE | 2024-06-04 11:38 | HO.NEPHOV ---
Vital Signs 06/04/24 11:38 06/04/24 11:57 Height 5 ft 11 in Weight 347 lb BMI 48.4 BP 150/80 H 134/80 Blood Pressure Location Lt brachial Lt brachial Position Sitting Sitting Pulse 86 Pulse Source Pulse Oximeter Pulse Oximetry (%) 95 Oxygen Delivery Method Room Air Intake Visit Reasons: INP: Proteinuria/ Conf Inside Sales Lead Required: No Accompanied by: Self / Same As Patient Allergies CLEAR TAPE Allergy (Unknown, Uncoded 01/31/24 12:12) RASH Medication List - Last Reconciled 06/04/24 by Jose Elias Elizabeth MD acetaminophen 650 mg (2 x 325 mg) PO Q6H PRN 30 days amlodipine 10 mg PO DAILY 90 days aspirin 81 mg PO DAILY lisinopril 40 mg PO DAILY tadalafil 20 mg PO BEDTIME PRN triamcinolone acetonide 0.1% 1 appl topical DAILY PRN walker Folding Front wheeled walker HPI Comments Details: Ralph is a pleasant 63-year-old man with obesity and hypertension referred for proteinuria. He had dipstick positive proteinuria. Renal function is normal with a creatinine of 0.86 mg/dL. He has had hypertension for several years. Initially blood pressure was suboptimal. Recent readings are acceptable. He has a history of significant obesity. Weight has been stable around 50 lb. History of osteoarthritis status post bilateral knee replacement. No history of smoking cigarette or alcohol abuse. He is retired ,lives alone. Past medical history significant for laparotomy. He had diverticulosis followed by ileostomy bag. This was later complicated by he ventral hernia and status post herniorrhaphy with mesh. placement and removal PFSH Medical History Osteoarthritis of right knee Eczema HTN (hypertension) GERD (gastroesophageal reflux disease) Sleep apnea Morbid obesity Hx of diverticulitis of colon Surgical History S/P total knee arthroplasty H/O colonoscopy History of colon resection Hx of hernia repair Family History Father Hypertension CVD (cardiovascular disease) Mother Hypertension Social History Household Members: None Household Members Other:: sister Housing: House Are you a primary day care worker to a significant other at home: No Do you presently have visiting nurse or other home services: No Unable to assess alcohol history related to: Unknown Alcohol intake: current Alcohol intake frequency: holidays/special occasions only Comment: COUNTS CORRECT Patient Tobacco Use Status: Never used Tobacco e-Cigarette/Vaping Use: Never Used Second Hand Smoke Exposure: No Substance Use Type: Marijuana service: No Current occupational status: retired and disabled Cognitive needs: No Hearing needs: No Vision needs: No Review of Systems Const Denies fever(s) and Denies weight loss Card Denies chest pain Resp Denies cough and Denies hemoptysis GI Denies abdominal pain, Denies diarrhea and Denies nausea Musc Denies back pain Neuro Denies focal weakness Physical Exam Vital Signs: Last Vital Signs Pulse 86 06/04/24 11:38 BP 134/80 06/04/24 11:57 Pulse Ox 95 06/04/24 11:38 Oxygen Delivery Method Room Air 06/04/24 11:38 BMI result Body Mass Index 48.4 Comfortable Obese Neck supple no JVD. Lungs entry equal no rales. Heart S1-S2 heard no gallop or rub. Abdomen soft nontender. Multiple scars from previous surgery Neuro alert awake oriented. No asterixis. Extremities no edema. Results Reviewed Nephrology Results: Hgb 16.8 g/dl (14.0-18.0) 05/22/24 WBC 5.0 X10*3/uL (4.8-10.8) 05/22/24 Plt Count 176 X10*3/uL (160-400) 05/22/24 Sodium 140 mmol/L (135-145) 05/22/24 Potassium 4.2 mmol/L (3.3-5.1) 05/22/24 Chloride 110 mmol/L (96-108) H 05/22/24 Carbon Dioxide 25 mmol/L (22-29) 05/22/24 BUN 17 mg/dL (9-16) H 05/22/24 Creatinine 0.86 mg/dL (0.5-1.4) 05/22/24 Calcium 8.7 mg/dL (8.4-10.2) 05/22/24 Urine Protein 30 (1+) mg/dL (Neg-Trace) H 05/22/24 Assessment & Plan Assessment & Plan (1) Proteinuria: Code(s): R80.9 - Proteinuria, unspecified Category: Medical (2) Essential (primary) hypertension: Code(s): I10 - Essential (primary) hypertension Category: Medical (3) Morbid obesity: Code(s): E66.01 - Morbid (severe) obesity due to excess calories Category: Medical Plan 59-year-old man with obesity and hypertension with proteinuria by dipstick. Both obesity and hypertension could be contributing to the proteinuria. First step is to quantify her proteinuria. I have initiated a workup as outlined below. Blood pressure is acceptable at this time. Encouraged him to stand low-sodium diet He will definitely benefit from weight loss. Encouraged him to increase physical activities. At this point renal function stable. Further workup will be determined by the outcome of the baseline investigations. Orders: Orders Creatinine Urine Today R80.9 - Proteinuria, unspecified UA and rflx microscopic Today R80.9 - Proteinuria, unspecified Total Protein Urine Random Today R80.9 - Proteinuria, unspecified TAMMY Reflex Titer and Pattern Today R80.9 - Proteinuria, unspecified Protein Electrophoresis, Serum Today R80.9 - Proteinuria, unspecified US renal BI Today R80.9 - Proteinuria, unspecified Coding Level of Care Code New Pt Level 4 (11054) Diagnoses Proteinuria R80.9 Essential (primary) hypertension I10 Morbid obesity E66.01
[2024-06-04 11:57] VITALS: BP 134/80
== END 2024-06-04 12:04 | disposition home or self-care (01) ==
PROVIDERS: PCP Nurse Practitioner Family; Referring Provider Nurse Practitioner Family; Visit Provider Internal Medicine Hypertension Specialist
DX: R80.9 Proteinuria, unspecified (principal); I10 Essential (primary) hypertension; E66.01 Morbid (severe) obesity due to excess calories
CPT/HCPCS: 99204

== ENCOUNTER → 2024-06-04 11:30 | Outpatient (BNVA) | payer OTHER, SELFPAY | PROVIDERS: PCP Nurse Practitioner Family; Referring Provider Nurse Practitioner Family; Visit Provider Internal Medicine Hypertension Specialist | DX: R80.9 Proteinuria, unspecified (principal); E66.9 Obesity, unspecified; E66.01 Morbid (severe) obesity due to excess calories; I10 Essential (primary) hypertension; Z68.42 Body mass index [BMI] 45.0-49.9, adult | CPT/HCPCS: 99202 ==

== ENCOUNTER 2024-06-16 11:18 | Outpatient (REF) | payer OTHER, SELFPAY ==
[2024-06-16 13:32] LABS: Appearance Urine Clear; Color Urine Yellow; Glucose Urine UA Negative (Negative); Leukocyte Esterase Urine Negative (Negative); Nitrite Urine Negative (Negative); Specific Gravity - Urine 1.015 (1.005-1.025); UMIC TRIGGER UA YES; Urine Blood Negative (Negative); Urine Ketones Negative (Negative); Urine Protein 30 (1+) mg/dL (Neg-Trace)
[2024-06-16 13:35] LABS: Bacteria Urine None Seen (None Seen); Hyaline Casts Urine 0-2 /LPF (0-2); RBC Urine 0-2 /HPF (0-2); Squamous Epithelial Cell Urine 0-2 /HPF (0-2); WBC Urine 0-5 /HPF (0-5)
[2024-06-16 14:03] LABS: Creatinine Urine 64.45 mg/dL; Total Protein Urine Random 39 mg/dL (<12)
[2024-06-21 08:49] LABS: Anti Nuclear Antibody Screen NEGATIVE (NEGATIVE)
[2024-06-22 22:08] LABS: Prot Elec - Albumin 4.4 g/dL (3.8-4.8); Prot Elec - Alpha1 0.2 g/dL (0.2-0.3); Prot Elec - Alpha2 0.8 g/dL (0.5-0.9); Prot Elec - Beta 1 0.5 g/dL (0.4-0.6); Prot Elec - Beta 2 0.5 g/dL (0.2-0.5); Prot Elec - Total Protein 7.4 g/dL (6.1-8.1)
== END 2024-06-16 11:19 | disposition home or self-care (01) ==
LOC: HO.HMGCLDS 11:18
PROVIDERS: PCP Nurse Practitioner Family; Visit Provider Internal Medicine Hypertension Specialist
DX: R80.9 Proteinuria, unspecified (principal)
CPT/HCPCS: 36415; 81001; 82570; 84156; 84165; 86038

== ENCOUNTER 2024-06-17 15:07 | Outpatient (REF) | payer OTHER, SELFPAY ==
--- NOTE | ~2024-06-17 | US_ITS ---
CLINICAL HISTORY: R80.9 - Proteinuria, unspecified US Renal Comparison: None Findings: Right kidney normal size and echotexture, 12 cm length. Left kidney normal size and echotexture, 12 cm length. No hydronephrosis of either kidney. Normal color Doppler IMPRESSION: 1. Normal kidneys. This document has been electronically signed by: Temo Fierro MD on 06/18/2024 14:00:11
== END 2024-06-17 15:08 | disposition home or self-care (01) ==
LOC: HO.US 15:07
PROVIDERS: PCP Nurse Practitioner Family; Visit Provider Internal Medicine Hypertension Specialist
DX: R80.9 Proteinuria, unspecified (principal)
CPT/HCPCS: 76775

== ENCOUNTER → 2024-06-17 15:08 | Outpatient (BNV) | payer OTHER, SELFPAY | PROVIDERS: PCP Nurse Practitioner Family; Visit Provider Nuclear Medicine | DX: R80.9 Proteinuria, unspecified (principal) | CPT/HCPCS: 76775 ==

== ENCOUNTER 2024-07-02 10:37 | Outpatient (AMB) | payer OTHER, SELFPAY ==
[2024-07-02 10:59] VITALS: BP 152/78; PULSE 90; O2SAT 95; BMI 48.3
--- NOTE | 2024-07-02 10:59 | HO.NEPHOV_ITS ---
Vital Signs 07/02/24 10:59 07/02/24 11:12 Height 5 ft 11 in Weight 346 lb BMI 48.3 BP 152/78 H 130/70 Blood Pressure Location Lt brachial Lt brachial Position Sitting Sitting Pulse 90 Pulse Source Pulse Oximeter Pulse Oximetry (%) 95 Oxygen Delivery Method Room Air Intake Visit Reasons: 4wk follow-up w/labs/ Conf Security Intelligence Analyst Required: No Accompanied by: Self / Same As Patient Allergies CLEAR TAPE Allergy (Unknown, Uncoded 01/31/24 12:12) RASH Medication List - Last Reconciled 07/02/24 by Jose Elias Elizabeth MD acetaminophen 650 mg (2 x 325 mg) PO Q6H PRN 30 days amlodipine 10 mg PO DAILY 90 days aspirin 81 mg PO DAILY lisinopril 40 mg PO DAILY tadalafil 20 mg PO BEDTIME PRN triamcinolone acetonide 0.1% 1 appl topical DAILY PRN walker Folding Front wheeled walker HPI Comments Details: Ralph is a pleasant 63-year-old man with obesity and hypertension referred for proteinuria. He had dipstick positive proteinuria. Renal function is normal with a creatinine of 0.86 mg/dL. He has had hypertension for several years. Initially blood pressure was suboptimal. Recent readings are acceptable. He has a history of significant obesity. Weight has been stable around 50 lb. History of osteoarthritis status post bilateral knee replacement. No history of smoking cigarette or alcohol abuse. He is retired ,lives alone. Past medical history significant for laparotomy. He had diverticulosis followed by ileostomy bag. This was later complicated by he ventral hernia and status post herniorrhaphy with mesh. placement and removal PFSH Medical History Osteoarthritis of right knee Eczema HTN (hypertension) GERD (gastroesophageal reflux disease) Sleep apnea Morbid obesity Hx of diverticulitis of colon Surgical History S/P total knee arthroplasty H/O colonoscopy History of colon resection Hx of hernia repair Family History Father Hypertension CVD (cardiovascular disease) Mother Hypertension Social History Household Members: None Household Members Other:: sister Housing: House Are you a primary live in caregiver to a significant other at home: No Do you presently have visiting nurse or other home services: No Unable to assess alcohol history related to: Unknown Alcohol intake: current Alcohol intake frequency: holidays/special occasions only Comment: COUNTS CORRECT Patient Tobacco Use Status: Never used Tobacco e-Cigarette/Vaping Use: Never Used Second Hand Smoke Exposure: No Substance Use Type: Marijuana service: No Current occupational status: retired and disabled Cognitive needs: No Hearing needs: No Vision needs: No Physical Exam Vital Signs: Last Vital Signs Pulse 90 07/02/24 10:59 BP 130/70 07/02/24 11:12 Pulse Ox 95 07/02/24 10:59 Oxygen Delivery Method Room Air 07/02/24 10:59 BMI result Body Mass Index 48.3 Comfortable Obese Neck supple no JVD. Lungs entry equal no rales. Heart S1-S2 heard no gallop or rub. Abdomen soft nontender. Multiple scars from previous surgery Neuro alert awake oriented. No asterixis. Extremities no edema. Results Reviewed Nephrology Results: Hgb 16.8 g/dl (14.0-18.0) 05/22/24 WBC 5.0 X10*3/uL (4.8-10.8) 05/22/24 Plt Count 176 X10*3/uL (160-400) 05/22/24 Sodium 140 mmol/L (135-145) 05/22/24 Potassium 4.2 mmol/L (3.3-5.1) 05/22/24 Chloride 110 mmol/L (96-108) H 05/22/24 Carbon Dioxide 25 mmol/L (22-29) 05/22/24 BUN 17 mg/dL (9-16) H 05/22/24 Creatinine 0.86 mg/dL (0.5-1.4) 05/22/24 Calcium 8.7 mg/dL (8.4-10.2) 05/22/24 Urine Protein 30 (1+) mg/dL (Neg-Trace) H 06/16/24 Urine Creatinine 64.45 mg/dL 06/16/24 Renal US 06/18/24 Assessment & Plan Assessment & Plan (1) Proteinuria: Code(s): R80.9 - Proteinuria, unspecified Category: Medical (2) Essential (primary) hypertension: Code(s): I10 - Essential (primary) hypertension Category: Medical (3) Morbid obesity: Code(s): E66.01 - Morbid (severe) obesity due to excess calories Category: Medical Plan 59-year-old man with obesity and hypertension with proteinuria by dipstick. Both obesity and hypertension could be contributing to the proteinuria. Urine protein excretion of 0.6. No monoclonal Blood pressure is acceptable at this time. Encouraged him to stand low-sodium diet He will definitely benefit from weight loss. Encouraged him to increase physical activities. At this point renal function stable. Orders: Orders US bladder Today I10 - Essential (primary) hypertension, R80.9 - Proteinuria, unspecified Basic Metabolic Panel 6 Months R80.9 - Proteinuria, unspecified Creatinine Urine 6 Months R80.9 - Proteinuria, unspecified Total Protein Urine Random 6 Months R80.9 - Proteinuria, unspecified UA and rflx microscopic 6 Months R80.9 - Proteinuria, unspecified Coding Level of Care Code Est Pt Level 4 (40314) Diagnoses Proteinuria R80.9 Essential (primary) hypertension I10 Morbid obesity E66.01
[2024-07-02 11:12] VITALS: BP 130/70
== END 2024-07-02 11:16 | disposition home or self-care (01) ==
PROVIDERS: PCP Nurse Practitioner Family; Visit Provider Internal Medicine Hypertension Specialist
DX: R80.9 Proteinuria, unspecified (principal); I10 Essential (primary) hypertension; E66.01 Morbid (severe) obesity due to excess calories
CPT/HCPCS: 99214

== ENCOUNTER → 2024-07-02 10:37 | Outpatient (BNVA) | payer OTHER, SELFPAY | PROVIDERS: PCP Nurse Practitioner Family; Visit Provider Internal Medicine Hypertension Specialist | DX: R80.9 Proteinuria, unspecified (principal); I10 Essential (primary) hypertension; E66.01 Morbid (severe) obesity due to excess calories; Z68.42 Body mass index [BMI] 45.0-49.9, adult | CPT/HCPCS: 99212 ==

== ENCOUNTER 2024-07-22 15:53 | Outpatient (REF) | payer OTHER, SELFPAY ==
--- NOTE | ~2024-07-22 | US_ITS ---
EXAMINATION: US BLADDER HISTORY: R80.9 - Proteinuria, unspecified COMPARISON: There are no prior studies for comparison. FINDINGS: Sonographic examination of the urinary bladder was performed before and after voiding. Before voiding, the urinary bladder measured 9.6 x 5.1 x 9.3, for an estimated volume of240 mL. After voiding, the urinary bladder measured4.4 x 3.0 x 4.8, for an estimated volume of 33 mL. No intrinsic bladder abnormality is identified. Bilateral ureteral jets are identified. The prostate measures 5.0 x 5.1 x 5.3 cm. US/US bladder IMPRESSION: Unremarkable sonographic evaluation of the urinary bladder. Post void bladder residual of 33 mL. Electronically signed by: Zackary Alberto MD 07/23/2024 07:58 AM EDT
== END 2024-07-22 15:54 | disposition home or self-care (01) ==
LOC: HO.US 15:53
PROVIDERS: PCP Nurse Practitioner Family; Visit Provider Internal Medicine Hypertension Specialist
DX: R80.9 Proteinuria, unspecified (principal); I10 Essential (primary) hypertension
CPT/HCPCS: 76857

== ENCOUNTER → 2024-07-22 15:54 | Outpatient (BNV) | payer OTHER, SELFPAY | PROVIDERS: PCP Nurse Practitioner Family; Visit Provider Radiology Diagnostic Radiology | DX: R80.9 Proteinuria, unspecified (principal) | CPT/HCPCS: 76857 ==

== ENCOUNTER 2024-10-06 10:42 | Outpatient (AMB) | payer OTHER, SELFPAY ==
--- NOTE | 2024-10-06 10:44 | MHC.PC.OV ---
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 Accompanied by: Self / Same As Patient Allergies CLEAR TAPE Allergy (Unknown, Uncoded 10/06/24 11:33) RASH Medication List - Last Reconciled 10/06/24 by GARRETT Tejada- acetaminophen 650 mg (2 x 325 mg) PO Q6H PRN 30 days amlodipine 10 mg PO DAILY 90 days amoxicillin 2,000 mg (4 x 500 mg) PO ONCE 1 day aspirin 81 mg PO DAILY lisinopril 40 mg PO DAILY tadalafil 20 mg PO BEDTIME PRN triamcinolone acetonide 0.1% 1 appl topical DAILY PRN walker Folding Front wheeled walker Tobacco use date assessed: 10/06/24 Fall risk assessment: No Falls in past year Last assessed Fall Risk: 10/06/24 Dental Screening Dental Screen Date: 10/06/24 Did you have a dental visit in the last 12 months?: Yes Did you have a dental problem in the last 6 months where you did not have access to dental care?: No Was dental information given to patient?: Patient has dentist HPI Annual PE HPI Details History of Present Illness The patient is a 63-year-old male presenting for a routine physical examination. He is due for a repeat colon cancer screening as a part of his health maintenance due. The patient is under the care of a urologist for monitoring and management of elevated Prostate-Specific Antigen (PSA), a known indicator necessitating close urological follow-up. He reports no current symptoms such as chest pain, shortness of breath, abdominal pain, or gastrointestinal disturbances such as constipation, diarrhea, or hematochezia. Additionally, he has no recent suicidal ideation. Previously, the patient has undergone multiple abdominal surgeries due to diverticulitis and mesh infection, leaving healed scarring, but he reports no related ongoing issues. 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 -refused vaccinations Social History Review of Systems -denies any fevers/chills - Cardiovascular: Denies chest pain - Respiratory: Denies shortness of breath - Gastrointestinal: Denies abdominal pain, constipation, diarrhea, blood in stool - Psychiatric: Denies suicidal or hypicidal ideation Physical Exam General: Cooperative, healthy appearing, comfortable, no acute distress and well developed, morbidly obese Orientation: Patient oriented x3 Limitations: No limitations Head: Normal to inspection Ears: Hearing grossly normal bilaterally Nose: Normal external nose present Face and sinus: Normal facial exam Eyes: Appearance normal, both eyes and all related structures Neck: Normal visual inspection and Yes full ROM Respiratory: Normal respiratory effort and able to speak in complete sentences. Clear/slightly dim to auscultation bilaterally Cardiovascular: Regular rate and rhythm. Normal S1 and S2 GI: Normal to inspection. Soft to palpation and nontender. Healed scars to abdomen from multiple prior surgeries Skin: No rashes or lesions noted Neuro: Patient oriented x3 Extremities: Normal to inspection Results Plan I have initiated the referral process for the patient to receive a repeat colon cancer screening as part of his preventive healthcare. The patient's elevated PSA is being managed by his urologist, and I emphasized the importance of continued follow-ups with them. He has no present symptoms necessitating additional immediate diagnostics or interventions. The historical surgeries for diverticulitis and mesh infections seem resolved, with no current indications for additional concern, hence no further treatment is necessary for these past conditions at present. Discussion Notes I discussed the necessity of the colon cancer screening due to his current health maintenance schedule and confirmed that the referral has been initiated. We talked about the patient's elevated PSA being under evaluation with his urologist, ensuring he continues urological assessments. We reviewed his medical history, including previous surgeries for diverticulitis and mesh infection, with the understanding that no current issues persist from those events. The patient was informed of the importance of keeping regular follow-up appointments and adhering to the scheduled screening examinations to maintain optimal health. Patient Instructions - Schedule and undergo the recommended colon cancer screening. - Continue with regular follow-ups with the urologist for elevated PSA levels. - Seek medical attention if you experience new or concerning symptoms like severe abdominal pain or noticeable changes in bowel movements. - Keep track of your health maintenance appointments and follow the advice of your healthcare providers. [facility] Medical History (Updated 10/06/24 @ 11:46 by GARRETT Tejada-) Osteoarthritis of right knee Eczema HTN (hypertension) GERD (gastroesophageal reflux disease) Sleep apnea Morbid obesity Hx of diverticulitis of colon Surgical History S/P total knee arthroplasty H/O colonoscopy History of colon resection Hx of hernia repair Family History Father Hypertension CVD (cardiovascular disease) Mother Hypertension Social History Household Members: None Household Members Other:: sister Housing: House Are you a primary career services officer to a significant other at home: No Do you presently have visiting nurse or other home services: No Unable to assess alcohol history related to: Unknown Alcohol intake: current Alcohol intake frequency: holidays/special occasions only Comment: COUNTS CORRECT Patient Tobacco Use Status: Never used Tobacco e-Cigarette/Vaping Use: Never Used Second Hand Smoke Exposure: No Substance Use Type: Marijuana service: No Current occupational status: retired and disabled Cognitive needs: No Hearing needs: No Vision needs: No Questionnaire PHQ-9 Over the last 2 weeks, how often have you been bothered by any of the following problems? 1. Little interest or pleasure in doing things: not at all 2. Feeling down, depressed, or hopeless: not at all 3. Trouble falling or staying asleep, or sleeping too much: not at all 4. Feeling tired or having little energy: not at all 5. Poor appetite or overeating: not at all 6. Feeling bad about yourself - or that you are a failure or have let yourself or your family down: not at all 7. Trouble concentrating on things, such as reading the newspaper or watching television: not at all 8. Moving or speaking so slowly that other people could have noticed. Or the opposite - being so fidgety or restless that you have been moving around a lot more than usual: not at all 9. Thoughts that you would be better off or of hurting yourself in some way: not at all Total score: 0 Depression Screening Interpretation: Negative Depression Screening Done: Yes 43478 - PHQ-9 Billing: Yes Source: Developed by Drs. Zackary Pace, Zuri Pickett, Jaime Young and colleagues, with an educational cecilia from [employer]. Thrive Questionnaire Date Thrive assessed: 10/06/24 I am a: Patient What is your living situation today?: I choose not to answer this question Within the past 12 months, did the food you bought not last and you didn't have the money to get more?: I choose not to answer this question Within the past 12 months, did you worry whether your food would run out before you got money to buy more?: I choose not to answer this question Do you have trouble paying for medicines?: I choose not to answer this question Do you have trouble getting transportation to medical appointments?: I choose not to answer this question Do you have trouble paying your heating and electricity bill?: I choose not to answer this question Do you have trouble taking care of your child, family member or friend?: I choose not to answer this question Do you have trouble with day-to-day activities such as bathing, preparing meals, shopping, managing finances, etc.?: I choose not to answer this question Are you currently unemployed and looking for a job?: I choose not to answer this question Are you interested in more education?: I choose not to answer this question Please select the resources that you would like help with: None Currently or been in a relationship where the following occur: I choose not to answer THRIVE Score: 0 AUDIT C Alcohol Use Questionnaire (AUDIT-C) 1. How often do you have a drink containing alcohol?: Never 3. How often do you have six or more drinks on one occasion?: Never Total Score: 0 Score Reviewed/Action Taken: Yes SREEKANTH-7 AMB Questionnaire SREEKANTH-7 Date SREEKANTH - 7 assessed: 10/06/24 (patient declined) Source: Developed by Drs. Zackary Pace, Zuri Pickett, Jaime Young and colleagues, with an educational cecilia from [employer]. Physical exam (Primary Care) Vital Signs: Last Vital Signs Pulse 81 10/06/24 10:45 BP 144/80 H 10/06/24 10:45 Pulse Ox 97 10/06/24 10:45 Oxygen Delivery Method Room Air 10/06/24 10:45 BMI result Body Mass Index 47.6 Tobacco/Smoking Status: Tobacco use Status Tobacco use date assessed 10/06/24 10/06/24 10:46 Patient Tobacco Use Status Never used Tobacco 10/06/24 10:46 e-Cigarette/Vaping Use Never Used 10/06/24 10:46 PHQ-9: PHQ-9 Score PHQ-9: Total score 0 10/06/24 10:46 Depression Screening Interpretation: Negative Thrive Assessment: Date of Thrive Assessment Date Thrive assessed 10/06/24 10/06/24 10:46 Currently or been in a relationship where the following occur: I choose not to answer Coding Level of Care Code Est Pt Prev Care 40-64y(17140) Diagnoses Screening for colon cancer Z12.11 Encounter for routine adult physical exam with abnormal findings Z00. HTN (hypertension) I10 Additional Codes PHQ-9 - 17418 - PHQ-9 Billing: Yes ([id number]) Assessment & Plan Assessment & Plan (1) Screening for colon cancer: Code(s): Z12.11 - Encounter for screening for malignant neoplasm of colon Category: Medical (2) Encounter for routine adult physical exam with abnormal findings: Code(s): Z00. - Encounter for general adult medical examination with abnormal findings Category: Medical (3) HTN (hypertension): Code(s): I10 - Essential (primary) hypertension Category: Medical Plan . Orders: Orders UA CC w/rflx Micro + Cult Today Z00.01 - Encounter for general adult medical examination with abnormal findings Lipid Panel Today Z00.01 - Encounter for general adult medical examination with abnormal findings Complete Blood Count Auto Diff Today Z00.01 - Encounter for general adult medical examination with abnormal findings Comprehensive [place]. Panel Fast Today Z00.01 - Encounter for general adult medical examination with abnormal findings TSH reflex Free T4 Today Z00.01 - Encounter for general adult medical examination with abnormal findings Referrals Gastroenterology Referral Z12.11 - Encounter for screening for malignant neoplasm of colon Medications: New amoxicillin tale all 4 caps 45 minutes before any dental procedure 2,000 mg (4 x 500 mg) PO ONCE 1 day 4 caps 3RF pre-dental diazepam please take one tab 1 hr before MRI, please do not drive while on med 10 mg PO ONCE 1 day PRN 1 tab 0RF pre-MRI Refilled lisinopril 40 mg PO DAILY 90 tabs 2RF I10 - Essential (primary) hypertension amlodipine 10 mg PO DAILY 90 days 90 tabs 2RF I10 - Essential (primary) hypertension
[2024-10-06 10:45] VITALS: BP 144/80; PULSE 81; O2SAT 97; BMI 47.6
== END 2024-10-06 12:02 | disposition home or self-care (01) ==
LOC: HO.HMCC 10:42
PROVIDERS: PCP Nurse Practitioner Family; Visit Provider Nurse Practitioner Family
DX: Z12.11 Encounter for screening for malignant neoplasm of colon (principal); Z00.01 Encounter for general adult medical examination with abnormal findings; I10 Essential (primary) hypertension

== ENCOUNTER → 2024-10-06 10:42 | Outpatient (BNVA) | payer OTHER, SELFPAY | PROVIDERS: PCP Nurse Practitioner Family; Visit Provider Nurse Practitioner Family | DX: Z00.01 Encounter for general adult medical examination with abnormal findings (principal); I10 Essential (primary) hypertension | CPT/HCPCS: 96127; 99396 ==

== ENCOUNTER 2024-10-22 07:18 | Outpatient (AMB) | payer OTHER, SELFPAY ==
--- NOTE | 2024-10-22 07:35 | MHC.PC.OV ---
Intake Visit Reasons: Discuss MRI and urology referral-iPhone Allergies CLEAR TAPE Allergy (Unknown, Uncoded 10/06/24 11:33) RASH Medication List - Last Reconciled 10/22/24 by GARRETT Tejada- acetaminophen 650 mg (2 x 325 mg) PO Q6H PRN 30 days amlodipine 10 mg PO DAILY 90 days amoxicillin 2,000 mg (4 x 500 mg) PO ONCE 1 day aspirin 81 mg PO DAILY diazepam 10 mg PO ONCE PRN 1 day lisinopril 40 mg PO DAILY tadalafil 20 mg PO BEDTIME PRN triamcinolone acetonide 0.1% 1 appl topical DAILY PRN walker Folding Front wheeled walker Tobacco use date assessed: 10/06/24 Dental Screening Dental Screen Date: 10/06/24 HPI Discuss MRI and urology referral-iPhone HPI Details History of Present Illness The patient is a 63-year-old male presenting for a telehealth visit concerning his prostate health. He has a significant family history of prostate cancer, with his brother recently having a PSA level of 16. The patient has experienced a rising PSA level over many years but was initially reluctant to undergo a biopsy. He eventually decided to have an MRI of his prostate, which revealed a PI-RADS 4 lesion in the left peripheral zone and a PI-RADS 3 lesion in the right transition zone. The MRI indicated that the prostate measured 82 cm, and it was recommended that he undergo a transurethral resection of the prostate (TURP) and a biopsy. The patient expressed discomfort with his previous provider and requested a referral to Dr. Genao, which was agreed upon. His biopsy was scheduled for January, which he felt was too far away, prompting the request for a referral. Review of Systems Plan The patient will be referred to Dr. Genao for further evaluation and management of his prostate health concerns. A transurethral resection of the prostate TURP) and a biopsy have been recommended based on the MRI findings. The patient expressed a desire to expedite the biopsy, initially scheduled for January, and this will be addressed with the new provider. Discussion Notes I discussed with the patient the findings of his MRI, which showed lesions in the prostate, and the recommendation for a TURP and biopsy. The patient expressed discomfort with his current provider and requested a referral to Dr. Genao, which I agreed to facilitate. We also discussed the timing of the biopsy, initially scheduled for January, and the patient's preference to have it sooner. Patient Instructions - Follow up with Dr. Genao for further evaluation and management. - Prepare for a possible TURP and biopsy as recommended. - Contact the office if there are any changes in symptoms or concerns. [facility] Medical History (Updated 10/22/24 @ 07:36 [facility] Osteoarthritis of right knee Eczema HTN (hypertension) GERD (gastroesophageal reflux disease) Sleep apnea Morbid obesity Hx of diverticulitis of colon Surgical History S/P total knee arthroplasty H/O colonoscopy History of colon resection Hx of hernia repair Family History Father Hypertension CVD (cardiovascular disease) Mother Hypertension Social History Household Members: None Household Members Other:: sister Housing: House Are you a primary managed care provider to a significant other at home: No Do you presently have visiting nurse or other home services: No Unable to assess alcohol history related to: Unknown Alcohol intake: current Alcohol intake frequency: holidays/special occasions only Comment: COUNTS CORRECT Patient Tobacco Use Status: Never used Tobacco e-Cigarette/Vaping Use: Never Used Second Hand Smoke Exposure: No Substance Use Type: Marijuana service: No Current occupational status: retired and disabled Cognitive needs: No Hearing needs: No Vision needs: No Questionnaire Thrive Questionnaire Date Thrive assessed: 10/06/24 SREEKANTH-7 AMB Questionnaire SREEKANTH-7 Date SREEKANTH - 7 assessed: 10/06/24 Source: Developed by Drs. Zackary Pace, Zuri Pickett, Jaime Young and colleagues, with an educational cecilia from [employer]. Physical exam (Primary Care) Tobacco/Smoking Status: Tobacco use Status Tobacco use date assessed 10/06/24 10/21/24 09:33 Patient Tobacco Use Status Never used Tobacco 10/21/24 09:33 e-Cigarette/Vaping Use Never Used 10/21/24 09:33 Thrive Assessment: Date of Thrive Assessment Date Thrive assessed 10/06/24 10/21/24 09:33 Telehealth Telehealth Telehealth Platform: YABUY Location of provider rendering services: practice address Location of patient: address on file Patient Identification confirmed using: Name, : Yes Telehealth method: video Patient verbally consented to treatment: Yes Patient verbally consented to billing insurance company: Yes Patient informed of any privacy concerns related to visit: Yes Minutes spent on Phone/Video with Pt.: 10 Coding Level of Care Code Tele Est Pt Level 3 (86424) Diagnoses Prostate cancer C61 Assessment & Plan Assessment & Plan (1) Prostate cancer: Code(s): C61 - Malignant neoplasm of prostate Category: Medical Plan . Orders: Referrals Urology Referral C61 - Malignant neoplasm of prostate
== END 2024-10-22 08:02 | disposition home or self-care (01) ==
LOC: HO.HMCC 07:18
PROVIDERS: PCP Nurse Practitioner Family; Visit Provider Nurse Practitioner Family
DX: C61 Malignant neoplasm of prostate (principal)

== ENCOUNTER → 2024-10-22 07:18 | Outpatient (BNVA) | payer OTHER, SELFPAY | PROVIDERS: PCP Nurse Practitioner Family; Visit Provider Nurse Practitioner Family | DX: Z13.89 Encounter for screening for other disorder (principal) ==

== ENCOUNTER 2024-12-11 09:39 | Outpatient (AMB) | payer OTHER, SELFPAY ==
--- OUTSIDE RECORDS SUMMARY | 2024-12-11 09:42 | XMS_ITS | Clinical Summary ---
Author Organization [address] [facility] Address [address] [place] [address] Phone Care Team Providers Care Powerplant Operator Name Role Phone Paul Bonilla NP Primary Care Provider Encounters Date Type Department Care Team Description 12/03/2024 Lab Requisition [facility] - Main Lab [address] [facility] [place] [address] Smooth Genao MD Elevated prostate specific antigen (PSA) from Last 3 Months Surgical History Surgery Date Site/Laterality Comments ABDOMINAL SURGERY PROCEDURE: HISTORICAL ABDOMINAL SURGERY Medical History Medical History Date Comments HTN (hypertension) DX:HTN (hyper tension) Dyslipidemia DX:Dyslipidemia Family History Medical History Relation Name Comments Prostate cancer Brother Coronary artery disease Father COPD Mother Lung cancer Mother's side 1 aunt Lung cancer Mother's side 2 aunt Breast cancer Sister 1 Breast cancer Sister 2 Blindness Neg Hx Cataracts Neg Hx Glaucoma Neg Hx Macular degeneration Neg Hx Strabismus Neg Hx Relation Name Status Comments Brother Father Mother Mother's side 1 Mother's side 2 Sister 1 Sister 2 Social History Tobacco Use Types Packs/Day Years Used Date Smoking Tobacco: Never Smokeless Tobacco: Never Alcohol Use Standard Drinks/Week Comments No 0 (1 standard drink = 0.6 oz pur e alcohol) Sex and Gender Information Value Date Recorded Sex Assigned at Not on file Legal Sex Male 1:28 PM EST Gender Identity Not on file Sexual Orientation Not on file Obstetrics History Plan of Treatment Health Maintenance Due Date Last Done Comments Pneumococcal Vaccine: 50+ Ye ars (1 of 1 - PCV) 11/27/2009 Zoster Vaccines (1 of 2) 11/27/2009 COVID-19 Vaccine (2023-2 5 season) 2024 Depression Screening 05/06/2024 Abdominal Aortic Aneurysm (A AA) Screen 12/03/2024 Cholesterol Screening (Lipid Panel) 12/03/2024 Colorectal Cancer Screening: Colonoscopy 12/03/2024 Falls Risk Assessment 12/03/2024 Hepatitis C Screening 12/03/2024 Hypertension/CHF/CAD Annual BMP Blood Test 12/03/2024 Social Influencers of Health Screening 12/03/2024 Influenza Vaccine (#1) 2025 DTaP,Tdap,and Td Vaccines (2 - Td or Tdap) 07/24/2026 07/24/2016 RSV Immunization Adult Patie nts (1 - 1-dose 75+ series) 11/27/2034 HIB Vaccines Aged Out No longer eligi ble based on patient's age to complete this topic HPV Vaccines Aged Out No longer eligi ble based on patient's age to complete this topic Hepatitis A Vaccines Aged Out No long er eligible based on patient's age to complete this topic Hepatitis B Vaccines Aged Out No long er eligible based on patient's age to complete this topic IPV Vaccines Aged Out No longer eligi ble based on patient's age to complete this topic MMR Vaccines Aged Out No longer eligi ble based on patient's age to complete this topic Meningococcal ACWY Vaccine Aged Out N o longer eligible based on patient's age to complete this topic Meningococcal B Vaccine Aged Out No l onger eligible based on patient's age to complete this topic RSV Immunization Patients Un james 20 months Aged Out No longer eligible b ased on patient's age to complete this topic Varicella Vaccines Aged Out No longer eligible based on patient's age to complete this topic Procedures Procedure Name Priority Date/Time Associated Diagnosis Comments FLUOROQUINOLONE RESISTANT GNR IDENTIFICATION AND SUSCEPTIBILITY Routine 12/03/2024 12:00 AM EDT Elevated prostate specific antigen (PSA) CULTURE FLUOROQUINOLONE RESISTANT ORGANISM Routine 12/03/2024 12:00 AM EDT Elevated prostate specific antigen (PSA) from Last 3 Months Results * Fluoroquinolone resistant GNR identification and susceptibility (12/03/2024 12:00 AM EDT) Result 1 No Fluoroquinolone Resistant GNR Detected. 12/06/2024 12:05 PM EDT [facility] Swab Rectum structure / Unknown 12/03/2024 12/03/2024 10:26 AM EDT Narrative [facility] - 12/06/2024 12:05 PM EDT Performed at: - [facility] [address] [id number] Sales Management Trainee: Savanna Jean Baptiste MD, Phone: [phone] us Smooth Genao MD LAB MICROBIOLOGY - GENERAL ORDER TONIA Final Result Performing Organization Address City/[facility]/ZIP Co de Phone Number [facility] * Culture fluoroquinolone resistant organism (12/03/2024 12:00 AM EDT) Fluoroquinolone Resist GNR Cul Final report 12/06/2024 12:05 PM EDT [facility] Swab Rectum structure / Unknown 12/03/2024 12/03/2024 10:26 AM EDT Narrative [facility] - 12/06/2024 12:05 PM EDT Performed at: - [facility] [address] [id number] Sales Management Trainee: Savanna Jean Baptiste MD, Phone: [phone] us Smooth Genao MD LAB MICROBIOLOGY - GENERAL ORDER TONIA Final Result Performing Organization Address [facility] Co de Phone Number [facility] from Last 3 Months Insurance [place]ICA[place] - [place] [facility] Member Subscriber Plan / Payer (Ef fective 2020-Present) Name:RALPH SUTTON Relation to Subscriber:Self Name:Ralph Sutton Payer ID:[id number] Group ID:[id number] Type:Not on file Address: [facility] [address] [id number] Care Teams Powerplant Operator Relationship Specialty Start Date End Date Paul Bonilla NP [address] [place], [place] PCP - General Family Medicine 12/03/24
--- NOTE | 2024-12-11 09:43 | A.OFFVIS_ITS ---
Vital Signs 12/11/24 09:44 Height 5 ft 11 in Weight 340 lb BMI 47.4 BP 133/71 Blood Pressure Location Lt brachial Position Sitting Pulse 74 Pulse Oximetry (%) 96 Oxygen Delivery Method Room Air Intake Visit Reasons: Colonoscopy Screening Intake Note: Patient new consult for 3rd pre Colonoscopy screening. [place] [facility] [place] Patient denies any GI issues. Hx diverticulitis. Project Scientist Required: No Accompanied by: Self / Same As Patient Allergies CLEAR TAPE Allergy (Unknown, Uncoded 10/06/24 11:33) RASH Medication List - Last Reconciled 12/11/24 by Evy Pearson CNP acetaminophen 650 mg (2 x 325 mg) PO Q6H PRN 30 days amlodipine 10 mg PO DAILY 90 days amoxicillin 2,000 mg PO ONCE PRN aspirin 81 mg PO DAILY diazepam 10 mg PO ONCE PRN 1 day lisinopril 40 mg PO DAILY tadalafil 20 mg PO BEDTIME PRN triamcinolone acetonide 0.1% 1 appl topical DAILY PRN walker Folding Front wheeled walker HPI HPI Colonoscopy Screening: Details: Patient is a 64-year-old male with PMH of obesity, hypertension, sleep apnea, OA, eczema and GERD. Referred by PCP for pre colonoscopy screening This will be [place] third colonoscopy, the last performed about seven years ago with no reported abnormal findings. He denies current gastrointestinal symptoms such as abdominal pain, nausea, vomiting, constipation, or diarrhea and states he has regular bowel movements, typically once or twice daily, depending on dietary intake. He denies blood in stools and describes himself as vigilant about bowel health due to his complex past medical history. Significant history includes prior diverticulitis requiring multiple surgeries, including colostomy and ileostomy placements and reversals. Subsequent complications included surgical hernias, necessitating mesh placement, later followed by mesh removal due to infection. He denies current symptoms related to those surgeries. No unexplained weight loss, nausea, vomiting, heartburn, or difficulty swallowing reported. Comorbid conditions include a history of obesity and briefly discussed high cholesterol. Recent imaging, including bladder and kidney ultrasounds earlier this year, was normal. He notes undergoing evaluation for elevated PSA, with an MRI indicating areas classified as PI-RADS 3. He awaits biopsy scheduling for further assessment. He remains stable overall and notes a current weight of ~330-340 lbs. Social hx: -Diet: Reports overall healthy diet but admits occasional high cholesterol- related dietary indulgence (e.g., eggs/gusman ahead of lab testing, per anecdotal practice). -Alcohol Use: Recently resumed occasional cocktail consumption (~1-2 drinks every 2 weeks, started in the past 3-4 months). -Tobacco/Drug Use: Denies tobacco use. 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 Previously used cocaine but ceased use decades ago. 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 - family hx as below -denies personal hx of CA -denies significant cardiopulmonary history -tolerated anesthesia in the past without difficulty. [facility] Medical History (Updated 12/11/24 @ 10:08 by Evy Pearson CNP) Hyperlipidemia Osteoarthritis of right knee Eczema HTN (hypertension) GERD (gastroesophageal reflux disease) Sleep apnea Morbid obesity Hx of diverticulitis of colon Surgical History S/P total knee arthroplasty H/O colonoscopy History of colon resection Hx of hernia repair Family History (Updated 12/11/24 @ 10:09 by Evy Pearson CNP) Father Hypertension CVD (cardiovascular disease) Mother Hypertension Sister Bladder cancer Brother Prostate cancer Social History Household Members: None Household Members Other:: sister Housing: House Are you a primary child care lead teacher to a significant other at home: No Do you presently have visiting nurse or other home services: No Unable to assess alcohol history related to: Unknown Alcohol intake: current Alcohol intake frequency: holidays/special occasions only Comment: COUNTS CORRECT Patient Tobacco Use Status: Never used Tobacco e-Cigarette/Vaping Use: Never Used Second Hand Smoke Exposure: No Substance Use Type: Marijuana service: No Current occupational status: retired and disabled Cognitive needs: No Hearing needs: No Vision needs: No Review of Systems Const Reports as per HPI ENT Reports as per HPI Card Reports as per HPI Resp Reports as per HPI GI Reports as per HPI Reports as per HPI Physical Exam Vital Signs: Last Vital Signs Pulse 74 12/11/24 09:44 BP 133/71 12/11/24 09:44 Pulse Ox 96 12/11/24 09:44 Oxygen Delivery Method Room Air 12/11/24 09:44 BMI result Body Mass Index 47.4 Const General: healthy appearing, no acute distress and well developed Nutritional Appearance: average body habitus Orientation/consciousness: patient oriented x3 HEENT Head: Yes normal to inspection, Yes normocephalic and Yes atraumatic Face and sinus: Yes normal facial exam Eyes General: appearance normal, both eyes and all related structures Neck Neck: Yes normal visual inspection Resp Effort & Inspection: normal respiratory effort, able to speak in complete sentences, no tracheal deviation and symmetric chest movement GI Inspection: Yes obesity Neuro General: patient oriented x3 Gait exam (Neuro): Normal gait present Psych Appearance: grossly normal Mental Status: mental status grossly normal Speech and movement: Normal speech and movement present Affect: normal affect Attitude: cooperative Thought process: Normal thought process present Thought content: Normal thought content present Insight: Good insight present (Psych) Judgement: Good judgement present (Psych) Assessment & Plan Assessment & Plan (1) Screening for colon cancer: Code(s): Z12.11 - Encounter for screening for malignant neoplasm of colon Category: Medical Plan: Routine surveillance for colorectal disease following prior surgeries, including colostomy and ileostomy placement/reversal. Medications: -prescriptions for laxative tablets and MiraLax sent to pharmacy; instructions for Gatorade purchase and clear liquid diet given. -understands the ASA will need to be held days prior to procedure. Nurse to review med holds per protocol. Patient educated on scheduling process, procedure preparation, including avoiding certain foods and ensuring clear liquid intake Advised on necessity for ride post-procedure due to sedation. (2) Hyperlipidemia: Code(s): E78.5 - Hyperlipidemia, unspecified Category: Medical Qualifiers: Hyperlipidemia type: mixed hyperlipidemia Qualified Code(s): E78.2 - Mixed hyperlipidemia Plan: Elevated cholesterol on recent labs; no current pharmacologic therapy Additional Testing: Routine lipid panel at next PCP visit Medication Management: None initiated at this time; continue current regimen Lifestyle Recommendations: -Emphasize heart-healthy diet (minimize fried/fatty foods, increase whole foods) -Encourage weight loss and regular physical activity as tolerated Follow-Up:Monitor lipids with PCP; reinforce dietary counseling at future visits (3) Elevated PSA: Code(s): R97.20 - Elevated prostate specific antigen [PSA] Category: Medical Plan: Elevated PSA with MRI findings (PI-RADS 3) warrants biopsy to rule out malignancy. Plan: Patient to confirm biopsy scheduling with urologist. No immediate GI involvement required but noted for overall coordination of care. Plan Follow-up after colonoscopy if warranted or sooner if needed Time: I spent a total of 30 minutes on the date of encounter which includes: Preparing to see the patient (reviewed previous documentation, test results and medical history) Performing a medically appropriate exam and/or evaluation Ordering medications, tests, and procedures Documenting clinical information in the health record Medications: New bisacodyl (Dulcolax (bisacodyl)) Take four tablets pre colonoscopy instructions 20 mg (4 x 5 mg) PO ONCE 4 tabs 0RF 1 day Evy Michel PHLEBOTOMY DIRECTOR polyethylene glycol 3350 (Miralax) per colonoscopy prep instructions 238 grams PO ONCE 238 grams 0RF Evy Muluy, PHLEBOTOMY DIRECTOR Changed From amoxicillin tale all 4 caps 45 minutes before any dental procedure 2,000 mg (4 x 500 mg) PO ONCE 1 day 4 caps 3RF pre-dental To amoxicillin tale all 4 caps 45 minutes before any dental procedure 2,000 mg PO ONCE PRN Paul Bonilla, GARRETT-LAZARO Coding Level of Care Code New Pt New Pt Level 3 (49589) Patient Type New Diagnoses Screening for colon cancer Z12.11 Mixed hyperlipidemia E78.2 Hyperlipidemia type: mixed hyperlipidemia Elevated PSA R97.20
[2024-12-11 09:44] VITALS: BP 133/71; PULSE 74; O2SAT 96; BMI 47.4
== END 2024-12-11 10:22 | disposition home or self-care (01) ==
LOC: HO.HGI 09:39
PROVIDERS: PCP Nurse Practitioner Family; Visit Provider Nurse Practitioner Family
DX: Z01.818 Encounter for other preprocedural examination (principal); Z12.11 Encounter for screening for malignant neoplasm of colon; E78.2 Mixed hyperlipidemia; R97.20 Elevated prostate specific antigen [PSA]
CPT/HCPCS: 99024

== ENCOUNTER → 2024-12-11 09:39 | Outpatient (BNVA) | payer OTHER, SELFPAY | PROVIDERS: PCP Nurse Practitioner Family; Visit Provider Nurse Practitioner Family | DX: Z01.818 Encounter for other preprocedural examination (principal); E78.2 Mixed hyperlipidemia; R97.20 Elevated prostate specific antigen [PSA]; Z87.19 Personal history of other diseases of the digestive system | CPT/HCPCS: 99212 ==

== ENCOUNTER 2024-12-23 13:48 | Outpatient (REF) | payer OTHER, SELFPAY ==
--- OUTSIDE RECORDS SUMMARY | 2024-12-23 14:44 | XMS_ITS | Clinical Summary ---
Author Organization [facility] Address [address] [place] [address] Phone Care Team Providers Care Occupational Therapy Program Director Name Role Phone Paul Bonilla NP Primary Care Provider Encounters Date Type Department Care Team Description 12/03/2024 Lab Requisition [facility] - Main Lab [address] [facility] [employer] [place] [address] Smooth Genao MD Elevated prostate [...] 12:05 PM EDT Performed at: - [facility] [address] [id number] Pizza Driver: Savanna Jean Baptiste MD, Phone: [phone] us Smooth Genao MD LAB MICROBIOLOGY - GENERAL ORDER TONIA Final Result Performing Organization Address City/[facility]/ZIP Co de Phone Number [facility] * Culture fluoroquinolone resistant organism (12/03/2024 12:00 AM EDT) Fluoroquinolone Resist GNR Cul Final report 12/06/2024 12:05 PM EDT [facility] Swab Rectum structure / Unknown 12/03/2024 12/03/2024 10:26 AM EDT Narrative [facility] - 12/06/2024 12:05 PM EDT Performed at: - [facility] [address] [id number] Pizza Driver: Savanna Jean Baptiste MD, Phone: [phone] us Smooth Genao MD LAB MICROBIOLOGY - GENERAL ORDER TONIA Final Result Performing Organization Address [facility] Co de Phone Number [facility] from Last 3 Months Insurance [place]ICA[place] - [place] [facility] Member Subscriber Plan / Payer (Ef fective 2020-Present) Name:RALPH SUTTON Relation to Subscriber:Self Name:Ralph Sutton Payer ID:[id number] Group ID:[id number] Type:Not on file Address: [facility] [address] [place] [address] Care Teams Occupational Therapy Program Director Relationship Specialty Start Date End Date Paul Bonilla NP [address] [place], [place] PCP - General Family Medicine 12/03/24
[2024-12-23 17:32] LABS: Appearance Urine Clear; Glucose Urine UA Negative (Negative); PH 5.5 (5.0-9.0); Specific Gravity - Urine 1.020 (1.005-1.025); UMIC TRIGGER UA YES
[2024-12-23 18:10] LABS: Anion Gap 14 (12-20); Blood Urea Nitrogen 20 mg/dL (9-16); Calcium 9.0 mg/dL (8.4-10.2); Carbon Dioxide 22 mmol/L (22-29); Chloride 108 mmol/L (96-108); Estimated Glomerular Filt Rate > 60; Potassium 4.3 mmol/L (3.3-5.1); Sodium 140 mmol/L (135-145)
[2024-12-23 18:12] LABS: Total Protein Urine Random 51 mg/dL (<12)
== END 2024-12-23 13:49 | disposition home or self-care (01) ==
LOC: HO.HMGCLDS 13:48
PROVIDERS: PCP Nurse Practitioner Family; Visit Provider Internal Medicine Hypertension Specialist
DX: R80.9 Proteinuria, unspecified (principal)
CPT/HCPCS: 36415; 80048; 81001; 82570; 84156